=== PATIENT | female | born 1955 | race Caucasian/White ===

== ENCOUNTER 2023-02-06 08:08 | Outpatient (OUT) | payer MEDICARE, OTHER, SELFPAY ==
--- NOTE | 2023-02-06 08:16 | CT_ITS ---
[address] [address] Patient Name: ANTONIO BLACKWELL MRN: [id number] date: 1955 Sex: F Assigned Patient Location: CT Current Patient Location: Accession/Order Number: [id number] Exam Date: 02/06/2023 08:20 Report Date: 02/10/2023 09:04 At the request of: MALLORY NELSON Procedure: CT lung screening low-dose EXAMINATION: CT lung screening low-dose HISTORY: Smoker F17.200, Screening For Lung Cancer Z12.2 COMPARISON: No relevant comparison available. TECHNIQUE: Axial, Coronal, and Sagittal images were created without the administration of IV contrast material. Dose reduction techniques were achieved by using automated exposure control and/or adjustment of mA and/or kV according to patient size and/or use of iterative reconstruction technique. FINDINGS: LUNGS: 5 mm nodule within anterior base of right upper lobe. 2 adjacent 4 mm irregular opacities within anterior lateral right middle lobe. A few pleural-based nodular densities within left hemithorax, largest is 7 mm. No overtly suspicious nodules or infiltrates. PLEURA: No mass, effusion, or pneumothorax. VASCULATURE: No abnormality. MORE: No mass or pathologic adenopathy. MEDIASTINUM: No mass or pathologic adenopathy. CARDIAC: No enlargement, pericardial thickening, or significant calcification. AORTA: No aneurysm or dissection. CHEST WALL: No mass or axillary adenopathy BONES: No bone lesion or fracture. LIMITED ABDOMEN: No suspicious findings. Limited images of the upper abdomen. OTHER: Negative. CT/CT lung screening low-dose IMPRESSION: 1. Lung-RADS Category 3- Probably benign. Probably benign finding(s)- short term follow up suggested; includes nodules with a low likelihood of becoming a clinically active cancer. Six month LDCT. Electronically authenticated by: CAM BETANCOURT Date: 02/10/2023 09:04
--- NOTE | 2023-02-06 08:16 | MM_ITS ---
Patient: ANTONIO BLACKWELL Exam Date: 02/06/2023 : 1955 Gender:F Ordering : MRS. TEJADA OMAR STOCK HANDLER-C Admission #: [id number] Family : DR GAYLE TEJEDA M.D. Order #: [id number] CLICK HERE TO VIEW EXAM RADIOLOGY REPORT PROCEDURE: MM TOMOSYNTHESIS SCREENING BI COMPARISON: None. INDICATIONS: Screening Calculator Name NCI Breast Cancer Risk Assessment Tool 5 Year Breast Cancer Risk 1.50% Lifetime Breast Cancer Risk 5.60% Personal Breast Cancer No Personal Ovarian Cancer No Treatments None Family Cancers None LOCATION: [facility] BREAST COMPOSITION: Heterogeneously dense,which may obscure small masses. FINDINGS: DIAGNOSTIC CATEGORY 2--BENIGN FINDING: Scattered benign-appearing nodules are present. Scattered benign-appearing calcifications are present. Scattered benign-appearing lymph nodes are present. RIGHT BREAST: No significant suspicious finding. LEFT BREAST: No significant suspicious finding. RECOMMENDATIONS: ROUTINE MAMMOGRAM AND CLINICAL EVALUATION IN 12 MONTHS. PLEASE NOTE: A NORMAL MAMMOGRAM DOES NOT EXCLUDE THE POSSIBILITY OF BREAST CANCER. A CLINICALLY SUSPICIOUS PALPABLE LUMP SHOULD BE BIOPSIED. Dictated by: Jose Roberto Ruffin MD on 02/06/2023 at 11:00 Approved by: Jose Roberto Ruffin MD on 02/06/2023 at 11:02
== END 2023-02-06 08:09 | disposition home or self-care (01) ==
LOC: CT 08:11
PROVIDERS: PCP Family Medicine; Visit Provider Nurse Practitioner Family
DX: F17.210 Nicotine dependence, cigarettes, uncomplicated (principal); Z12.2 Encounter for screening for malignant neoplasm of respiratory organs; Z12.31 Encounter for screening mammogram for malignant neoplasm of breast; R91.1 Solitary pulmonary nodule
CPT/HCPCS: 71271; 77063; 77067

== ENCOUNTER 2023-07-17 09:27 | Outpatient (OUT) | payer MEDICARE, OTHER, SELFPAY ==
--- NOTE | 2023-07-17 09:29 | CT_ITS ---
The [address] [address] Patient Name: ANTONIO BLACKWELL MRN: [id number] date: 1955 Sex: F Assigned Patient Location: CT Current Patient Location: CT Accession/Order Number: [id number] Exam Date: 07/17/2023 09:30 Report Date: 07/17/2023 11:03 At the request of: MALLORY NELSON Procedure: CT chest wo con EXAM: CT chest wo con HISTORY: Cigarette Smoker F17.210 follow-up pulmonary nodules COMPARISON: CT chest 02/06/2023. TECHNIQUE: CT imaging obtained through the chest without intravenous contrast. Coronal and axial MIP reformatted images obtained. Dose reduction techniques performed. FINDINGS: Heart size is normal. Mild to moderate coronary calcification No pericardial effusion. Normal thoracic vasculature. No thoracic lymphadenopathy. Central tracheobronchial tree is patent. No pleural effusion or pneumothorax. Scattered small pulmonary nodules are unchanged. A few small nodules, including at the right major fissure on image 58, the right minor fissure on image 51, and a pleural-based nodule at the left lung base on image 58, are most compatible with intrapulmonary lymph nodes, and are unchanged. Bones and soft tissues: No suspicious bone findings. Partially imaged upper abdomen: Limited. CT/CT chest wo con IMPRESSION: Stable pulmonary nodules. Lung-RADS Category 2. Benign findings. Electronically authenticated by: BO PATEL Date: 07/17/2023 11:03
--- OUTSIDE RECORDS SUMMARY | 2023-07-17 09:41 | XMS_ITS | CCD ---
Author Organization [facility] Care Team Providers Care Jewel Cupping Machine Operator Name Role Phone Christine Correa Admitting Unavailable Christine Correa Attending Unavailable MarcellRufus malcolm Primary Care Unavailable MOUKARBEL, DR POLK Admitting Unavailable ILEANA, DR ARAUJO Primary Care Unavailable MOUKARBFRANKLYN, DR POLK Attending Unavailable ILEANA, DR ARAUJO Primary Care Unavailable MOUKARBEL, DR POLK Attending Unavailable MOUKARBEL, DR POLK Consulting Unavailable MOUKARBEL, DR POLK Admitting Unavailable ZIEBER, DR CAM Cunningham Consulting Unavailable ILEANA, DR ARAUJO Primary Care Unavailable MOUKARBEL, DR POLK Attending Unavailable MOUKARBEL, DR POLK Admitting Unavailable MOUKARBEL, DR POLK Consulting Unavailable ILEANA, DR ARAUJO Primary Care Unavailable APOORVA NINO Attending Unavailable MICAAPOORVA CONTE Admitting Unavailable Daniadurga Demianwestley Unavailable Aaron BLAIR Attending Unavailable Medications Current Medications Medication Drug Class(es) Dates Sig (Normalized) Sig (Original) Aspir-81 (1 source) Aspir-81 Active atorvastatin 40 mg oral tablet (1 source) HMG-CoA Reductase Inhibitor take 1 tablet by mouth every twenty-four hours Atorvastatin Calcium 40 MG 1 tablet Orally Once a day for 90 Days Active lisinopril 20 mg oral tablet (1 source) Angiotensin Converting Enzyme Inhibitor take 1 tablet by mouth every twenty-four hours Lisinopril 20 MG 1 tablet Orally Once a day Active 24 hr metoprolol succinate 25 mg extended release oral tablet (1 source) beta-Adrenergic Sandra take 1 tablet by mouth every twenty-four hours Metoprolol Succinate ER 25 MG 1 tablet Orally Once a day Active Problems Active Problems Problem Classification Problem Date Documented Da te Episodic/Chronic Abdominal pain (1 source) Abdominal pain; Translations: [Unspecified abdominal pain] Episodic Chronic kidney disease (1 source) Chronic kidney disease stage 3A ; Translations: [Chronic kidney disease, stage 3a] Chronic Essential hypertension (2 sources) Essential hypertension; Translations: [Essential (primary) hypertension] Onset: 11-06-2021 Resolved: 11-06-2021 Chronic Hypertension with complications and secondary hypertension (4 sources) Hypertensive chronic kidney disease with stage 1 through stage 4 chronic kidney disease, or unspecified chronic kidney disease; Translations: [HTN CKD W/STAGE 1-4 CKD/UNS CKD] Onset: 11-11-2020 Chronic Other gastrointestinal disorders (1 source) Constipation; Translations: [Constipation, unspecified] Episodic Other nutritional; endocrine; and metabolic disorders (1 source) Obese class I; Translations: [Body mass index (BMI) 33.0-33.9, adult] Chronic Unclassified (1 source) M53.3 - Sacrococcygeal disorders, not elsewhere classified; Translations: [M53.3 - Sacrococcygeal disorders, not elsewhere classified] Onset: 06-22-2018 Past or Other Problems Problem Classification Problem Date Documented Da te Episodic/Chronic Chronic kidney disease (6 sources) Chronic kidney disease; Translations: [CHRONIC KIDNEY DISEASE STAGE 3B] Onset: 11-21-2020 Resolved: 11-06-2021 Other aftercare (1 source) longterm (current) use of non-steroidal anti-inflammator ies (NSAID) Onset: 11-06-2021 Resolved: 11-06-2021 Episodic Results Test Name Value Interpretation Reference Range Facil ity US KIDNEYSon 11-13-2020 US KIDNEYS EXAMINATION: US KIDNEYS HISTORY: CKD stage 3B , hypertension COMPARISON: No relevant comparison available. TECHNIQUE: Ultrasound examination was performed of the kidneys and bladder. FINDINGS: Right Kidney: Height: 4.9 cm Length: 9.3 cm Width: 4.6 cm Right Renal Artery Proximal PSV: 121.1 cm/s Proximal EDV: 30.2 cm/s Mid PSV: 105.1 cm/s Mid EDV: 24.1 cm/s Distal PSV: 94.1 cm/s Distal EDV: 26.5 cm/s Right Arcuate Artery Superior PSV: 27.3 cm/s Superior EDV: 10.2 cm/s Middle PSV: 28.0 cm/s Middle EDV: 12.3 cm/s Inferior PSV: 25.2 cm/s Inferior EDV: 10.9 cm/s Left Kidney: Height: 4.5 cm Length: 9.7 cm Width: 5.2 cm Left Renal Artery Proximal PSV: 109.4 cm/s Proximal EDV: 30.9 cm/s Mid PSV: 125.8 cm/s Mid EDV: 43.7 cm/s Distal PSV: 94.8 cm/s Distal EDV: 32.7 cm/s Left Arcuate Artery Superior PSV: 22.9 cm/s Superior EDV: 11.5 cm/s Middle PSV: 26.5 cm/s Middle EDV: 11.5 cm/s Inferior PSV: 25.8 cm/s Inferior EDV: 13.0 cm/s Aorta PSV: 78.3 cm/s Aorta EDV: 13.8 cm/s IMPRESSION: 1. Borderline mildly elevated flow velocities within the renal arteries bilaterally. 2. Normal appearance of kidneys; no cortical thinning, hydronephrosis, stones, or visible mass. Electronically authenticated by: CAM BETANCOURT Date: 2020-11-13 09:11 Normal The [facility] PROF CHEM 8 (BAS METB)on Anion gap [Moles/Vol] 16.3 mmol/L Normal [facility] Comment on above: Performed By: #### B MP #### [facility] [address] [place], [place] [address] Julieta Ann-Marie Calcium [Mass/Vol] 9.5 mg/dL Normal 8.4-10.2 [facility] Comment on above: Performed By: #### B MP #### [facility] [address] [place], [place] [address] Julieta Ann-Marie Chloride [Moles/Vol] 101 mmol/L Normal 98-107 [facility] Comment on above: Performed By: #### B MP #### [facility] [address] [place], [place] [address] Julieta Ann-Marie CO2 [Moles/Vol] 26.3 mmol/L Normal 22.0-30.0 [facility] Comment on above: Performed By: #### B MP #### [facility] [address] [place], [place] [address] Julieta Ann-Marie Creatinine [Mass/Vol] 1.22 mg/dL Critically high 0.52-1.04 [facility] Comment on above: Performed By: #### B MP #### [facility] [address] [place], [place] [address] Julieta Ann-Marie EGFR-AF KYRGYZ 54 mL/min/1.73m2 Critically low >=60 [facility] Comment on above: Performed By: #### B MP #### [facility] [address] [place], [place] [address] Julieta Ann-Marie EGFR-NON AF KYRGYZ 45 mL/min/1.73m2 Critically low >=60 [facility] Comment on above: Performed By: #### B MP #### [facility] [address] [place] [id number] Julieta Ann-Marie Glucose [Mass/Vol] 100 mg/dL Normal 74-106 [facility] Comment on above: Performed By: #### B MP #### [facility] [address] [place] [id number] Julieta Ann-Marie Potassium [Moles/Vol] 4.6 mmol/L Normal 3.4-5.0 [facility] Comment on above: Performed By: #### B MP #### [facility] [address] [place] [id number] Julieta Ann-Marie Sodium [Moles/Vol] 139 mmol/L Normal 137-145 [facility] Comment on above: Performed By: #### B MP #### [facility] [address] [place] [id number] Julieta Ann-Marie Urea nitrogen [Mass/Vol] 32.0 mg/dL Critically high 7.0-17.0 [facility] Comment on above: Performed By: #### B MP #### [facility] [address] [place], [place] [address] Julieta Ann-Marie Urea nitrogen/Creatinine [Mass ratio] 26.2 mg/mg Normal [facility] Comment on above: Performed By: #### B MP #### [facility] [address] [place], [place] [address] Julieta Ann-Marie PROTEIN RAND URINEon 11-11-2 021 UR PROT <5.0 Normal <=12.0 [facility] Comment on above: Performed By: #### P ROTU #### [facility] [address] [place] [address] Julieta Ann-Marie UA RANDOM W/MICROSCOPICon BACTERIA TRACE Abnormal NONE SEEN [facility] Comment on above: Performed By: #### U AMIC #### [facility] [address] [place] [address] Julieta Ann-Marie Bilirubin Ql (U) Negative Normal NEGATIVE [facility] Comment on above: Performed By: #### U AMIC #### [facility] [address] [place] [address] Julieta Ann-Marie CAST NONE SEEN Normal NONE SEEN [facility] Comment on above: Performed By: #### U AMIC #### [facility] [address] [place] [address] Julieta Ann-Marie Clarity (U) SL CLOUDY Abnormal CLEAR [facility] Comment on above: Performed By: #### U AMIC #### [facility] [address] [place] [address] Julieta Ann-Marie Color (U) LT. YELLOW Normal YELLOW [facility] Comment on above: Performed By: #### U AMIC #### [facility] [address] [place] [address] Julieta Ann-Marie Crystals LM Nom (Urine sed) NONE SEEN Normal NONE SEEN [facility] Comment on above: Performed By: #### U AMIC #### [facility] [address] [place] [address] Julieta Ann-Marie Epithelial cells LM Ql (Urine sed) RARE Normal NONE SEEN /RARE [facility] Comment on above: Performed By: #### U AMIC #### [facility] [address] [place] [address] Julieta Ann-Marie Glucose Ql (U) Negative Normal NEGATIVE The [facility] Comment on above: Performed By: #### U AMIC #### [facility] [address] [place] [address] Julieta Ann-Marie Hemoglobin Ql (U) MODERATE Abnormal NEGATIVE [facility] Comment on above: Performed By: #### U AMIC #### [facility] [address] [place] [address] Julieta Ann-Marie Ketones Ql (U) Negative Normal NEGATIVE The [facility] Comment on above: Performed By: #### U AMIC #### [facility] [address] [place] [phone] Julieta Ann-Marie LEUKOCYTES TRACE Abnormal NEGATIVE [facility] Comment on above: Performed By: #### U AMIC #### [facility] [address] [place] [phone] Julieta Ann-Marie MUCOUS NONE SEEN Normal NONE SEEN [facility] Comment on above: Performed By: #### U AMIC #### [facility] [address] [place] [address] Julieta Ann-Marie Nitrite Ql (U) Negative Normal NEGATIVE The [facility] Comment on above: Performed By: #### U AMIC #### [facility] [address] [place] [address] Julieta Ann-Marie pH (U) 5.5 [pH] Normal 5-9 [facility] Comment on above: Performed By: #### U AMIC #### [facility] [address] [place] [address] Julieta Ann-Marie RBC 0-2 Normal 0-2 [facility] Comment on above: Performed By: #### U AMIC #### [facility] [address] [place] [address] Julieta Ann-Marie SPEC GRAVITY 1.010 Normal 1.005-<=1.025 The [facility] Comment on above: Performed By: #### U AMIC #### [facility] [address] [place] [address] Julieta Ann-Marie UA PROTEIN Negative Normal NEGATIVE/ TRACE [facility] Comment on above: Performed By: #### U AMIC #### [facility] [address] [place], [place] [id number] Julieta Ann-Marie Urobilinogen Qn (U) 0.2 {Khang'U}/dL Normal 0.2 - 1. 0 [facility] Comment on above: Performed By: #### U AMIC #### [facility] [address] [place] [address] Julieta Ann-Marie WBC 0-2 Abnormal NONE SEEN [facility] Comment on above: Performed By: #### U [facility] #### [facility] [address] [place] [phone] Julieta Jacobsen XR hip LT min 2V(w/wo pelvis )*on 06-22-2018 XR hip LT min 2V(w/wo pelvis)* [facility] [place] [address] [place] [address] XRay Report Signed Patient: Antonio Juárez MR#: [id number] : 1955 Acct:[id number] Age/Sex: 63 / F ADM Date: 06/22/18 Loc: XDUCLY Room: Type: [facility] Attending Dr: Christine Correa NP Ordering Provider: Christine Correa NP Date of Service: 06/22/18 XR/XR wrist RT min 3V*: PAIN AFTER FALL ([id number]) XR/XR hip LT min 2V(w/wo pelvis)*: PAIN AFTER FALL ([id number]) XR/XR sacrum coccyx min 2V: PAIN AFTER FALL Copies to: Christine Correa NP 4 views RIGHT wrist HISTORY: Fell yesterday. Continued pain of the RIGHT wrist and tailbone. LEFT hip pain. COMPARISON:None No acute bony process or significant bony malalignment is present. XR/XR wrist RT min 3V* IMPRESSION: No significant bony abnormality. 2 views LEFT hip HISTORY: Fell COMPARISON:None No acute bony process or significant bony malalignment is present. IMPRESSION: No significant bony abnormality. 5 views of the sacrum and coccyx HISTORY: Fell COMPARISON:None No acute bony process or significant bony malalignment is present.SI joints are maintained. No coccygeal displacement or sacral fracture identified. IMPRESSION: No significant bony abnormality. Impression dictated by: Reagan Portillo M.D.06/22/2018 10:49 AM [facility] Transcribed By: LILIAN 06/22/18 1049 Dictated By: Reagan Portillo DO 06/22/18 1046 Signed By: 06/22/18 1049 Normal [facility] Vital Signs Date Time Vital Sign Value Performing Clinician Facility 11-06-2021 11:20-0400 Body height 152.4 cm Aziz Bakhous Other [facility] Other 11-06-2021 11:20-0400 Body mass index (BMI) [Ratio] 35.93 kg/m2 Aziz Bakhous Other [facility] Other 11-06-2021 11:20-0400 Body temperature 97.8 [degF] Aziz Bakhous Other [facility] Other 11-06-2021 11:20-0400 Body weight 83.46 kg Aziz Bakhous Other [facility] Other 11-06-2021 11:20-0400 Diastolic blood pressure 74 mm[Hg] Aziz Bakhous Other [facility] Other 11-06-2021 11:20-0400 Respiratory rate 18 /min Aziz Bakhous Other [facility] Other 11-06-2021 11:20-0400 SaO2% (BldA) [Mass fraction] 97 % Aziz Bakhous Other [facility] Other 11-06-2021 11:20-0400 Systolic blood pressure 125 mm[Hg] Aziz Bakhous Other [facility] Other Encounters Encounter Date Encounter Type Care Provider Facility Start: 03-31-2023 ambulatory Aaron Norman ty:FLAV[facility] Nicholas Start: 11-06-2021 End: 11-06-2021 ambulatory Azwestley Bakhous Other [facility] Other Start: 11-06-2021 Office outpatient ne w 30 minutes Aziz Bakhous [facility] Start: 08-14-[address] RUFUS TEJEDA Facility: [facility] Start: 05-22-[address] FELICITAS Chau ility:[facility] Start: 12-13-2020 End: 12-14-[address] RUFUS TEJEDA Facility:[facility] Start: 11-11-2020 End: 11-12-[address] CAM BETANCOURT Facility:[facility] Start: 06-22-2018 End: 06-22-2018 Patient encounter procedure Christine Correa Facility:[facility] Payers Date Payer Category Payer Self-pay 1957 Unknown [id number] 1955 Unknown [id number] [id number] [id number] 1955 Unknown [id number] 2.16.84 [id number] 1955 Unknown [id number] 2.16.84 [id number] 1955 Unknown [id number] 2.16.84 [id number] Unknown [id number] Social History Date Type Detail Facility Unknown if ever smoked [facility] Other Sex Assigned At Sex Assigned At Bir th [facility] Other Evaluation note 11-06-2021 Note Date & Type Note Facility 11-06-2021 Evaluation note Encounter Date Diagnosis Assessment Notes Oct, Chronic kidney disease, stage 3a (ICD-10 - N18.31) CKD is likely from NSAID use. I asked the patient to stop NSAIDs. Blood pressure seems well controlled. Patient is already on lisinopril No fluid overload I asked the patient to stop NSAIDs Follow-up with the patient in 4 months Oct, Primary hypertension (ICD-10 - I10) Blood pressure seems well controlled. I will continue same blood pressure medication Oct, NSAID long-term use (ICD-10 - Z79.1) I asked the patient to stop NSAIDs and take Tylenol instead [facility] Other History general Narrative - Reported Note Date & Type Note Facility History general Narrative - Reported Type Medical History HTN Surgical History C SECTIONS X3 Hospitalization History see above Hospitalization History HTN [facility] Other Summary Purpose Family History No Family History Records FoundNo Family History Records FoundNo Family History Records Found Advance Directives No Advanced Directives Records FoundNo Advanced Directives Records FoundNo Advanced Directives Records Found Additional Source Comments INFORMATION SOURCE (unrecogn ized section and content) DATE CREATED AUTHOR 07/01/2018 [facility] DATE CREATED AUTHOR AUTHOR'S ORGANIZ ATION 08/17/2021 [facility] DATE CREATED AUTHOR AUTHOR'S ORGANIZ ATION 12/31/2022 [facility] REASON FOR VISIT (unrecogniz ed section and content) RENAL CKD 3 FOR RECORDS PERTAINING TO PATIENTS WHO ARE OR HAVE BEEN ENROLLED IN A CHEMICAL DEPENDENCY/SUBSTANCEABUSE PROGRAM, SOME INFORMATION MAY BE OMITTED. This clinical summary was aggregated from multiple sources. Caution should be exercised in using it in the provision of clinical care. This summary normalizes information from multiple sources, and as a consequence, information in this document may materially change the coding, format and clinical context of patient data. In addition, data may be omitted in some cases. CLINICAL DECISIONS SHOULD BE BASED ON THE PRIMARY CLINICAL RECORDS. [employer] provides no warranty or guarantee of the accuracy or completeness of information in this document.
== END 2023-07-17 09:28 | disposition home or self-care (01) ==
LOC: CT 09:27
PROVIDERS: PCP Family Medicine; Visit Provider Nurse Practitioner Family
DX: R91.8 Other nonspecific abnormal finding of lung field (principal); F17.210 Nicotine dependence, cigarettes, uncomplicated
CPT/HCPCS: 71250

== ENCOUNTER 2024-12-08 08:41 | Outpatient (OUT) | payer MEDICARE, OTHER, SELFPAY ==
--- OUTSIDE RECORDS SUMMARY | 2024-11-29 15:15 | XMS_ITS | Encounter Summary ---
Author Organization [facility] Address [address] [place] [address] Care Team Providers Care Landcare Facilitator Name Role Phone Rufus House MD Primary Care Provider [phone] Reason for Referral * Imaging (Routine) - Pending Review Specialty Diagnoses / Procedures Referred By Contac t Referred To Contact Cardiology Diagnoses Coronary artery disease involving kasigl[place] coronary artery of [place] heart without angina pectoris Dizziness Procedures Transthoracic echo (TTE) complete Phuc Gee MD [address] [place] [address] Phone: tel: fax: Referral ID Status Reason Start Date Expiration Date Visits Requested Visits Authorized [id number] Pending Review Perform Procedure 11/29/2024 11/29/2025 1 1 Encounter Details Date Type Department Care Team (Late st Contact Info) Description 11/29/2024 3:15 PM EDT Office Visit [address] [address] Phuc Gee MD [address] [place] [address] Coronary artery disease involving kasigluk coronary artery of [place] heart without angina pectoris (Primary Dx); Primary hypertension; Dizziness Social History Tobacco Use Types Packs/Day Years Used Date Smoking Tobacco: Every Day Cigarettes Smokeless Tobacco: Never Tobacco Cessation:Ready to Q uit: Not Asked; Counseling Given: Not Answered Alcohol Use Standard Drinks/Week Comments Not Currently 0 (1 standard drink = 0.6 oz pur e alcohol) Comments Unknown Sex and Gender Information Value Date Recorded Sex Assigned at Female 11/24/2024 9:20 AM EDT Legal Sex Female 11:27 PM EDT Gender Identity Female 11/24/2024 9:20 AM EDT Sexual Orientation Heterosexual or Straight 09/2024 9:20 AM EDT documented as of this encounter Last Filed Vital Signs Vital Sign Reading Time Taken Comments Blood Pressure 132/80 11/29/2024 3:33 PM EDT Pulse 59 11/29/2024 3:33 PM EDT Temperature - - Respiratory Rate - - Oxygen Saturation 98% 11/29/2024 3:33 PM EDT Inhaled Oxygen Concentration - - Weight 79.4 kg (175 lb) 11/29/2024 3:33 PM EDT Height 152.4 cm (5') 11/29/2024 3:33 PM EDT Body Mass Index 34.18 11/29/2024 3:33 PM EDT documented in this encounter Progress Notes * Phuc Gee MD - 11/29/2024 3:15 PM EDT Images from the original note were not included. [place] [facility] Subjective Stephanie Juárez is a 69 y.o. year old female patient being as to re-establish care with cardiology. Patient states her blood pressure has been running high her PCP upped her metoprolol to 75mg, patient states her blood pressure are still high and vary a lot. Patient states she has been dizzy and lightheaded and is not sure if its the blood pressure or if its the medication. Patient states she has chest pressure which goes from her chest, to her back and jaw line. Patient states her symptoms could be from anxiety due to family issues. Patient complains of leg swelling when she wakes up in themorning, palpitations/racing heart. SOB and fatigue. Patient Active Problem List Diagnosis Anxiety Asthmatic bronchitis Body mass index (BMI) 36.0-36.9, adult Carotid artery stenosis Chest pain Chronic obstructive pulmonary disease (CMS/HCC) Constipation Coronary arteriosclerosis Electrocardiogram abnormal Hypertensive disorder Pure hypercholesterolemia Seasonal allergic rhinitis Sialoadenitis Skin sensation disturbance Smoker Stage 3a chronic kidney disease (CMS/HCC) Tarsal tunnel syndrome Adjustment disorder with anxiety Morbid (severe) obesity due to excess calories (CMS/HCC) Pulmonary nodules Sialolithiasis Vitamin D deficiency Family History Problem Relation Name Age of Onset Coronary artery disease Father Social History Tobacco Use Smoking status: Every Day Current packs/day: 1.00 Types: Cigarettes Smokeless tobacco: Never Substance Use Topics Alcohol use: Not Currently Drug use: Never HPI Stephanie is seen as a new patient to re-establish care. I had seen her in the past last time in 2014. she is a 69-year-old woman with history of coronary artery disease mild nonobstructive by cardiac catheterization in 2014. At that time I managed her chest pain symptoms medically. In addition she has hypertension and hyperlipidemia on treatment. In the past she used to have chronic kidney disease and this improved apparently on follow-up afterstopping NSAIDs. Today she reports that she has been having occasional symptoms of chest discomfort similar to what she had in the past. Those are very infrequent and are not bothering her. In addition she has infrequent symptoms of palpitations. She has no shortness of breath at rest or with exertion. No leg edema. She complains of occasional dizziness and lightheadedness. Her blood pressure monitoring at home shows elevated blood pressure with systolic around 160. Her PCP recently increase metoprolol succinate to 75 mg once daily. Review of Systems Constitutional: Positive for malaise/fatigue. Cardiovascular: Positive for chest pain and palpitations. Negative for dyspnea on exertion and leg swelling. Respiratory: Negative for shortness of breath. Neurological: Positive for dizziness and light-headedness. Objective Visit Vitals BP 132/80 (BP Location: Left arm, Patient Position: Sitting) Pulse 59 Ht 1.524 m (5') Wt 79.4 kg (175 lb) SpO2 98% BMI 34.18 kg/m?? Smoking Status Every Day BSA 1.83 m?? Physical Exam Constitutional: Appearance: She is well-developed. She is obese. She is not ill-appearing. HENT: Head: Normocephalic and atraumatic. Nose: Nose normal. Eyes: General: No scleral icterus. Pupils: Pupils are equal, round, and reactive to light. Neck: Thyroid: No thyromegaly. Vascular: No JVD. Cardiovascular: Rate and Rhythm: Normal rate and regular rhythm. Pulses: Radial pulses are 2+ on the right side and 2+ on the left side. Heart sounds: Normal heart sounds. No murmur heard. No friction rub. No gallop. Pulmonary: Effort: Pulmonary effort is normal. No respiratory distress. Breath sounds: Normal breath sounds. No wheezing or rales. Chest: Chest wall: No tenderness. Abdominal: General: Bowel sounds are normal. There is no distension. Palpations: Abdomen is soft. Tenderness: There is no abdominal tenderness. Musculoskeletal: General: No swelling. Cervical back: Neck supple. Skin: General: Skin is warm and dry. Neurological: General: No focal deficit present. Mental Status: She is alert and oriented to person, place, and time. Psychiatric: Mood and Affect: Mood normal. Behavior: Behavior is cooperative. Judgment: Judgment normal. Allergies Allergies Allergen Reactions Azithromycin Unknown Other Reaction(s): tongue swelling Amoxicillin Other Sulfa (Sulfonamide Antibiotics) Sulfamethoxazole-Trimethoprim Unknown Other Reaction(s): Fogginess Medications Current Outpatient Medications: ALPRAZolam (Xanax) 0.25 mg tablet, alprazolam 0.25 mg tablet PRN (Patient taking differently: Take 0.25 mg by mouth if needed each day.), Disp: , Rfl: aspirin 81 mg EC tablet, in the morning., Disp: , Rfl: atorvastatin (Lipitor) 40 mg tablet, atorvastatin 40 mg tablet TAKE 1 TABLET BY MOUTH EVERY DAY FOR90 DAYS, Disp: , Rfl: lisinopril 20 mg tablet, lisinopril 20 mg tablet TAKE 1 TABLET BY MOUTH EVERY DAY, Disp: , Rfl: nitroglycerin (Nitrostat) 0.4 mg SL tablet, Nitrostat 0.4 mg sublingual tablet, Disp: , Rfl: amLODIPine (Norvasc) 5 mg tablet, Take 1 tablet (5 mg) by mouth in the morning., Disp: 90 tablet, Rfl: 3 ljwaicyfpe-hlprhsjx-xahngkrvsf (Breztri Aerosphere) 160-9-4.8 mcg/actuation HFA aerosol inhaler, every 12 (twelve) hours. (Patient not taking: Reported on 11/29/2024), Disp: , Rfl: isosorbide mononitrate ER (Imdur) 30 mg 24 hr tablet, isosorbide mononitrate ER 30 mg tablet,extended release 24 hr (Patient not taking: Reported on 11/29/2024), Disp: , Rfl: metoprolol succinate XL (Toprol-XL) 25 mg 24 hr tablet, Take 3 tablets (75 mg) by mouth in the morning. Do not crush or chew., Disp: 270 tablet, Rfl: 3 Recent Labs Blood testing 11/06/2020: Hemoglobin 15.1, platelets 224, BUN 25, creatinine 1.5, EGFR 34, potassium4.3, LFTs normal, triglycerides 209, cholesterol 247, LDL 150, HDL 55. TSH 1.580. Imaging and other tests Cardiac catheterization 08/25/2014: Mild two-vessel coronary artery disease involving the proximal LAD and mid RCA. 20% proximal to midLAD narrowing, 20% mid RCA narrowing. carotid ultrasound October 2020: Mild plaque disease in the carotids. Stress test 08/15/2014: No evidence of ischemia. Normal myocardial perfusion with soft tissue artifact. No ischemic ECG changes seen. Echocardiogram 08/16/2014: Global left ventricular systolic function is normal. LVEF 60%. Normal diastolic function. Normal right ventricular systolic function. Mild tricuspid regurgitation. Doppler studies suggest normal right-sided pressures. Assessment/Plan Diagnoses and all orders for this visit: Coronary artery disease involving kasigluk coronary artery of [place] heart without angina pectoris - metoprolol succinate XL (Toprol-XL) 25 mg 24 hr tablet; Take 3 tablets (75 mg) by mouth in the morning. Do not crush or chew. - Transthoracic echo (TTE) complete; Future Primary hypertension - amLODIPine (Norvasc) 5 mg tablet; Take 1 tablet (5 mg) by mouth in the morning. - metoprolol succinate XL (Toprol-XL) 25 mg 24 hr tablet; Take 3 tablets (75 mg) by mouth in the morning. Do not crush or chew. Dizziness - Transthoracic echo (TTE) complete; Future 1. CAD, no clear angina: Overall doing well. I will continue current aspirin, statin and metoprololsuccinate. Her blood pressure is not controlled I will add amlodipine 5 mg once daily that will also act as an antianginal medication and will have with any residual angina she might have. 2. Hypertension: I reviewed all her blood pressure monitoring and it shows that the blood pressure is not controlled. I will add amlodipine 5 mg once daily. I agree with the recent increase of metoprolol succinate to 75 mg once daily. I have refilled that for her. 3. CAD, dizziness: I am going to check an echocardiogram to rule out any structural heart disease. If the blood pressure is controlled and the echocardiogram does not show significant abnormalities,then I will plan on seeing her in follow-up in 1 year. Follow up in about 1 year (around 11/29/2025). Phuc Gee MD documented in this encounter Plan of Treatment Scheduled Orders Name Type Priority Associated Diagnoses Order Schedule Transthoracic echo (TTE) complete Echocardiography Routine Coronary artery disease involving kasigl[place] coronary artery of [place]igl[place] heart without angina pectoris Dizziness Expected: 11/29/2024 (Approximate), Expires: 11/29/2026 documented as of this encounter Visit Diagnoses Diagnosis Coronary artery disease involving kasigl[place] coronary artery of kas[place] heart without angina pectoris- Primary Primary hypertension Unspecified essential hypertension Dizziness Dizziness and giddiness documented in this encounter Care Teams Landcare Facilitator Relationship Specialty Start Date End Date Rufus House MD 3 [facility] PCP - General 03/25/22 documented as of this encounter
--- OUTSIDE RECORDS SUMMARY | 2024-12-08 08:43 | XMS_ITS | Encounter Summary ---
Author Organization [facility] Address [address] [place] [address] Care Team Providers Care Firewood Cutter Name Role Phone Rufus House MD Primary Care Provider [phone] Love Ortega BRUSH HAND Unavailable [phone] Bertha Hernandez RN Unavailable [phone] Encounter Details Date Type Department Care Team (Late st Contact Info) Description 05/10/2024 Abstract [facility] [address] [facility] [address] [place] [address] Rufus House MD [address] [facility] [address] [place] [address] Social History Tobacco Use Types Packs/Day Years Used Date Smoking Tobacco: Every Day Cigarettes Smokeless Tobacco: Never Alcohol Use Standard Drinks/Week Comments Not Currently 0 (1 standard drink = 0.6 oz pure alcohol) caffeine intajke: 2-3 cups per day PHQ-2 Answer Date Recorded Patient Health Questionnaire-2 Score 0 03/30/2024 Comments Unknown Sex and Gender Information Value Date Recorded Sex Assigned at Not on file Legal Sex Female 7:47 PM EDT Gender Identity Not on file Sexual Orientation Not on file documented as of this encounter Plan of Treatment Not on file documented as of this encounter Visit Diagnoses Not on filedocumented in this encounter Additional Health Concerns Assessment Noted Time PHQ-9 Depression Total Score: 0 01/24/20 23 12:00 PM EDT documented as of this encounter Care Teams Firewood Cutter Relationship Specialty Start Date End Date Rufus House MD [address] [facility] [address] [place] [address] PCP - General Family Medicine 08/27/22 Love Ortega NP 112 [facility] 110 [place] [address] PCP - ACO Reach 05/28/24 Bertha Hernandez, RN [address] [facility] [address] [place] [address] Registered Nurse Family Medicine 06/02/24 06/07/24 documented as of this encounter
--- OUTSIDE RECORDS SUMMARY | 2024-12-08 08:43 | XMS_ITS | Encounter Summary ---
Author Organization [facility] Address [address] [place] [address] Care Team Providers Care Director Speech And Hearing Name Role Phone Rufus Tejeda MD Primary Care Provider Mallory Nelson NP Unavailable [phone] Bertha Hernandez RN Unavailable [phone] Encounter Details Date Type Department Care Team (Late st Contact Info) Description 02/10/2023 Clinisync Result Encounter [facility] External Department Unsolicited Mallory Nelson, GIANFRANCO [address] [facility] [address] [place] [address] Social History Tobacco Use Types Packs/Day Years Used Date Smoking Tobacco: Every Day Cigarettes Alcohol Use Standard Drinks/Week Comments Not Asked 0 (1 standard drink = 0.6 oz pure alcohol) caffeine intajke: 2-3 cups per day PHQ-2 Answer Date Recorded Patient Health Questionnaire-2 Score 0 01/23/2023 Comments Unknown Sex and Gender Information Value Date Recorded Sex Assigned at Not on file Legal Sex Female 7:47 PM EDT Gender Identity Not on file Sexual Orientation Not on file documented as of this encounter Plan of Treatment Not on file documented as of this encounter Procedures Procedure Name Priority Date/Time Associated Diagnosis Comments CT LUNG SCREENING LOW DOSE 02/10/2023 9:04 AM EDT documented in this encounter Results * CT LUNG SCREENING LOW DOSE (02/10/2023 9:04 AM EDT) Anatomical Region Laterality Modality Other 02/10/2023 9:04 AM EDT Narrative 02/10/2023 9:04 AM EDT [address] [address] [address] Scan Report Signed Patient: STEPHANIE JUÁREZ MR#: [id number] : 1955 Acct:[id number] Age/Sex: 67 / F ADM Date: 02/06/23 Loc: CT Attending Dr: MALLORY NELSON Ordering Physician: MALLORY NELSON Date of Service: 02/06/23 Procedure(s): CT lung screening low-dose Accession Number(s): [id number] cc: RUFUS TEJEDA [place] [id number] Patient Name: STEPHANIE JUÁREZ MRN: [id number] date: 1955 Sex: F Assigned Patient Location: CT Current Patient Location: Accession/Order Number: [id number] Exam Date: 02/06/2023 08:20 Report Date: 02/10/2023 09:04 At the request of: MALLORY NELSON Procedure: CT lung screening low-dose EXAMINATION: CT lung screening low-dose HISTORY: Smoker F17.200, Screening For Lung Cancer Z12.2 COMPARISON: No relevant comparison available. TECHNIQUE: Axial, Coronal, and Sagittal images were created without the administration of IV contrast material. Dose reduction techniques were achieved by using automated exposure control and/or adjustment of mA and/or kV according to patient size and/or use of iterative reconstruction technique. FINDINGS: LUNGS: 5 mm nodule within anterior base of right upper lobe. 2 adjacent 4 mm irregular opacities within anterior lateral right middle lobe. A few pleural-based nodular densities within left hemithorax, largest is 7 mm. No overtly suspicious nodules or infiltrates. PLEURA: No mass, effusion, or pneumothorax. VASCULATURE: No abnormality. MORE: No mass or pathologic adenopathy. MEDIASTINUM: No mass or pathologic adenopathy. CARDIAC: No enlargement, pericardial thickening, or significant calcification. AORTA: No aneurysm or dissection. CHEST WALL: No mass or axillary adenopathy BONES: No bone lesion or fracture. LIMITED ABDOMEN: No suspicious findings. Limited images of the upper abdomen. OTHER: Negative. CT/CT lung screening low-dose IMPRESSION: 1. Lung-RADS Category 3- Probably benign. Probably benign finding(s)- short term follow up suggested; includes nodules with a low likelihood of becoming a clinically active cancer. Six month LDCT. Electronically authenticated by: JAREK BISHOP Date: 02/10/2023 09:04 Dictated By: Jarek Bishop M.D. Signed By: 02/10/23905 DD/ 3 TD/TT: Professional Services Specialist: Procedure Note Radiology, Radiologist, MD - 02/10/2023 [place] [address] CT Scan Report Signed Patient: STEPHANIE JUÁREZ AMR#: [id number] : 1955cct:[id number] Age/Sex: 67 / FADM Date: 02/06/23 Loc: CT Attending Dr: MALLORY NELSON Ordering Physician: MALLORY NELSON Date of Service: 02/06/23 Procedure(s): CT lung screening low-dose Accession Number(s): [id number] cc: RUFUS TEJEDA [place] [id number] Patient Name: STEPHANIE JUÁREZ MRN: [id number] date: 1955 Sex: F Assigned Patient Location: CT Current Patient Location: Accession/Order Number: [id number] Exam Date: 02/06/2023 08:20 Report Date: 02/10/2023 09:04 At the request of: MALLORY NELSON Procedure: CT lung screening low-dose EXAMINATION: CT lung screening low-dose HISTORY: Smoker F17.200, Screening For Lung Cancer Z12.2 COMPARISON: No relevant comparison available. TECHNIQUE: Axial, Coronal, and Sagittal images were created without the administration of IV contrast material. Dose reduction techniques were achieved by using automated exposure control and/or adjustment of mA and/or kV according to patient size and/or use of iterative reconstruction technique. FINDINGS: LUNGS: 5 mm nodule within anterior base of right upper lobe. 2 adjacent 4mm irregular opacities within anterior lateral right middle lobe. A few pleural-based nodular densities within left hemithorax, largest is 7 mm.No overtly suspicious nodules or infiltrates. PLEURA: No mass, effusion, or pneumothorax. VASCULATURE: No abnormality. MORE: No mass or pathologic adenopathy. MEDIASTINUM: No mass or pathologic adenopathy. CARDIAC: No enlargement, pericardial thickening, or significantcalcification. AORTA: No aneurysm or dissection. CHEST WALL: No mass or axillary adenopathy BONES: No bone lesion or fracture. LIMITED ABDOMEN: No suspicious findings. Limited images of the upperabdomen. OTHER: Negative. CT/CT lung screening low-dose IMPRESSION: 1. Lung-RADS Category 3- Probably benign. Probably benign finding(s)-short term follow up suggested; includes nodules with a low likelihood ofbecoming a clinically active cancer. Six month LDCT. Electronically authenticated by: JAREK BISHOP Date: 02/10/2023 09:04 Dictated By: Jarek Bishop M.D. Signed By:02/10/23905 DD/ 3 TD/TT: Professional Services Specialist: Mallory Nelson LOAN REVIEW ANALYST [facility] Final Resu lt documented in this encounter Visit Diagnoses Not on filedocumented in this encounter Additional Health Concerns Assessment Noted Time PHQ-9 Depression Total Score: 0 01/24/20 12:00 PM EDT documented as of this encounter Care Teams Director Speech And Hearing Relationship Specialty Start Date End Date Rufus Tejeda MD [address] [facility] [address] [place] [address] PCP - General Family Medicine 08/27/22 Mallory Nelson NP [address] [facility] [address] [place] [address] PCP - ACO Reach 05/28/24 Bertha Hernandez, MARIA R [address] [facility] [address] [place] [address] Registered Nurse Family Medicine 06/02/24 06/07/24 documented as of this encounter
--- OUTSIDE RECORDS SUMMARY | 2024-12-08 08:43 | XMS_ITS | Encounter Summary ---
Author Organization [facility] Address [address] [place] [address] Care Team Providers Care Repair Armature Winder Name Role Phone Rufus House MD Primary Care Provider [phone] Love Ortega APPLIANCE MECHANIC Unavailable [phone] Bertha Hernandez RN Unavailable [phone] Encounter Details Date Type Department Care Team (Late st Contact Info) Description 01/24/2023 Orders Only [facility] [address] [place] [address] [place] [address] A, Unknown Practice [address] [place], [place] [id number] Social History Tobacco Use Types Packs/Day Years [...] Procedure Name Priority Date/Time Associated Diagnosis Comments ELECTROCARDIOGRAM REPORT Routine 023 9:31 AM EDT documented in this encounter Results * Electrocardiogram Report (01/23/2023 9:31 AM EDT) us Unknown Practice A IN CLINIC/BEDSIDE ORDERABLES Final Result documented in this encounter Visit Diagnoses Not on filedocumented in this encounter Additional Health Concerns Assessment Noted Time PHQ-9 Depression Total Score: 0 01/24/20 23 12:00 PM EDT documented as of this encounter Care Teams Repair Armature Winder Relationship Specialty Start Date End Date Rufus House MD [address] [facility] [address] [place] [address] PCP - General Family Medicine 08/27/22 Love Ortega NP [address] [facility] [address] [place] [address] PCP - ACO Reach 05/28/24 Bertha Hernandez, MARIA R [address] [facility] [address] [place] [address] Registered Nurse Family Medicine 06/02/24 06/07/24 documented as of this encounter
--- OUTSIDE RECORDS SUMMARY | 2024-12-08 08:43 | XMS_ITS | Clinical Summary ---
Author Organization [facility] Address [address] [place] [address] Care Team Providers Care Tiltrotor Crew Chief Name Role Phone Rufus House MD Primary Care Provider [phone] Allergies Active Allergy Reactions Criticality Noted Date Comments Amoxicillin Other 01/22/2023 Azithromycin Unknown High 01/22/2023 Other Reaction(s): tongue swelling Sulfa (Sulfonamide Antibiotics) 01/24/2022 Sulfamethoxazole-Trimethopri m Unknown 01/22/2023 Other Reaction(s): Fogginess Medications ALPRAZolam (Xanax) 0.25 mg tablet alprazolam 0.25 mg tablet PRN 03/05/20 22 Active aspirin 81 mg EC tablet in the morning. Acti ve atorvastatin (Lipitor) 40 mg tablet atorvastatin 40 mg tablet TAKE 1 TABLET BY MOUTH EVERY DAY FOR 90 DAYS Active lisinopril 20 mg tablet lisinopril 20 mg tablet TAKE 1 TABLET BY MOUTH EVERY DAY Active nitroglycerin (Nitrostat) 0.4 mg SL tablet Nitrostat 0.4 mg sublingual tablet Active isosorbide mononitrate ER (Imdur) 30 mg 24 hr tablet isosorbide mononitrate ER 30 mg tablet,extended release 24 hr Active budesonide-glyco pyr-formoterol (Breztri Aerosphere) 160-9-4.8 mcg/actuation HFA aerosol inhaler every 12 (twelve) hours. 08/07/19 22 Active amLODIPine (Norvasc) 5 mg tabletIndication s:Primary hypertension Take 1 tablet (5 mg) by mouth in the morning. 90 tablet 3 11/30/19 25 026 Active metoprolol succinate XL (Toprol-XL) 25 mg 24 hr tabletIndication s:Coronary artery disease involving [place] coronary artery of [place] heart without angina pectoris,Primary hypertension Take 3 tablets (75 mg) by mouth in the morning. Do not crush or chew. 270 tablet 3 11/30/19 25 026 Active dilTIAZem (Cardizem) 60 mg immediate release tablet diltiazem 60 mg tablet 025 Discontin ued(Med List Cleanup) metoprolol succinate XL (Toprol-XL) 25 mg 24 hr tabletIndication s:Essential (primary) hypertension TAKE 1 TABLET BY MOUTH EVERY DAY 90 tablet 3 11/05/19 23 025 Discontin ued(Dose adjustmen t) Active Problems Problem Noted Date Diagnosed Date Pulmonary nodules 03/04/2024 Morbid (severe) obesity due to excess calories 0 12/15/2023 Sialolithiasis 01/22/2023 Vitamin D deficiency 01/22/2023 Adjustment disorder with anxiety 10/21/2022 Body mass index (BMI) 36.0-36.9, adult Chest pain 03/25/2022 Chronic obstructive pulmonary disease 03/25/2022 Coronary arteriosclerosis 03/25/2022 Electrocardiogram abnormal 03/25/2022 Carotid artery stenosis 08/03/2021 Pure hypercholesterolemia 11/06/2020 Skin sensation disturbance 11/06/2020 Tarsal tunnel syndrome 11/06/2020 Asthmatic bronchitis 01/18/2020 Seasonal allergic rhinitis 01/18/2020 Sialoadenitis 12/30/2018 Smoker 12/17/2018 Stage 3a chronic kidney disease 04/27/2018 Constipation 07/15/2017 Anxiety 04/07/2017 Hypertensive disorder 08/22/2016 Encounters Date Type Department Care Team Description 11/29/2024 3:15 PM EDT Office Visit [facility] [address] [place] [address] Phuc Gee MD Coronary artery disease involving [place] coronary artery of [place] heart without angina pectoris (Primary Dx); Primary hypertension; Dizziness from Last 3 Months Family History Medical History Relation Name Comments Coronary artery disease Father Relation Name Status Comments Father Mother Social History Tobacco Use Types Packs/Day Years [...] Heterosexual or Straight 09/2024 9:20 AM EDT Last Filed Vital Signs Vital Sign Reading [...] Mass Index 34.18 11/29/2024 3:33 PM EDT Plan of Treatment Health Maintenance Due Date Last Done Comments CT Colonography 1955 FIT-DNA 1955 FIT 1955 FOBT 1955 Medicare Annual Wellness (AWV) 1955 Sigmoidoscopy 1955 Depression Screening 1969 Pneumococcal Vaccine: 50+ Ye ars (1 of 2 - PCV) 1976 Adult Tetanus 1979 Zoster Vaccines (1 of 2) 2007 Fall Risk Screening 2022 COVID-19 Vaccine ( - 2023-2 5 season) 2023 Influenza Vaccine (#1) 2024 Mammogram 02/06/2025 02/06/2023 Colonoscopy 09/02/2027 09/01/2017 Colorectal Cancer Screening 09/02/2027 HIB Vaccines Aged Out No longer eligi ble based on patient's age to complete this topic HPV Vaccines Aged Out No longer eligi ble based on patient's age to complete this topic IPV Vaccines Aged Out No longer eligi ble based on patient's age to complete this topic Meningococcal B Vaccine Aged Out No l onger eligible based on patient's age to complete this topic Meningococcal Vaccine Aged Out No frannie lisa eligible based on patient's age to complete this topic Rotavirus Vaccines Aged Out No longer eligible based on patient's age to complete this topic Insurance MEDICARE Care Teams Tiltrotor Crew Chief Relationship Specialty Start Date End Date Rufus House MD [address] [place] [address] PCP - General 03/25/22
--- OUTSIDE RECORDS SUMMARY | 2024-12-08 08:43 | XMS_ITS | Encounter Summary ---
Author Organization [facility] Address [address] [facility] [place] [address] Care Team Providers Care Apprentice Technician Name Role Phone Rufus House MD Primary Care Provider [phone] Love Ortega CONCRETE POURER Unavailable [phone] Bertha Hernandez RN Unavailable [phone] Encounter Details Date Type Department Care Team (Late st Contact Info) Description 03/31/2024 Abstract [facility] [address] [facility] 110 [place] [address] Rufus House MD [address] [facility] 110 [place] [address] Social History Tobacco Use Types Packs/Day Years [...] documented as of this encounter Care Teams Apprentice Technician Relationship Specialty Start Date End Date Rufus House MD [address] [facility] 110 [place] [address] PCP - General Family Medicine 08/27/22 Love Ortega NP 112 [facility] 110 [place] [address] PCP - ACO Reach 05/28/24 Bertha Hernandez, RN [address] [facility] 230 [place] [address] Registered Nurse Family Medicine 06/02/24 06/07/24 documented as of this encounter
--- OUTSIDE RECORDS SUMMARY | 2024-12-08 08:43 | XMS_ITS | Clinical Summary ---
Author Organization [facility] Address [address] [place] [address] Care Team Providers Care Actuarial Director Name Role Phone Rufus House MD Primary Care Provider [phone] Love Ortega WASHER CARCASS Unavailable [phone] Allergies Active Allergy Reactions Criticality Noted Date Comments Amoxicillin Other 01/22/2023 Azithromycin High 01/22/2023 Other Reaction(s): tongue swelling Erythromycin 01/22/2023 Other Reaction(s): vomiting Sulfamethoxazole-Trimethopri m 01/22/2023 Other Reaction(s): Fogginess Medications aspirin (Aspir-Low) 81 MG EC tablet 1 (one) time each day at the same time. Active albuterol HFA (ProAir HFA) 90 mcg/act inhalerIndications:Finisher Polisher portillo obstructive pulmonary disease, unspecified COPD type (HCC) Inhale 2 puffs every 6 (six) hours if needed for wheezing. 18 g 11 023 Active lisinopril 20 MG tabletIndications:Essen tial hypertension TAKE 1 TABLET BY MOUTH EVERY DAY IN THE MORNING 100 tablet 3 025 Active atorvastatin (Lipitor) 40 MG tabletIndications:Pure hypercholesterolemia TAKE 1 TABLET BY MOUTH EVERY DAY 100 tablet 3 025 Active ALPRAZolam (Xanax) 0.25 MG tabletIndications:Adjus tment disorder with anxiety Take 1 tablet (0.25 mg) by mouth every 12 (twelve) hours 60 tablet 025 Active metoprolol succinate XL (Toprol-XL) 50 MG 24 hr tabletIndications:Essen tial hypertension TAKE 1 TABLET (50 MG) BY MOUTH DAILY 90 tablet 1 06/20/2 025 Active metoprolol succinate XL (Toprol-XL) 25 MG 24 hr tabletIndications:Essen tial (primary) hypertension TAKE 1 TABLET (25 MG) BY MOUTH DAILY DO NOT CRUSH OR CHEW TAKE WITH 50 MG TAB 100 tablet 3 025 Active metoprolol succinate XL (Toprol-XL) 25 MG 24 hr tabletIndications:Essen tial (primary) hypertension Take 1 tablet (25 mg) by mouth Daily Do not crush or chew. 30 tablet 025 2024 Discontinued Active Problems Problem Noted Date Diagnosed Date Pulmonary nodules 03/04/2024 BMI 35.0-35.9,adult 12/15/2023 Morbid (severe) obesity due to excess calories 0 12/15/2023 Asthmatic bronchitis 01/22/2023 Class 2 obesity 01/22/2023 Constipation 01/22/2023 Disorder of salivary gland 01/22/2023 Sialolithiasis 01/22/2023 Skin sensation disturbance 01/22/2023 Tarsal tunnel syndrome 01/22/2023 Vitamin D deficiency 01/22/2023 Chronic obstructive pulmonary disease, unspecifi ed 10/30/2022 Essential (primary) hypertension 10/30/2022 Assessment & Plan (03/30/2024 3:12 PM EST): Our specific goals, for your hypertension, is to keep your blood pressure less than 140/90, and the importance of weight control. We made recommendations on how to control your blood pressure, and minimize your risk of these copmplications. We also discussed your current barriers to a healthy living and importance of healthy diet and exercise. Prior to your visit today we have reviewed your chart and formed a plan to assist with providing you the best possible care. We reviewed the possible complications of hypertension including, stroke, heart failure and kidney impairment. In addition, we discussed your medications, the importance of taking them as prescribed. DASH diet handouts Pure hypercholesterolemia 10/30/2022 Seasonal allergic rhinitis 10/30/2022 Situational anxiety 10/30/2022 Smoker 10/30/2022 Assessment & Plan (03/30/2024 3:20 PM EST): Discussed smoking cessation with the patient. Encouraged patient to try to cut back gradually and soon quit smoking. Discussed ways to quit smoking including gum, patches, medication, and gradually reducing the number of cigarettes smoked daily. Discussed potential health risks of mcc smoking. Patient voiced understanding. Benefits of cessation, both health and financial, were reviewed. Stage 3a chronic kidney disease 10/30/2022 Adjustment disorder with anxiety 10/21/2022 Chest pain 03/25/2022 Coronary arteriosclerosis 03/25/2022 Electrocardiogram abnormal 03/25/2022 Carotid artery stenosis 08/03/2021 Encounters Date Type Department Care Team Description 12/03/2024 Refill [facility] [address] [place] [address] [place] [address] Love Ortega NP Essential (primary) hypertension 11/11/2024 2:00 PM EDT Office Visit [facility] [address] [place] [address] [place] [address] Love Ortega NP Essential (primary) hypertension (Primary Dx) 11/11/2024 Bamboo flowsheet [facility] [address] [place] [address] [place] [address] Love Ortega NP 11/11/2024 Travel 10/08/2024 Refill [facility] [address] [place] [address] [place] [address] Rufus House MD Essential hypertension from Last 3 Months Family History Medical History Relation Name Comments Heart disease Father Diabetes Mother Hypertension Mother Relation Name Status Comments Father Mother Social History Tobacco Use Types Packs/Day Years Used Date Smoking Tobacco: Every Day Cigarettes Smokeless Tobacco: Never Tobacco Cessation:Ready to Q uit: Not Asked; Counseling Given: Yes Alcohol Use Standard Drinks/Week Comments Not Currently 0 (1 standard drink = 0.6 oz pure alcohol) caffeine intajke: 2-3 cups per day PHQ-2 Answer Date Recorded Patient Health Questionnaire-2 Score 0 11/11/2024 Comments Unknown Sex and Gender Information Value Date Recorded Sex Assigned at Not on file Legal Sex Female 7:47 PM EDT Gender Identity Not on file Sexual Orientation Not on file Last Filed Vital Signs Vital Sign Reading Time Taken Comments Blood Pressure 172/96 11/11/2024 2:08 PM EDT Pulse 62 11/11/2024 2:08 PM EDT Temperature 36.8 C (98.3 F) 08/26/2024 8:07 AM EDT Respiratory Rate 16 11/11/2024 2:08 PM EDT Oxygen Saturation 97% 11/11/2024 2:08 PM EDT Inhaled Oxygen Concentration - - Weight 80.3 kg (177 lb) 11/11/2024 2:08 PM EDT Height 152.4 cm (5') 11/11/2024 2:08 PM EDT Body Mass Index 34.57 11/11/2024 2:08 PM EDT Plan of Treatment Health Maintenance Due Date Last Done Comments CT Colonography 1957 FIT-DNA 1957 FIT 1957 FOBT 1957 Sigmoidoscopy 1955 Medicare Annual Wellness (AWV) 03/30/2025 03/30/2024, 01/23/2023 Mammogram 08/26/2025 02/06/2023, 02/06/2023, 02/06/2023 Postponed from 02/07/2024 (Patient Refused) Colonoscopy 09/02/2027 09/01/2017 Colorectal Cancer Screening 09/02/2027 Influenza Vaccine Discontinued Pneumococcal Vaccine: 65+ Years Discontinued Procedures Procedure Name Priority Date/Time Associated Diagnosis Comments BI MAMMOGRAM SCREENING BILATERAL Routine 02/06/2023 Encounter for screening mammogram for malignant neoplasm of breast COLONOSCOPY Routine 09/01/2017 12:00 PM EDT from Last 3 Months or Most Recently Relevant to Health Maintenance Results * Bilateral screening mammogram (02/06/2023) 02/06/2023 Shannon [facility] - 02/06/2023 12:05 PM EDT normal us Love Ortega WASHER CARCASS IMG BI PROCEDURES Final Resu lt [facility] [address] [place] [address], * Colonoscopy (09/01/2017 12:00 PM EDT) Anatomical Region Laterality Modality Endoscopy 09/01/2017 12:0 0 PM EDT Narrative 09/01/2017 12:00 PM EDT PERFORMED AT [facility] LOCATION:[id number] normal Procedure Note CONVERSION, GENERIC - 09/04/2022 PERFORMED AT [facility] LOCATION:[id number] normal Rufus House MD ENDOSCOPY PROCEDURE ORDERABLES F inal Result from Last 3 Months or Most Recently Relevant to Health Maintenance Insurance MEDICARE [facility] [place] [address] Care Teams Actuarial Director Relationship Specialty Start Date End Date Rufus House MD [address] [facility] 110 [place] [address] PCP - General Family Medicine 08/27/22 Love Ortega NP [address] [place] [address] [place] [address] PCP - ACO Reach 05/28/24
--- OUTSIDE RECORDS SUMMARY | 2024-12-08 08:43 | XMS_ITS | Encounter Summary ---
Author Organization [facility] Address [address] [place] [address] Care Team Providers Care Sign Hanger Supervisor Name Role Phone Rufus Tejeda MD Primary Care Provider [phone] Mallory Nelson NP Unavailable [phone] Bertha Hernandez RN Unavailable [phone] Encounter Details Date Type Department Care Team (Late st Contact Info) Description 02/06/2023 Clinisync Result Encounter [facility] External Department Unsolicited Mallory Nelson, GIANFRANCO [address] [facility] 110 [place] [address] Social History Tobacco Use Types Packs/Day Years [...] Procedure Name Priority Date/Time Associated Diagnosis Comments MM TOMOSYNTHESIS SCREENING BI 02/06/2023 11:02 AM EDT documented in this encounter Results * MM TOMOSYNTHESIS SCREENING BI (02/06/2023 11:02 AM EDT) Anatomical Region Laterality Modality Other 02/06/2023 11:0 2 AM EDT Narrative 02/06/2023 11:02 AM EDT [facility] [id number] Mammography Report Signed Patient: STEPHANIE JUÁREZ MR#: [id number] : 1955 Acct:[id number] Age/Sex: 67 / F ADM Date: 02/06/23 Loc: CT Attending Dr: MALLORY NELSON Ordering Physician: MALLORY NELSON Results: Date of Service: 02/06/23 Follow Up: Procedure(s): MM tomosynthesis screening BI Accession Number(s): [id number] cc: RUFUS TEJEDA ; MALLORY NELSON Patient: STEPHANIE JUÁREZ Exam Date: 02/06/2023 : 1955 Gender:F Ordering : MRS. MALLORY NELSON COPING MACHINE OPERATOR-C Admission #: [id number] Family : DR RUFUS TEJEDA M.D. Order #: [id number] CLICK HERE TO VIEW EXAM RADIOLOGY REPORT PROCEDURE: MM TOMOSYNTHESIS SCREENING BI COMPARISON: None. INDICATIONS: Screening Calculator Name NCI Breast Cancer Risk Assessment Tool 5 Year Breast Cancer Risk 1.50% Lifetime Breast Cancer Risk 5.60% Personal Breast Cancer No Personal Ovarian Cancer No Treatments None Family Cancers None LOCATION: [facility] BREAST COMPOSITION: Heterogeneously dense,which may obscure small masses. FINDINGS: DIAGNOSTIC CATEGORY 2--BENIGN FINDING: Scattered benign-appearing nodules are present. Scattered benign-appearing calcifications are present. Scattered benign-appearing lymph nodes are present. RIGHT BREAST: No significant suspicious finding. LEFT BREAST: No significant suspicious finding. RECOMMENDATIONS: ROUTINE MAMMOGRAM AND CLINICAL EVALUATION IN 12 MONTHS. PLEASE NOTE: A NORMAL MAMMOGRAM DOES NOT EXCLUDE THE POSSIBILITY OF BREAST CANCER. A CLINICALLY SUSPICIOUS PALPABLE LUMP SHOULD BE BIOPSIED. Dictated by: Jose Roberto Ruffin MD on 02/06/2023 at 11:00 Approved by: Jose Roberto Ruffin MD on 02/06/2023 at 11:02 Dictated By: Jose Roberto Ruffin M.D. Signed By: 02/06/23 1103 DD/ 110 TD/TT: Director Of Construction: Procedure Note Radiology, Radiologist, - 02/06/2023 [facility] [id number] Mammography Report Signed Patient: STEPHANIE JUÁREZ AMR#: [id number] : 1955cct:[id number] Age/Sex: 67 / FADM Date: 02/06/23 Loc: CT Attending Dr: MALLORY NELSON Ordering Physician: Janelle NELSONults: Date of Service: 02/06/23Follow Up: Procedure(s): MM tomosynthesis screening BI Accession Number(s): [id number] cc: RUFUS TEJEDA ; MALLORY NELSON Patient: STEPHANIE JUÁREZ Exam Date: 02/06/2023 : 1955 Gender:F Ordering : MRS. TEJADA OMAR COPING MACHINE OPERATOR-C Admission #: [id number] Family : DR RUFUS TEJEDA M.D. Order #: [id number] CLICK HERE TO VIEW EXAM RADIOLOGY REPORT PROCEDURE: MM TOMOSYNTHESIS SCREENING BI COMPARISON: None. INDICATIONS: Screening Calculator Name NCI Breast Cancer Risk Assessment Tool 5 Year Breast Cancer Risk 1.50% Lifetime Breast Cancer Risk 5.60% Personal Breast Cancer No Personal Ovarian Cancer No Treatments None Family Cancers None LOCATION: [facility] BREAST COMPOSITION: Heterogeneously dense,which may obscure smallmasses. FINDINGS: DIAGNOSTIC CATEGORY 2--BENIGN FINDING: Scattered benign-appearing nodules are present. Scatteredbenign-appearing calcifications are present. Scattered benign-appearing lymph nodes are present. RIGHT BREAST: No significant suspicious finding. LEFT BREAST: No significant suspicious finding. RECOMMENDATIONS: ROUTINE MAMMOGRAM AND CLINICAL EVALUATION IN 12 MONTHS. PLEASE NOTE: A NORMAL MAMMOGRAM DOES NOT EXCLUDE THE POSSIBILITY OFBREAST CANCER. A CLINICALLY SUSPICIOUS PALPABLE LUMP SHOULD BE BIOPSIED. Dictated by: Jose Roberto Ruffin MD on 02/06/2023 at 11:00 Approved by: Jose Roberto Ruffin MD on 02/06/2023 at 11:02 Dictated By: Jose Roberto Ruffin M.D. Signed By:02/06/23 1103 DD/ 110 TD/TT: Director Of Construction: us Mallory Nelson COPING MACHINE OPERATOR [facility] Final Resu lt documented in this encounter Visit Diagnoses Not on filedocumented in this encounter Additional Health Concerns Assessment Noted Time PHQ-9 Depression Total Score: 0 01/24/20 23 12:00 PM EDT documented as of this encounter Care Teams Sign Hanger Supervisor Relationship Specialty Start Date End Date Rufus Tejeda MD [address] [facility] 110 [place] [address] PCP - General Family Medicine 08/27/22 Mallory Nelson NP [address] [facility] 110 [place] [address] PCP - ACO Reach 05/28/24 Bertha Hernandez, MARIA R [address] [facility] [address] [place] [address] Registered Nurse Family Medicine 06/02/24 06/07/24 documented as of this encounter
--- OUTSIDE RECORDS SUMMARY | 2024-12-08 08:43 | XMS_ITS | Encounter Summary ---
Author Organization [facility] Address [address] [place] [address] Care Team Providers Care Group Leader Wafer Polishing Name Role Phone Rufus House MD Primary Care Provider [phone] Love Ortega PHARMACY CLINICAL SPECIALIST Unavailable [phone] Bertha Hernandez RN Unavailable [phone] Encounter Details Date Type Department Care Team (Late st Contact Info) Description 01/24/2023 Abstract [facility] [address] [facility] 110 [place] [address] Rufus House MD [address] [facility] 110 [place] [address] Social History Tobacco Use Types Packs/Day Years [...] documented as of this encounter Care Teams Group Leader Wafer Polishing Relationship Specialty Start Date End Date Rufus House MD [address] [facility] [address] [place], [place] [address] PCP - General Family Medicine 08/27/22 Love Ortega, PHARMACY CLINICAL SPECIALIST 112 [facility] 110 [place], [place] [address] PCP - ACO Reach 05/28/24 Bertha Hernandez, RN [address] [facility] [address] [place] [address] Registered Nurse Family Medicine 06/02/24 06/07/24 documented as of this encounter
--- OUTSIDE RECORDS SUMMARY | 2024-12-08 08:43 | XMS_ITS | Encounter Summary ---
Author Organization [facility] Address [address] [facility] [place] [address] Care Team Providers Care Blender Snuff Name Role Phone Rufus House MD Primary Care Provider [phone] Love Ortega BREAST WORKER Unavailable [phone] Bertha Hernandez RN Unavailable [phone] Encounter Details Date Type Department Care Team (Late st Contact Info) Description 07/17/2023 Abstract [facility] [address] [facility] 110 [place] [address] Rufus House MD [address] [facility] 110 [place] [address] Social History Tobacco Use Types Packs/Day Years [...] documented as of this encounter Care Teams Blender Snuff Relationship Specialty Start Date End Date Rufus House MD [address] [facility] [address] [place], [place] [id number] PCP - General Family Medicine 08/27/22 Love Ortega, BREAST WORKER 112 [facility] 110 [place], [place] [id number] PCP - ACO Reach 05/28/24 Bertha Hernandez, RN [address] [facility] 230 [place] [address] Registered Nurse Family Medicine 06/02/24 06/07/24 documented as of this encounter
--- OUTSIDE RECORDS SUMMARY | 2024-12-08 08:43 | XMS_ITS | Encounter Summary ---
Author Organization [facility] Address [address] [place] [address] Care Team Providers Care Worm Farm Laborer Name Role Phone Rufus House MD Primary Care Provider [phone] Love Ortega ORTHOPEDIC RN Unavailable Reason for Visit * Reason Comments Med Change Request Encounter Details Date Type Department Care Team (Late st Contact Info) Description 12/03/2024 Refill [facility] [address] [facility] 110 [place] [address] Love Ortega NP [address] [facility] [address] [place] [address] Essential (primary) hypertension Social History Tobacco Use Types Packs/Day Years [...] as of this encounter Visit Diagnoses Diagnosis Essential (primary) hypertension Unspecified essential hypertension documented in this encounter Additional Health Concerns Assessment Noted Time PHQ-9 Depression Total Score: 0 01/24/20 23 12:00 PM EDT documented as of this encounter Care Teams Worm Farm Laborer Relationship Specialty Start Date End Date Rufus House MD [address] [facility] [address] [place] [address] PCP - General Family Medicine 08/27/22 Love Ortega NP [address] [facility] 110 [place] [address] PCP - ACO Reach 05/28/24 documented as of this encounter
--- OUTSIDE RECORDS SUMMARY | 2024-12-08 08:43 | XMS_ITS | Encounter Summary ---
Author Organization [facility] Address [address] [place] [address] Care Team Providers Care Funeral Sales Manager Name Role Phone Rufus House MD Primary Care Provider Love Ortega PATIENT REGISTRATION SUPERVISOR Unavailable [phone] Bertha Hernandez RN Unavailable [phone] Encounter Details Date Type Department Care Team (Late st Contact Info) Description 02/10/2023 Orders Only [facility] [address] [place] [address] [place] [id number] A, Unknown Practice [address] [place], [place] [id number] Social History Tobacco Use Types Packs/Day Years [...] Diagnosis Comments CT LUNG SCREENING LOW DOSE Routine 02/10/2023 9:53 AM EDT documented in this encounter Results * CT lung screening low dose (02/10/2023 9:53 AM EDT) Anatomical Region Laterality Modality Lung Computed Tomogra phy us Unknown Practice A IMG CT PROCEDURES Final Resul t documented in this encounter Visit Diagnoses Not on filedocumented in this encounter Additional Health Concerns Assessment Noted Time PHQ-9 Depression Total Score: 0 01/24/20 23 12:00 PM EDT documented as of this encounter Care Teams Funeral Sales Manager Relationship Specialty Start Date End Date Rufus House MD [address] [facility] [address] [place] [address] PCP - General Family Medicine 08/27/22 Love Ortega NP [address] [facility] 110 [place] [address] PCP - ACO Reach 05/28/24 Bertha Hernandez, MARIA R [address] [facility] [address] [place] [address] Registered Nurse Family Medicine 06/02/24 06/07/24 documented as of this encounter
--- OUTSIDE RECORDS SUMMARY | 2024-12-08 08:43 | XMS_ITS | Encounter Summary ---
Author Organization [facility] Address [address] [place] [address] Care Team Providers Care Computing Consultant Name Role Phone Rufus Tejeda MD Primary Care Provider [phone] Mallory Nelson NP Unavailable [phone] Bertha Hernandez RN Unavailable [phone] Encounter Details Date Type Department Care Team (Late st Contact Info) Description 07/17/2023 Clinisync Result Encounter [facility] External Department Unsolicited Mallory Nelson, GIANFRANCO [address] [facility] [address] [place] [address] Social History Tobacco Use Types Packs/Day Years [...] Name Priority Date/Time Associated Diagnosis Comments CT CHEST WO CON 07/17/2023 11:03 AM EDT documented in this encounter Results * CT CHEST WO CON (07/17/2023 11:03 AM EDT) Anatomical Region Laterality Modality Other 07/17/2023 11:0 3 AM EDT Narrative 07/17/2023 11:05 AM EDT [address] [address] [address] Scan Report Signed Patient: STEPHANIE JUÁREZ MR#: [id number] : 1955 Acct:[id number] Age/Sex: 68 / F ADM Date: 07/17/23 Loc: CT Attending Dr: MALLORY NELSON Ordering Physician: MALLORY NELSON Date of Service: 07/17/23 Procedure(s): CT chest wo con Accession Number(s): [id number] cc: RUFUS TEJEDA [place] [id number] Patient Name: STEPHANIE JUÁREZ MRN: [id number] date: 1955 Sex: F Assigned Patient Location: CT Current Patient Location: CT Accession/Order Number: [id number] Exam Date: 07/17/2023 09:30 Report Date: 07/17/2023 11:03 At the request of: MALLORY NELSON Procedure: CT chest wo con EXAM: CT chest wo con HISTORY: Cigarette Smoker F17.210 follow-up pulmonary nodules COMPARISON: CT chest 02/06/2023. TECHNIQUE: CT imaging obtained through the chest without intravenous contrast. Coronal and axial MIP reformatted images obtained. Dose reduction techniques performed. FINDINGS: Heart size is normal. Mild to moderate coronary calcification No pericardial effusion. Normal thoracic vasculature. No thoracic lymphadenopathy. Central tracheobronchial tree is patent. No pleural effusion or pneumothorax. Scattered small pulmonary nodules are unchanged. A few small nodules, including at the right major fissure on image 58, the right minor fissure on image 51, and a pleural-based nodule at the left lung base on image 58, are most compatible with intrapulmonary lymph nodes, and are unchanged. Bones and soft tissues: No suspicious bone findings. Partially imaged upper abdomen: Limited. CT/CT chest wo con IMPRESSION: Stable pulmonary nodules. Lung-RADS Category 2. Benign findings. Electronically authenticated by: BALJIT ERICKSON Date: 07/17/2023 11:03 Dictated By: Baljit Erickson M.D. Signed By: 07/17/23 1105 DD/ 1103 TD/TT: Armature Tester: Procedure Note Radiology, Radiologist, MD - 07/17/[address] [address] [address] Scan Report Signed Patient: STEPHANIE JUÁREZ [facility]#: [id number] : 1955cct:[id number] Age/Sex: 68 / FADM Date: 07/17/23 Loc: CT Attending Dr: MALLORY NELSON Ordering Physician: MALLORY NELSON Date of Service: 07/17/23 Procedure(s): CT chest wo con Accession Number(s): [id number] cc: RUFUS TEJEDA [place] [id number] Patient Name: STEPHANIE JUÁREZ MRN: [id number] date: 1955 Sex: F Assigned Patient Location: CT Current Patient Location: CT Accession/Order Number: [id number] Exam Date: 07/17/2023 09:30 Report Date: 07/17/2023 11:03 At the request of: MALLORY NELSON Procedure: CT chest wo con EXAM: CT chest wo con HISTORY: Cigarette Smoker F17.210 follow-up pulmonary nodules COMPARISON: CT chest 02/06/2023. TECHNIQUE: CT imaging obtained through the chest without intravenouscontrast. Coronal and axial MIP reformatted images obtained. Dose reductiontechniques performed. FINDINGS: Heart size is normal. Mild to moderate coronary calcification Nopericardial effusion. Normal thoracic vasculature. No thoracic lymphadenopathy.Central tracheobronchial tree is patent. No pleural effusion or pneumothorax. Scattered small pulmonary nodules are unchanged. A few small nodules, including at the right major fissure on image 58, the right minor fissure on image51, and a pleural-based nodule at the left lung base on image 58, are most compatible with intrapulmonary lymph nodes, and are unchanged. Bones and soft tissues: No suspicious bone findings. Partially imaged upper abdomen: Limited. CT/CT chest wo con IMPRESSION: Stable pulmonary nodules. Lung-RADS Category 2. Benignfindings. Electronically authenticated by: BALJIT ERICKSON Date: :03 Dictated By: Baljit Erickson M.D. Signed By:07/17/23 1105 DD/ 1103 TD/TT: Armature Tester: us Mallory Nelson [employer] [facility] [facility] Final Resu lt documented in this encounter Visit Diagnoses Not on filedocumented in this encounter Additional Health Concerns Assessment Noted Time PHQ-9 Depression Total Score: 0 01/24/20 12:00 PM EDT documented as of this encounter Care Teams Computing Consultant Relationship Specialty Start Date End Date Rufus Tejeda MD [address] [facility] [address] [place] [address] PCP - General Family Medicine 08/27/22 Mallory Nelson, GIANFRANCO [address] [facility] [address] [place] [address] PCP - ACO Reach 05/28/24 Bertha Hernandez, MARIA R [address] [facility] [address] [place] [address] Registered Nurse Family Medicine 06/02/24 06/07/24 documented as of this encounter
--- OUTSIDE RECORDS SUMMARY | 2024-12-08 08:43 | XMS_ITS | Encounter Summary ---
Author Organization [facility] Address [address] [place] [address] Care Team Providers Care Dedicated Local Truck Driver Name Role Phone Rufus House MD Primary Care Provider [phone] Love Ortega KETTLE OPERATOR HEAD Unavailable [phone] Bertha Hernandez RN Unavailable [phone] Encounter Details Date Type Department Care Team (Late st Contact Info) Description 07/08/2023 Orders Only [facility] [address] [place] [address] [place] [address] Love Ortega NP [address] [place] [address] [place] [address] Vitamin D deficiency (Primary Dx); Adjustment disorder with anxiety ; Essential hypertension ; Persistent proteinuria; Cigarette smoker Social History Tobacco Use Types Packs/Day Years [...] as of this encounter Visit Diagnoses Diagnosis Vitamin D deficiency- Primary Adjustment disorder with anxiety Adjustment disorder with anxiety Essential hypertension Unspecified essential hypertension Persistent proteinuria Cigarette smoker Tobacco use disorder documented in this encounter Additional Health Concerns Assessment Noted Time PHQ-9 Depression Total Score: 0 01/24/20 23 12:00 PM EDT documented as of this encounter Care Teams Dedicated Local Truck Driver Relationship Specialty Start Date End Date Rufus House MD [address] [facility] [address] [place] [address] PCP - General Family Medicine 08/27/22 Love Ortega, KETTLE OPERATOR HEAD [address] [facility] [address] [place] [address] PCP - ACO Reach 05/28/24 Bertha Hernandez, MARIA R [address] [facility] [address] [place] [address] Registered Nurse Family Medicine 06/02/24 06/07/24 documented as of this encounter
--- OUTSIDE RECORDS SUMMARY | 2024-12-08 08:46 | XMS_ITS | CCD ---
Author Organization [facility] Care Team Providers Care Superintendent [employer] Name Role Phone Christine Correa Admitting Unavailable Christine Correa Attending Unavailable Rufus Tejeda Primary Care Unavailable MOUKARBEL, DR POLK Admitting Unavailable JESSEE, DR ARAUJO Primary Care Unavailable MOUKARBEL, DR POLK Attending Unavailable JESSEE, DR ARAUJO Primary Care Unavailable MOUKARBEL, DR POLK Attending Unavailable MOUKARBEL, DR POLK Consulting Unavailable MOUKARBEL, DR POLK Admitting Unavailable ZIEBER, DR CAM Cunningham Consulting Unavailable JESSEE, DR ARAUJO Primary Care Unavailable MOUKARBEL, DR POLK Attending Unavailable MOUKARBEL, DR POLK Admitting Unavailable MOUKARBEL, DR POLK Consulting Unavailable JESSEE, DR ARAUJO Primary Care Unavailable APOORVA NINO Attending Unavailable APOORVA NINO Admitting Unavailable Arturo Quevedo Unavailable Aaron BLAIR Attending Unavailable Rufus Tejeda MD Primary Care Provider Mallory Ortega NP Unavailable ANN-MARIE WILSON Attending Unavailable MALLORY ORTEGA Attending Unavailable ANN-MARIE WILSON Attending Unavailable RUFUS TEJEDA Attending Unavailable MOUKAFELICITAS HAMILTON Attending Unavailable Allergies Allergy Classification Reported Allergen(s) Allergy Type Date of Onset Reaction(s) Facility (17 sources) Amoxicillin; Translations: [AMOXICILLIN] Drug Allergy 01-23-20 Other [facility] (17 sources) Azithromycin; Translations: [AZITHROMYCIN] Drug Allergy 01-23-20 [facility] (16 sources) Erythromycin Drug Allergy 01-23-20 [facility] (17 sources) Sulfamethoxazole / Trimethoprim; Translations: [SULFAMETHOXAZOLE-TR IMETHOPRIM] Drug Allergy 01-23-20 [facility] (1 source) Sulfonamides (Antibiotic); Translations: [SULFA (SULFONAMIDE ANTIBIOTICS)] Propensity to adverse reactions to drug (disorder) 01-25-20 [facility] Medications Current Medications Medication Drug Class(es) Dates Sig (Normalized) Sig (Original) [id number] 200 actuat albuterol 0.09 mg/actuat metered dose inhaler (16 sources) beta2-Adrenergic Agonist Start: 01-23-2023 take 2 puff(s) by inhalation every six hours for wheezing albuterol HFA (ProAir HFA) 90 mcg/act inhaler Indications: Chronic obstructive pulmonary disease, unspecified COPD type (HCC) Inhale 2 puffs every 6 (six) hours if needed for wheezing. 18 g 11 01/23/2023 Active ALPRAZolam 0.25 mg oral tablet (20 sources) Benzodiazepine Start: 07-08-2023 End: 09-25-2024 take 1 tablet by mouth once ALPRAZolam (Xanax) 0.25 MG tablet Indications: Adjustment disorder with anxiety Take 1 tablet (0.25 mg) by mouth every 12 (twelve) hours 60 tablet 08/26/2024 Active Aspir-81 (1 source) Aspir-81 Active aspirin 81 mg delayed release oral tablet (18 sources) Platelet Aggregation Inhibitor, Nonsteroidal Anti-inflammatory Drug Start: 05-08-2024 Aspirin (Thierry Low Dose Aspirin) 81 mg tablet,delayed release (DR/EC) Active 81 MG PO Daily May 08, 2024 9:40am Start: 09-01-2017 End: 05-08-2024 take 2 tablets by mouth once daily Aspirin (Thierry Low Dose Aspirin) 81 mg Tablet,Delayed Release (Dr/Ec) Discontinued 2 TAB PO Daily August 31, 2017 11:00pm May 08, 2024 9:40am atorvastatin 40 mg oral tablet (18 sources) HMG-CoA Reductase Inhibitor Start: 07-19-2024 take 1 tablet by mouth once daily atorvastatin (Lipitor) 40 MG tablet Indications: Pure hypercholesterolemia TAKE 1 TABLET BY MOUTH EVERY DAY 100 tablet 3 07/19/2024 Active Start: 05-08-2024 take 1 tablet by mehrdad th once daily Atorvastatin 40 mg tablet Active 40 MG PO Daily May 08, 2024 12:00am Start: 11-03-2023 take 1 tablet by mehrdad th once daily atorvastatin (Lipitor) 40 MG tablet Indications: Pure hypercholesterolemia (CMS/HCC) TAKE 1 TABLET BY MOUTH EVERY DAY FOR 100 DAYS 90 tablet 11/03/2023 Active take 1 tablet by mehrdad th every twenty-four hours Atorvastatin Calcium 40 MG 1 tablet Orally Once a day for 90 Days Active benzonatate 200 mg oral capsule (1 source) Non-narcotic Antitussive Start: 12-15-2023 End: 12-22-2023 take 1 capsule by mouth three times daily as needed for cough benzonatate (Tessalon) 200 MG capsule Indications: Moderate persistent asthmatic bronchitis with acute exacerbation (CMS/HCC) Take 1 capsule (200 mg) by mouth 3 (three) times a day as needed for cough for up to 7 days Do not crush or chew. 21 capsule 12/15/2023 12/22/2023 Active codeine phosphate 2 mg/ml / guaiFENesin 20 mg/ml oral solution (5 sources) Opioid Agonist Start: 08-26-2024 End: 09-02-2024 take 10 mL by mouth every six hours for cough guaiFENesin-codein e (Robitussin-AC) 100-10 MG/5ML syrup Indications: COPD exacerbation (CMS/HCC) Take 10 mL by mouth every 6 (six) hours if needed for cough for up to 7 days 280 mL 08/26/2024 09/02/2024 Active Start: 12-15-2023 End: 12-22-2023 take 10 mL by mouth every six hours for cough guaiFENesin-codeine (Robitussin-AC) 100-10 MG/5ML syrup Indications: Moderate persistent asthmatic bronchitis with acute exacerbation (CMS/HCC) Take 10 mL by mouth every 6 (six) hours if needed for cough for up to 7 days 280 mL 12/15/2023 12/15/2023 Discontinued (Cost of medication) doxycycline hyclate 100 mg oral capsule (6 sources) Tetracycline-class Drug Start: 08-26-2024 End: 09-02-2024 doxycycline (Vibramycin) 100 MG capsule Indications: COPD exacerbation (CMS/HCC) Take 1 capsule (100 mg) by mouth in the morning and 1 capsule (100 mg) before bedtime. Do all this for 7 days. Take with at least 8 ounces (large glass) of water, do not lie down for 30 minutes after. 14 capsule 08/26/2024 09/02/2024 Active Start: 05-08-2024 take 1 capsule by mo [facility] twice daily Doxycycline Hyclate 100 mg capsule Active 100 MG PO Twice daily 20 May 08, 2024 12:00am Start: 12-15-2023 End: 12-22-2023 doxycycline (Vibramycin) 100 MG capsule Indications: Moderate persistent asthmatic bronchitis with acute exacerbation (CMS/HCC) Take 1 capsule (100 mg) by mouth in the morning and 1 capsule (100 mg) before bedtime. Do all this for 7 days. Take with at least 8 ounces (large glass) of water, do not lie down for 30 minutes after. 14 capsule 12/15/2023 12/22/2023 Active lisinopril 20 mg oral tablet (19 sources) Angiotensin Converting Enzyme Inhibitor Start: 04-22-2024 take 1 tablet by mouth once daily in the morning lisinopril 20 MG tablet Indications: Essential hypertension TAKE 1 TABLET BY MOUTH EVERY DAY IN THE MORNING 100 tablet 3 04/22/2024 Active Start: 11-03-2023 take 1 tablet by mehrdad th once daily in the morning lisinopril 20 MG tablet Indications: Essential hypertension (CMS/HCC) TAKE 1 TABLET BY MOUTH EVERY DAY IN THE MORNING 90 tablet 11/03/2023 Active Start: 08-29-2017 End: 05-08-2024 take 1 tablet by mouth once daily Lisinopril 10 mg Tablet Discontinued 10 MG PO Daily August 28, 2017 11:00pm May 08, 2024 9:39am take 1 tablet by mehrdad th every twenty-four hours Lisinopril 20 MG 1 tablet Orally Once a day Active 24 hr metoprolol succinate 25 mg extended release oral tablet (20 sources) beta-Adrenergic Sandra Start: 11-11-2024 End: 12-11-2024 take 1 tablet by mouth once daily metoprolol succinate XL (Toprol-XL) 25 MG 24 hr tablet Indications: Essential (primary) hypertension Take 1 tablet (25 mg) by mouth Daily Do not crush or chew. 30 tablet 11/11/2024 12/11/2024 Active Start: 10-08-2024 take 1 tablet by mehrdad th once daily metoprolol succinate XL (Toprol-XL) 50 MG 24 hr tablet Indications: Essential hypertension TAKE 1 TABLET (50 MG) BY MOUTH DAILY 90 tablet 1 10/08/2024 Active Start: 05-08-2024 take 1 tablet by mehrdad th every twenty-four hours Metoprolol Succinate 50 mg tablet extended release 24 hr Active MG PO May 08, 2024 12:00am Start: 04-22-2024 End: 08-26-2024 take 1 tablet by mouth once daily metoprolol succinate XL (Toprol-XL) 25 MG 24 hr tablet Indications: Essential hypertension (CMS/HCC) TAKE 1 TABLET BY MOUTH EVERY DAY 100 tablet 3 04/22/2024 08/26/2024 Discontinued (Other) Start: 03-30-2024 End: 04-29-2024 take 1 tablet by mouth once daily, then take 1 tablet by mouth once daily metoprolol succinate XL (Toprol-XL) 50 MG 24 hr tablet Indications: Essential hypertension (CMS/HCC) Take 1 tablet (50 mg) by mouth Daily TAKE 1 TABLET BY MOUTH EVERY DAY 30 tablet 3 03/30/2024 Active Start: 11-03-2023 End: 03-30-2024 take 1 tablet by mouth once daily metoprolol succinate XL (Toprol-XL) 25 MG 24 hr tablet Indications: Essential hypertension (CMS/HCC) TAKE 1 TABLET BY MOUTH EVERY DAY 90 tablet 11/03/2023 03/30/2024 Discontinued (Reorder) Start: 08-29-2017 End: 05-08-2024 take 0.5 tablet by mouth once daily Metoprolol Tartrate 25 mg Tablet Discontinued 0.5 TAB PO Daily August 28, 2017 11:00pm May 08, 2024 9:39am take 1 tablet by mehrdad th every twenty-four hours Metoprolol Succinate ER 25 MG 1 tablet Orally Once a day Active predniSONE 20 mg oral tablet (1 source) Start: 05-08-2024 take 2 tablets by mouth once daily Prednisone 20 mg tablet Active 20 MG PO .COMPLEX May 08, 2024 12:00am Take 2 tabs po daily x 5 days Completed/Discontinued Medications Medication Drug Class(es) Dates Sig (Normalized) Sig (Original) nitrofurantoin, macrocrystals 25 mg / nitrofurantoin, monohydrate 75 mg oral capsule (3 sources) Nitrofuran Antibacterial Start: 03-16-2024 End: 03-30-2024 take 1 capsule by mouth in the morning nitrofurantoin, macrocrystal-monoh ydrate, (Macrobid) 100 MG capsule Indications: Acute cystitis without hematuria Take 1 capsule (100 mg) by mouth in the morning and 1 capsule (100 mg) before bedtime. Do all this for 7 days. 14 capsule 03/16/2024 03/30/2024 Discontinued (Other) Problems Active Problems Problem Classification Problem Date Documented Da te Episodic/Chronic Abdominal pain (1 source) Abdominal pain; Translations: [Unspecified abdominal pain] Episodic Adjustment disorders (20 sources) Adjustment disorder with anxious mood; Translations: [Adjustment disorder with anxiety] Onset: 10-21-2022 02-20-2024 Chronic Anxiety disorders (16 sources) Anxiety; Translations: [Other specified anxiety disorders] Onset: 10-30-2022 10-30-2022 Chronic Asthma (20 sources) Asthmatic bronchitis; Translations: [Unspecified asthma, uncomplicated] Onset: 01-22-2023 01-22-2023 Chronic Chronic kidney disease (17 sources) Chronic kidney disease stage 3A ; Translations: [Chronic kidney disease, stage 3a] Onset: 10-30-2022 10-30-2022 Chronic Chronic obstructive pulmonary disease and bronchiectasis (20 sources) Chronic obstructive lung disease; Translations: [Chronic obstructive pulmonary disease, unspecified] Onset: 10-30-2022 12-15-2023 Chronic Conditions associated with dizziness or vertigo (2 sources) Dizziness and giddiness; Translations: [Dizziness and giddiness] Onset: 11-29-2024 Episodic Coronary atherosclerosis and other heart disease (17 sources) Coronary arteriosclerosis; Translations: [Atherosclerotic heart disease of [place] coronary artery without angina pectoris] Onset: 03-25-2022 12-15-2023 Chronic Diabetes mellitus without complication (2 sources) Abnormal glucose tolerance test; Translations: [Other abnormal glucose] 03-30-2024 Episodic Disorders of lipid metabolism (20 sources) Pure hypercholesterolemia ; Translations: [Pure hypercholesterolemia , unspecified] Onset: 10-30-2022 10-30-2022 Chronic Essential hypertension (20 sources) Essential hypertension; Translations: [Essential (primary) hypertension] Onset: 11-06-2021 Resolved: 11-06-2021 Chronic Hypertension with complications and secondary hypertension (4 sources) Hypertensive chronic kidney disease with stage 1 through stage 4 chronic kidney disease, or unspecified chronic kidney disease; Translations: [HTN CKD W/STAGE 1-4 CKD/UNS CKD] Onset: 11-11-2020 Chronic Nutritional deficiencies (18 sources) Vitamin D deficiency; Translations: [Vitamin D deficiency, unspecified] Onset: 01-22-2023 01-22-2023 Chronic Occlusion or stenosis of precerebral arteries (15 sources) Carotid artery stenosis; Translations: [Occlusion and stenosis of unspecified carotid artery] Onset: 08-03-2021 12-15-2023 Chronic Other nervous system disorders (16 sources) Tarsal tunnel syndrome; Translations: [Tarsal tunnel syndrome, unspecified lower limb] Onset: 01-22-2023 01-22-2023 Chronic Other nutritional; endocrine; and metabolic disorders (1 source) Obese class I; Translations: [Body mass index (BMI) 33.0-33.9, adult] Chronic Other nutritional; endocrine; and metabolic disorders (16 sources) Obese class II; Translations: [Class 2 obesity] Onset: 01-22-2023 01-22-2023 Chronic Other nutritional; endocrine; and metabolic disorders (19 sources) Body mass index 30+ - obesity; Translations: [Body mass index (BMI) 35.0-35.9, adult] Onset: 12-15-2023 12-15-2023 Chronic Other nutritional; endocrine; and metabolic disorders (19 sources) Obesity caused by energy imbalance; Translations: [Morbid (severe) obesity due to excess calories] Onset: 12-15-2023 12-15-2023 Chronic Other upper respiratory disease (16 sources) Seasonal allergic rhinitis; Translations: [Other seasonal allergic rhinitis] Onset: 10-30-2022 10-30-2022 Chronic Other upper respiratory infections (2 sources) Acute maxillary sinusitis; Translations: [Acute maxillary sinusitis, unspecified] 08-26-2024 Episodic Substance-related disorders (18 sources) Smoker; Translations: [Nicotine dependence, unspecified, uncomplicated] Onset: 10-30-2022 10-30-2022 Chronic Unclassified (1 source) M53.3 - Sacrococcygeal disorders, not elsewhere classified; Translations: [M53.3 - Sacrococcygeal disorders, not elsewhere classified] Onset: 06-22-2018 Urinary tract infections (1 source) Acute cystitis; Translations: [Acute cystitis without hematuria] 03-16-2024 Episodic Past or Other Problems Problem Classification Problem Date Documented Da te Episodic/Chronic Chronic kidney disease (6 sources) Chronic kidney disease; Translations: [CHRONIC KIDNEY DISEASE STAGE 3B] Onset: 1 Resolved: 2 Diseases of mouth; excluding dental (20 sources) Disorder of salivary gland; Translations: [Disease of salivary gland, unspecified] Onset: 3 01-22-2023 Episodic Mood disorders (16 sources) Mood disorders Onset: 3 01-23-2023 Nonspecific chest pain (15 sources) Chest pain; Translations: [Chest pain, unspecified] Onset: 2 12-15-2023 Episodic Other aftercare (1 source) [facility] (current) use of non-steroidal anti-inflammatories (NSAID) Onset: 2 Resolved: 2 Episodic Other gastrointestinal disorders (17 sources) Constipation; Translations: [Constipation, unspecified] Onset: 3 01-22-2023 Episodic Other lower respiratory disease (11 sources) Multiple nodules of lung; Translations: [Other nonspecific abnormal finding of lung field] Onset: 4 03-04-2024 Episodic Other nervous system disorders (16 sources) Skin sensation disturbance; Translations: [Unspecified disturbances of skin sensation] Onset: 3 01-22-2023 Episodic Other screening for suspected conditions (not mental disorders or infectious disease) (19 sources) Electrocardiogram abnormal; Translations: [Abnormal electrocardiogram [ECG] [EKG]] Onset: 2 12-15-2023 Episodic Results Test Name Value Interpretation Reference Range Facility Office Visiton 11-29-2024 Follow-up visit [id number] Antonio Blackwell 1955 F Date Provider Department Center 11/29/2024 FELICITAS SOTO Family History Problem Relation Age of Onset Coronary artery disease Father Family Status - Relation Status Age at Mother Father Level of Service:67198 [place] OFFICE/OUTPATIENT NEW MODERATE MDM 45 MINUTES Normal [facility] CALCITRIOL 1,25 DIHYDROXYVIT DAWN [place] 12-17-2024 VITAMIN D, 1,25 (OH)2, TOTAL 35 pg/mL Normal 18-72 [facility] Comment on above: Performed By: #### 1 230, [id number] #### [facility] [address] [place] [id number] Geometry Teacher: Mary Tao #### [id number] #### [facility] [address], [address] [place] [address] Geometry Teacher: Aditya Gambino MD #### [id number] #### [facility] [place], [place] Geometry Teacher: Aaron Muñoz M.D.,PhD VITAMIN D2, 1,25 (OH)2 <8 Normal [facility] Comment on above: Result Comment: Vitamin D3, 1,25(OH)2 indicates both endogenous production and supplementation. Vitamin D2, 1,25(OH)2 is an indicator of exogenous sources, such as diet or supplementation. Interpretation and therapy are based on measurement of Vitamin D,1,25(OH)2, Total. This test was developed and its analytical performance characteristics have been determined by [employer] [place], [place]. It has not been cleared or approved by the FDA. This assay has been validated pursuant to the CLIA regulations and is used for clinical purposes. Performed By: #### 1 230, 6399 #### [facility] [address] [place] [id number] Geometry Teacher: Mary Tao #### [id number] #### [facility] [address], [address] [place] [address] Geometry Teacher: Aditya Gambino MD #### [id number] #### [facility] [place], [place] Geometry Teacher: Aaron Muñoz M.D.,PhD VITAMIN D3, 1,25 (OH)2 35 pg/mL Normal [facility] Comment on above: Performed By: #### 1 230, 6399 #### [facility] [address] [address] Geometry Teacher: Mary Tao #### [id number] #### [facility] [place] [address] Geometry Teacher: Aditya Gambino MD #### [id number] #### [facility]/[address] [place], [place] Geometry Teacher: Aaron Muñoz M.D.,PhD CBC (INCLUDES DIFF/PLT)on Basophils (Bld) [#/Vol] 0.04 10*3/uL Normal 0-200 [facility] Comment on above: Performed By: #### 1 230, 6399 #### [facility] [address] [place] [address] Geometry Teacher: Mary Tao #### [id number] #### [facility] [address], [address] [place] [address] Geometry Teacher: Aditya Gambino MD #### [id number] #### [facility] [id number] [place] [address] [place], [place] Geometry Teacher: Aaron Muñoz M.D.,PhD Basophils/100 WBC (Bld) 0.6 % Normal [facility] Comment on above: Performed By: #### 1 230, 6399 #### [facility] [address] [place] [address] Geometry Teacher: Mary Tao #### [id number] #### [facility] [address], [address] [place], [place] [id number] Geometry Teacher: Aditya Gambino MD #### [id number] #### [facility] [place], [place] Geometry Teacher: Aaron Muñoz M.D.,PhD Eosinophils (Bld) [#/Vol] 0.37 10*3/uL Normal 15-500 [facility] Comment on above: Performed By: #### 1 0231, 6399 #### [facility] [address] [place] [address] Geometry Teacher: Mary Tao #### [phone] #### [facility] of [address], [address] [place] [address] Geometry Teacher: Aditya Gambino MD #### [id number] #### [facility]/[address] [place], [place] Geometry Teacher: Aaron Muñoz M.D.,PhD Eosinophils/100 WBC (Bld) 5.6 % Normal [facility] Comment on above: Performed By: #### 1 230, 6399 #### [facility] [address] [place] [address] Geometry Teacher: Mary Tao #### [phone] #### [facility] of [address], [address] [place] [address] Geometry Teacher: Aditya Gambino MD #### [id number] #### [facility]/[address] [place], [place] Geometry Teacher: Aaron Muñoz M.D.,PhD Erythrocyte distribution width (RBC) [Ratio] 13.4 % Normal 11.0-15.0 [facility] Comment on above: Performed By: #### 1 230, 6399 #### [facility] [address] [place] [address] Geometry Teacher: Mary Tao #### [id number] #### [facility] of [address], [address] [place], [place] [id number] Geometry Teacher: Aditya Gambino MD #### [id number] #### [facility]/[place] [id number] [facility] [place], [place] Geometry Teacher: Aaron Muñoz M.D.,PhD Hematocrit (Bld) [Volume fraction] 45.1 % High 35.0-45.0 [facility] Comment on above: Performed By: #### 1 023, 6399 #### [facility] [address] [place], [place] [id number] Geometry Teacher: Mary Tao #### [id number] #### [facility] [place] [address], [address] [place] [address] Geometry Teacher: Aditya Gambino MD #### [id number] #### [facility]/[address] [place], [place] Geometry Teacher: Aaron Muñoz M.D.,PhD Hemoglobin (Bld) [Mass/Vol] 15.0 g/dL Normal 11.7-15.5 [facility] Comment on above: Performed By: #### 1 230, 6399 #### [facility] [address] Geometry Teacher: Mary Tao #### [phone] #### [facility] of [address], [address] [place], [place] [address] Geometry Teacher: Aditya Gambino MD #### [id number] #### [facility]/[place] [id number] [facility] [place], [place] Geometry Teacher: Aaron Muñoz M.D.,PhD Lymphocytes (Bld) [#/Vol] 2.039 10*3/uL Normal 850-3900 [facility] Comment on above: Performed By: #### 1 230, 6399 #### [facility] [address] [place] [address] Geometry Teacher: Mary Tao #### [phone] #### [facility] [address], [address] [place] [address] Geometry Teacher: Aditya Gambino MD #### [id number] #### [facility]/[place] [id number] [facility] [place], [place] Geometry Teacher: Aaron Muñoz M.D.,PhD Lymphocytes/100 WBC (Bld) 30.9 % Normal [facility] Comment on above: Performed By: #### 1 230, 6399 #### [facility] [address] [place], [place] [id number] Geometry Teacher: Mary Tao #### [id number] #### [facility] [place] [address] [address] , [address] [place] [address] Geometry Teacher: Aditya Gambino MD #### [id number] #### [facility]/[address] [place], [place] Geometry Teacher: Aaron Muñoz M.D.,PhD MCH (RBC) [Entitic mass] 30.2 pg Normal 27.0-33.0 [facility] Comment on above: Performed By: #### 1 230, 63 #### [facility] [address] [place] [address] Geometry Teacher: Mary Tao #### [phone] #### [facility] [address], [address] [place] [address] Geometry Teacher: Aditya Gambino MD #### [id number] #### [facility]/[address] [place], [place] Geometry Teacher: Aaron Muñoz M.D.,PhD MCHC (RBC) [Mass/Vol] 33.3 g/dL Normal 32.0-36.[address] [facility] Comment on above: Result Comment: For adults, a slight decrease in the calculated MCHC value (in the range of 30 to 32 g/dL) is most likely not clinically significant; however, it should be interpreted with caution in correlation with other red cell parameters and the patient's clinical condition. Performed By: #### 1 230, 6399 #### [facility] [address] [place], [place] [id number] Geometry Teacher: Mary Tao #### [phone] #### [facility] [address], [address] [place] [address] Geometry Teacher: Aditya Gambino MD #### [id number] #### [facility]/[address] [place], [place] Geometry Teacher: Aaron Muñoz M.D.,PhD MCV (RBC) [Entitic vol] 90.7 fL Normal 80.0-100.0 [facility] Comment on above: Performed By: #### 1 0231, 6399 #### [facility] [address] [place] [address] Geometry Teacher: Mary Tao #### [phone] #### [facility] [address], [address] [place] [address] Geometry Teacher: Aditya Gambino MD #### [id number] #### [facility]/[place] [id number] [facility] [place], [place] Geometry Teacher: Aaron Muñoz M.D.,PhD Monocytes (Bld) [#/Vol] 0.601 10*3/uL Normal 200-950 [facility] Comment on above: Performed By: #### 1 230, 6399 #### [facility] [address] Geometry Teacher: Mary Tao #### [phone] #### [facility] [address] , [address] [place] [address] Geometry Teacher: Aditya Gambino MD #### [id number] #### [facility]/[address] [place], [place] Geometry Teacher: Aaron Muñoz M.D.,PhD Monocytes/100 WBC (Bld) 9.1 % Normal [facility] Comment on above: Performed By: #### 1 0231, 6399 #### [facility] [address] [place] [address] Geometry Teacher: Mary Tao #### 7600 #### [facility] [place] [address] [address] , [address] [place] [address] Geometry Teacher: Aditya Gambino MD #### [id number] #### [facility]/[address] [place], [place] Geometry Teacher: Aaron Muñoz M.D.,PhD Neutrophils (Bld) [#/Vol] 3.551 10*3/uL Normal 5131-2127 [facility] Comment on above: Performed By: #### 1 230, 6399 #### [facility] [place] [address] Geometry Teacher: Mary Tao #### 7600 #### [facility] [address], [address] [place], [place] [id number] Geometry Teacher: Aditya Gambino MD #### [id number] #### [facility]/[address] [place], [place] Geometry Teacher: Aaron Muñoz M.D.,PhD Neutrophils/100 WBC (Bld) 53.8 % Normal [facility] Comment on above: Performed By: #### 1 230, 6399 #### [facility] [address] [place] [address] Geometry Teacher: Mary Tao #### 7600 #### [facility] [address], [address] [place], [place] [id number] Geometry Teacher: Aditya Gambino MD #### [id number] #### [facility]/[address] [place], [place] Geometry Teacher: Aaron Muñoz M.D.,PhD Platelet mean volume (Bld) [Entitic vol] 11.1 fL Normal 7.5-12.5 [facility] Comment on above: Performed By: #### 1 023, 6399 #### [facility] [address] [place] [address] Geometry Teacher: Mary Tao #### 7600 #### [facility] [place] [address] [address] , [address] [place] [address] Geometry Teacher: Aditya Gambino MD #### [id number] #### [facility]/[address] [place], [place] Geometry Teacher: Aaron Muñoz M.D.,PhD Platelets (Bld) [#/Vol] 168 10*3/uL Normal 140-400 [facility] Comment on above: Performed By: #### 1 0231, 6399 #### [facility] [address] [place] [address] Geometry Teacher: Mary Tao #### 7600 #### [facility] [address], [address] [place] [address] Geometry Teacher: Aditya Gambino MD #### [id number] #### [facility]/[address] [place], [place] Geometry Teacher: Aaron Muñoz M.D.,PhD RBC (d) [#/Vol] 4.97 10*6/uL Normal 3.80-5.10 [facility] Comment on above: Performed By: #### 1 230, 6399 #### [facility] [address] [place] [address] Geometry Teacher: Mary Tao #### 7600 #### [facility] [address], [address] [place] [address] Geometry Teacher: Aditya Gambino MD #### [id number] #### [facility]/[address] [place], [place] Geometry Teacher: Aaron Muñoz M.D.,PhD WBC (Bld) [#/Vol] 6.6 10*3/uL Normal 3.8-10.8 [facility] Comment on above: Performed By: #### 1 0231, 6399 #### [facility] [address] [place] [address] Geometry Teacher: Mary Tao #### 7600 #### [facility] [address], [address] [place] [address] Geometry Teacher: Aditya Gambino MD #### [id number] #### [facility]/[place] [id number] [facility] [place], [place] Geometry Teacher: Aaron Muñoz M.D.,PhD [facility] METABOLIC [facility] 04-06-2024 Albumin [Mass/Vol] 3.9 g/dL Normal 3.6-5.1 [facility] Comment on above: Performed By: #### 1 0231, 6399 #### [facility] [address] [place], [place] [id number] Geometry Teacher: Mary Tao #### 7600 #### [facility] [address], [address] [place] [address] Geometry Teacher: Aditya Gambino MD #### [id number] #### [facility]/[place] [id number] [facility] [place], [place] Geometry Teacher: Aaron Muñoz M.D.,PhD Albumin/Globulin [Mass ratio] 1.8 {ratio} Normal 1.0-2.5 [facility] Comment on above: Performed By: #### 1 0231, 6399 #### [facility] [address] [place] [address] Geometry Teacher: Mary Tao #### 7600 #### [facility] [address], [address] [place] [address] Geometry Teacher: Aditya Gambino MD #### [id number] #### [facility] [place], [place] Geometry Teacher: Aaron Muñoz M.D.,PhD ALP [Catalytic activity/Vol] 65 U/L Normal 37-153 [facility] Comment on above: Performed By: #### 1 023, 6399 #### [facility] [address] [place] [address] Geometry Teacher: Mary Tao #### 7600 #### [facility] of [address], [address] [place] [address] Geometry Teacher: Aditya Gambino MD #### 72101 #### [facility]/[address] [place], [place] Geometry Teacher: Aaron Muñoz M.D.,PhD ALT [Catalytic activity/Vol] 13 U/L Normal 6-29 [facility] Comment on above: Performed By: #### 1 023, 6399 #### [facility] [address] [place] [address] Geometry Teacher: Mary Tao #### 7600 #### [facility] of [address], [address] [place] [address] Geometry Teacher: Aditya Gambino MD #### 80050 #### [facility]/[address] [place], [place] Geometry Teacher: Aaron Muñoz M.D.,PhD AST [Catalytic activity/Vol] 16 U/L Normal 10-35 [facility] Comment on above: Performed By: #### 1 0231, 6399 #### [facility] [address] [place] [address] Geometry Teacher: Mary Tao #### 7600 #### [facility] of [address], [address] [place] [address] Geometry Teacher: Aditya Gambino MD #### [id number] #### [facility] [place], [place] Geometry Teacher: Aaron Muñoz M.D.,PhD Bilirubin [Mass/Vol] 0.6 mg/dL Normal 0.2-1.2 [facility] Comment on above: Performed By: #### 1 023, 6399 #### [facility] [address] [place] [address] Geometry Teacher: Mary Tao #### 7600 #### [facility] [address], [address] [place] [address] Geometry Teacher: Aditya Gambino MD #### [id number] #### [facility]/[address] [place], [place] Geometry Teacher: Aaron Muñoz M.D.,PhD BUN/CREATININE RATIO SEE NOTE: Normal 6-22 [facility] Comment on above: Result Comment: Not Reported: BUN and Creatinine are within reference range. Performed By: #### 1 230, 6332 #### [facility] [address] [place] [address] Geometry Teacher: Mary Tao #### 7600 #### [facility] [address], [address] [place] [address] Geometry Teacher: Aditya Gambino MD #### [id number] #### [facility]/[address] [place], [place] Geometry Teacher: Aaron Muñoz M.D.,PhD Calcium [Mass/Vol] 9.0 mg/dL Normal 8.6-10.4 [facility] Comment on above: Performed By: #### 1 230, 6399 #### [facility] [place] [address] Geometry Teacher: Mary Tao #### 7600 #### [facility] [address], [address] [place], [place] [id number] Geometry Teacher: Aditya Gambino MD #### 15894 #### [facility]/[place] [address]25 [facility] [place], [place] Geometry Teacher: Aaron Muñoz M.D.,PhD Chloride [Moles/Vol] 107 mmol/L Normal 98-110 [facility] Comment on above: Performed By: #### 1 023, 6399 #### [facility] [address] [place] [address] Geometry Teacher: Mary Tao #### 7600 #### [facility] [address], [address] [place] [address] Geometry Teacher: Aditya Gambino MD #### 11724 #### [facility]/[place] [address]25 [facility] [place], [place] Geometry Teacher: Aaron Muñoz M.D.,PhD CO2 [Moles/Vol] 28 mmol/L Normal 20-32 [facility] Comment on above: Performed By: #### 1 0231, 6399 #### [facility] [address] [place] [address] Geometry Teacher: Mary Tao #### 7600 #### [facility] [address], [address] [place], [place] [address] Geometry Teacher: Aditya Gambino MD #### 79290 #### [facility] [place], [place] Geometry Teacher: Aaron Muñoz M.D.,PhD Creatinine [Mass/Vol] 0.86 mg/dL Normal 0.50-1.05 [facility] Comment on above: Performed By: #### 1 0231, 6399 #### [facility] [address] [place] [address] Geometry Teacher: Mary Tao #### 7600 #### [facility] [address], [address] [place] [address] Geometry Teacher: Aditya Gambino MD #### 40352 #### [facility]/[place] [address]25 [facility] [place], [place] Geometry Teacher: Aaron Muñoz M.D.,PhD GFR/1.73 sq M.predicted among non-blacks MDRD (S/P/Bld) [Vol rate/Area] 74 mL/min/{1.73_m2} Normal > OR = 60 [facility] Comment on above: Performed By: #### 1 0231, 6399 #### [facility] [address] [place] [address] Geometry Teacher: Mary Tao #### 7600 #### [facility] [address], [address] [place] [address] Geometry Teacher: Aditya Gambino MD #### 67096 #### [facility]/[address] [place], [place] Geometry Teacher: Aaron Muñoz M.D.,PhD Globulin (S) [Mass/Vol] 2.2 g/dL Normal 1.9-3.7 [facility] Comment on above: Performed By: #### 1 023, 6399 #### [facility] [place] [address] Geometry Teacher: Mary Tao #### 7600 #### [facility] [address], [address] [place], [place] [address] Geometry Teacher: Aditya Gambino MD #### 27751 #### [facility]/[place] [address] [facility] [place] Geometry Teacher: Aaron Muñoz M.D.,PhD Glucose [Mass/Vol] 97 mg/dL Normal 65-99 [facility] Comment on above: Result Comment: Fasting reference interval Performed By: #### 1 230, 6399 #### [facility] [address] [place] [address] Geometry Teacher: Mary Tao #### 7600 #### [facility] [address], [address] [place] [address] Geometry Teacher: Aditya Gambino MD #### 18253 #### [facility]/[place] [address] [facility] [place] Geometry Teacher: Aaron W Toni M.D.,PhD Potassium [Moles/Vol] 4.2 mmol/L Normal 3.5-5.3 [facility] Comment on above: Performed By: #### 1 0231, 6399 #### [facility] [address] [place] [address] Geometry Teacher: Mary Tao #### 7600 #### [facility] [place] [address] [address] , [address] [place] [address] Geometry Teacher: Aditya Gambino MD #### 20617 #### [facility]/[address] [place], [place] Geometry Teacher: Aaron Muñoz M.D.,PhD Protein [Mass/Vol] 6.1 g/dL Normal 6.1-8.1 [facility] Comment on above: Performed By: #### 1 230, 6399 #### [facility] [address] [place] [address] Geometry Teacher: Mary Tao #### 7600 #### [facility] [place] [address] [address] , [address] [place], [place] [address] Geometry Teacher: Aditya Gambino MD #### [id number] #### [facility]/[address] [place], [place] Geometry Teacher: Aaron Muñoz M.D.,PhD Sodium [Moles/Vol] 143 mmol/L Normal 135-146 [facility] Comment on above: Performed By: #### 1 0231, 6399 #### [facility] [address] [place] [address] Geometry Teacher: Mary Tao #### 7600 #### [facility] [place] [address] [address] , [address] [place] [address] Geometry Teacher: Aditya Gambino MD #### 55927 #### [facility]/[place] [id number] [facility] [place], [place] Geometry Teacher: Aaron Muñoz M.D.,PhD Urea nitrogen [Mass/Vol] 16 mg/dL Normal 7-25 [facility] Comment on above: Performed By: #### 1 0231, 6399 #### [facility] Critical [facility]1 [place] [id number] Geometry Teacher: Mary Tao #### 7600 #### [facility] [address], [address] [place] [address] Geometry Teacher: Aditya Gambino MD #### [id number] #### [facility] [address] [facility] [place], [place] Geometry Teacher: Aaron Muñoz M.D.,PhD LIPID PANEL, [address] Cholesterol [Mass/Vol] 114 mg/dL Normal <200 [facility] Comment on above: Order Comment: FASTI NG:YES FASTING: YES Performed By: #### 1 023, 6399 #### [facility] [address] [place] [address] Geometry Teacher: Mary Tao #### 7600 #### [facility] [address] , [address] [place] [address] Geometry Teacher: Aditya Gambino MD #### 11800 #### [facility]/[address] [place], [place] Geometry Teacher: Aaron Muñoz M.D.,PhD Cholesterol in HDL [Mass/Vol] 49 mg/dL Low > OR = 50 [facility] Comment on above: Order Comment: FASTI NG:YES FASTING: YES Performed By: #### 1 0231, 6399 #### [facility] Critical [facility]1 [place] [address] Geometry Teacher: Mary Tao #### 7600 #### [facility] [address], [address] [place] [address] Geometry Teacher: Aditya Gambino MD #### 64300 #### [facility] [address] [facility] [place] Geometry Teacher: Aaron Muñoz M.D.,PhD Cholesterol in LDL [Mass/Vol] 47 mg/dL Normal [employer] Comment on above: Order Comment: FASTI NG:YES FASTING: YES Result Comment: Refe rence range: <100 Desirable range <100 mg/dL for primary prevention; <70 mg/dL for patients with CHD or diabetic patients with > or = 2 CHD risk factors. LDL-C is now calculated using the Flores calculation, which is a validated novel method providing better accuracy than the Friedewald equation in the estimation of LDL-C. Deangelo GONSALVES et al. SARAH. 2013;310(19): 8140-7785 (http://education.Cinema One/faq/XSK300) Performed By: #### 1 0231, 6399 #### [facility] [place] [address] Geometry Teacher: Mary Tao #### 7600 #### [facility] [address], [address] [place] [address] Geometry Teacher: Aditya Gambino MD #### 64921 #### [facility] [place], [place] Geometry Teacher: Aaron Muñoz M.D.,PhD Cholesterol.total/Cho lesterol in HDL [Mass ratio] 2.3 {ratio} Normal <5.0 [facility] Comment on above: Order Comment: FASTI NG:YES FASTING: YES Performed By: #### 1 0231, 6399 #### [facility]1 [place] [address] Geometry Teacher: Mary Tao #### 7600 #### [employer] [address], [address] [place] [address] Geometry Teacher: Aditya Gambino MD #### [id number] #### [facility] [place] Geometry Teacher: Aaron Muñoz M.D.,PhD NON HDL CHOLESTEROL 65 mg/dL (calc) Normal <130 [facility] Comment on above: Order Comment: FASTI NG:YES FASTING: YES Result Comment: For patients with diabetes plus 1 major ASCVD risk factor, treating to a non-HDL-C goal of <100 mg/dL (LDL-C of <70 mg/dL) is considered a therapeutic option. Performed By: #### 1 0231, 6399 #### [facility] [address] [place] [address] Geometry Teacher: Mary Tao #### 7600 #### [facility] [address], [address] [place] [address] Geometry Teacher: Aditya Gambino MD #### 58563 #### [facility]/[address] [place], [place] Geometry Teacher: Aaron Muñoz M.D.,PhD Triglyceride [Mass/Vol] 97 mg/dL Normal <150 [facility] Comment on above: Order Comment: FASTI NG:YES FASTING: YES Performed By: #### 1 230, 6399 #### [facility] [address] [place] [address] Geometry Teacher: Mary Tao #### 7600 #### [facility] [address], [address] [place] [address] Geometry Teacher: Aditya Gambino MD #### 56810 #### [facility]/[address] [place], [place] Geometry Teacher: Aaron Muñoz M.D.,PhD TSHon 04-06-2024 TSH Qn 1.04 m[IU]/L Normal 0.40-4.50 [facility] Comment on above: Performed By: #### 1 0231, 6399 #### [facility] [address] [place] [address] Geometry Teacher: Mary Tao #### 7600 #### [facility] [place] [address] [facility], [address] [place] [address] Geometry Teacher: Aditya Gambino MD #### [id number] #### [facility] [address] [facility] [place] [address] Geometry Teacher: Aaron Muñoz M.D.,PhD US KIDNEYSon 11-13-2020 US KIDNEYS EXAMINATION: US [...] CAM BETANCOURT Date: 2020-11-13 09:11 Normal The [facility] PROF CHEM 8 (BAS METB)on Anion gap [Moles/Vol] 16.3 mmol/L Normal Th [facility] Comment on above: Performed By: #### B MP #### [facility] Laboratory [address] [place] [id number] Julieta Ann-Marie Calcium [Mass/Vol] 9.5 mg/dL Normal 8.4-10.[address] [facility] Comment on above: Performed By: #### B MP #### [facility] [address] [place] [id number] Juli[place] Ann-Marie Chloride [Moles/Vol] 101 mmol/L Normal 98-107 [facility] Comment on above: Performed By: #### B MP #### [facility] [address] [place] [address] Jul[place] CO2 [Moles/Vol] 26.3 mmol/L Normal 22.0-30.0 [facility] Comment on above: Performed By: #### B MP #### [facility] [address] [place] [id number] Julieta Ann-Marie Creatinine [Mass/Vol] 1.22 mg/dL Critically high 0.52-1.04 [facility] Comment on above: Performed By: #### B MP #### [facility] [address] [place] [id number] Juli[place] Ann-Marie EGFR-AF BERMUDIAN 54 mL/min/1.73m2 Critically low >=60 [facility] Comment on above: Performed By: #### B MP #### [facility] [address] [place] [id number] [place] EGFR-NON AF BERMUDIAN 45 mL/min/1.73m2 Critically low >=60 [facility] Comment on above: Performed By: #### B MP #### [facility] [address] [place] [id number] Juli[place] Ann-Marie Glucose [Mass/Vol] 100 mg/dL Normal 74-[address] [facility] Comment on above: Performed By: #### B MP #### [facility] [address] [place] [id number] Juli[place] Ann-Marie Potassium [Moles/Vol] 4.6 mmol/L Normal 3.4-5.0 [facility] Comment on above: Performed By: #### B MP #### [facility] [address] [place] [address] Julieta Ann-Marie Sodium [Moles/Vol] 139 mmol/L Normal 137-145 [facility] Comment on above: Performed By: #### B MP #### [facility] [address] [place] [address] Julieta Ann-Marie Urea nitrogen [Mass/Vol] 32.0 mg/dL Critically high 7.0-17.0 [facility] Comment on above: Performed By: #### B MP #### [facility] [address] [place] [address] Julieta Ann-Marie Urea nitrogen/Creatinine [Mass ratio] 26.2 mg/mg Normal [facility] Comment on above: Performed By: #### B MP #### [facility] [address] [place] [address] Julieta Ann-Marie PROTEIN RAND URINEon 021 UR PROT <5.0 Normal <=12.0 [facility] Comment on above: Performed By: #### P ROTU #### [facility] [address] [place] [address] Julieta Ann-Marie UA RANDOM W/MICROSCOPICon BACTERIA TRACE Abnormal NONE SEEN [facility] Comment on above: Performed By: #### U AMIC #### [facility] [address] [place] [address] Julieta Ann-Marie Bilirubin Ql (U) Negative Normal NEGATIVE [facility] Comment on above: Performed By: #### U AMIC #### [facility] [address] [place], [place] [phone] Julieta Ann-Marie CAST NONE SEEN Normal NONE SEEN [facility] Comment on above: Performed By: #### U AMIC #### [facility] [address] [place] [address] Julieta Ann-Marie Clarity (U) SL CLOUDY Abnormal CLEAR [facility] Comment on above: Performed By: #### U AMIC #### [facility] [address] [place] [address] Julieta Ann-Marie Color (U) LT. YELLOW Normal YELLOW [facility] Comment on above: Performed By: #### U AMIC #### [facility] [address] [place] [phone] Julieta Ann-Marie Crystals LM Nom (Urine sed) NONE SEEN Normal NONE SEEN [facility] Comment on above: Performed By: #### U AMIC #### [facility] [address] [place] [address] Julieta Ann-Marie Epithelial cells LM Ql (Urine sed) RARE Normal NONE SEEN /RARE [facility] Comment on above: Performed By: #### U AMIC #### [facility] [address] [place] [address] Julieta Ann-Marie Glucose Ql (U) Negative Normal NEGATIVE The [facility] Comment on above: Performed By: #### U AMIC #### [facility] [address] [place] [address] Julieta Ann-Marie Hemoglobin Ql (U) MODERATE Abnormal NEGATIVE The [facility] Comment on above: Performed By: #### U AMIC #### [facility] [address] [place] [address] Julieta Ann-Marie Ketones Ql (U) Negative Normal NEGATIVE The [facility] Comment on above: Performed By: #### U AMIC #### [facility] [address] [place], [place] [id number] Julieta Ann-Marie LEUKOCYTES TRACE Abnormal NEGATIVE [facility] Comment on above: Performed By: #### U AMIC #### [facility] [address] [place] [address] Julieta Ann-Marie MUCOUS NONE SEEN Normal NONE SEEN [facility] Comment on above: Performed By: #### U AMIC #### [facility] [address] [place] [address] Julieta Ann-Marie Nitrite Ql (U) Negative Normal NEGATIVE The [facility] Comment on above: Performed By: #### U AMIC #### [facility] [address] [place] [address] Julieta Ann-Marie pH (U) 5.5 [pH] Normal 5-9 [facility] Comment on above: Performed By: #### U AMIC #### [facility] [address] [place] [id number] Julieta Ann-Marie RBC 0-2 Normal 0-2 [facility] Comment on above: Performed By: #### U AMIC #### [facility] [address] [place], [place] [address] Julieta Jacobsen SPEC GRAVITY 1.010 Normal 1.005-<=1.025 [facility] Comment on above: Performed By: #### U AMIC #### [facility] [address] [place] [phone] Julietaritika Jacobsen UA PROTEIN Negative Normal NEGATIVE/ TRACE The [facility] Comment on above: Performed By: #### U AMIC #### [facility] [address] [place], [place] [address] Julieta Jacobsen Urobilinogen Qn (U) 0.2 {Khang'U}/dL Normal 0.2 - 1. 0 [facility] Comment on above: Performed By: #### U AMIC #### [facility] [address] [place], [place] [address] Julietaritika Jacobsen WBC 0-2 Abnormal NONE SEEN The [facility] Comment on above: Performed By: #### U AMIC #### [facility] [address] [place], [place] [address] Julieta Jacobsen XR hip LT min 2V(w/wo pelvis )*on 06-22-2018 XR hip LT min 2V(w/wo pelvis)* [facility] [place] [address] XRay Report Signed Patient: Antonio Blackwell MR#: [id number] : 1955 Acct:[id number] Age/Sex: 63 / F ADM Date: 06/22/18 Loc: XDUCLY Room: Type: [facility] Attending Dr: Christine Correa NP Ordering Provider: Christine Correa NP Date of Service: 06/22/18 XR/XR wrist RT min 3V*: PAIN AFTER FALL ([id number]) XR/XR hip LT min 2V(w/wo pelvis)*: PAIN AFTER FALL ([id number]) XR/XR sacrum coccyx min 2V: PAIN AFTER [...] Reagan Portillo M.D.06/22/2018 10:49 AM [facility] Transcribed By: [facility] 06/22/18 1049 Dictated By: Reagan Portillo DO 06/22/18 1046 Signed By: 06/22/18 1049 [facility] Vital Signs Date Time Vital Sign Value Performing Clinician Facility 11-11-2024 14:08-0400 Body height 152.4 cm Mallory Ortega NP Work Phone: [facility] 11-11-2024 14:08-0400 Body mass index (BMI) [Ratio] 34.57 kg/m2 Mallory Ortega NP Work Phone: [facility] 11-11-2024 14:08-0400 Body weight 80.29 kg Mallory Ortega NP Work Phone: [facility] 11-11-2024 14:08-0400 Diastolic blood pressure 96 mm[Hg] Mallory Ortega NP Work Phone: [facility] 11-11-2024 14:08-0400 Heart rate 62 /min Mallory Ortega FUR TAILOR Work Phone: [facility] 11-11-2024 14:08-0400 Respiratory rate 16 /min Mallory Ortega NP Work Phone: [facility] 11-11-2024 14:08-0400 SaO2% (BldA) [Mass fraction] 97 % Mallory Ortega FUR TAILOR Work Phone: [facility] 11-11-2024 14:08-0400 Systolic blood pressure 172 mm[Hg] Mallory Ortega FUR TAILOR Work Phone: [facility] 08-26-2024 08:07-0400 Body height 151.4 cm Ann-Marie Hemmer PA Work Phone: [facility] 08-26-2024 08:07-0400 Body mass index (BMI) [Ratio] 35.07 kg/m2 Ann-Marie Hemmer PA Work Phone: [facility] 08-26-2024 08:07-0400 Body temperature 98.29 [degF] Ann-Marie Hemmer PA Work Phone: [facility] 08-26-2024 08:07-0400 Body weight 80.38 kg Ann-Marie Hemmer PA Work Phone: [facility] 08-26-2024 08:07-0400 Diastolic blood pressure 94 mm[Hg] Ann-Marie Hemmer PA Work Phone: [facility] 08-26-2024 08:07-0400 Heart rate 56 /min Ann-Marie Hemmer PA Work Phone: [facility] 08-26-2024 08:07-0400 Respiratory rate 16 /min Ann-Marie Hemmer PA Work Phone: [facility] 08-26-2024 08:07-0400 SaO2% (BldA) [Mass fraction] 98 % Ann-Marie Hemmer PA Work Phone: [facility] 08-26-2024 08:07-0400 Systolic blood pressure 144 mm[Hg] Ann-Marie Hemmer PA Work Phone: [facility] 05-08-2024 09:36-0500 Body height 152.4 cm [facility] 05-08-2024 09:36-0500 Body mass index (BMI) [Ratio] 34.4 kg/m2 [facility] 05-08-2024 09:36-0500 Body temperature 98.3 [degF] [facility] 05-08-2024 09:36-0500 Body weight 80 kg [facility] 05-08-2024 09:36-0500 Diastolic blood pressure 85 mm[Hg] [facility] 05-08-2024 09:36-0500 Heart rate 72 /min [facility] 05-08-2024 09:36-0500 Respiratory rate 18 /min [facility] 05-08-2024 09:36-0500 SaO2% (BldA) [Mass fraction] 94 % [facility] 05-08-2024 09:36-0500 Systolic blood pressure 133 mm[Hg] [facility] 03-30-2024 15:05-0500 Body height 151.4 cm Rufus Tejeda MD Work Phone: [facility] 03-30-2024 15:05-0500 Body mass index (BMI) [Ratio] 35.83 kg/m2 Rufus Tejeda MD Work Phone: [facility] 03-30-2024 15:05-0500 Body weight 82.1 kg Rufus Tejeda MD Work Phone: [facility] 03-30-2024 15:05-0500 Diastolic blood pressure 88 mm[Hg] Rufus Tejeda MD Work Phone: [facility] 03-30-2024 15:05-0500 Heart rate 56 /min Rufus Tejeda MD Work Phone: [facility] 03-30-2024 15:05-0500 SaO2% (BldA) [Mass fraction] 97 % Rufus Tejeda MD Work Phone: [facility] 03-30-2024 15:05-0500 Systolic blood pressure 138 mm[Hg] Rufus Tejeda MD Work Phone: [facility] 12-15-2023 13:35-0400 Body height 151.4 cm Ann-Marie HERNANDEZ Work Phone: [facility] 12-15-2023 13:35-0400 Body mass index (BMI) [Ratio] 35.35 kg/m2 Ann-Marie Hemmer PA Work Phone: [email or web address] [email or web address] 12-15-2023 13:35-0400 Body temperature 99.19 [degF] Ann-Marie Hemmer PA Work Phone: [facility] [email or web address] 12-15-2023 13:35-0400 Body weight 81.01 kg Ann-Marie Hemmer PA Work Phone: [facility] [email or web address] 12-15-2023 13:35-0400 Diastolic blood pressure 78 mm[Hg] Ann-Marie Hemmer PA Work Phone: [facility] [email or web address] 12-15-2023 13:35-0400 Heart rate 57 /min Ann-Marie Hemmer PA Work Phone: [facility] [employer] 12-15-2023 13:35-0400 Respiratory rate 16 /min Ann-Marie Hemmer PA Work Phone: [facility] [email or web address] 12-15-2023 13:35-0400 SaO2% (BldA) [Mass fraction] 94 % Ann-Marie Hemmer PA Work Phone: [facility] [email or web address] 12-15-2023 13:35-0400 Systolic blood pressure 138 mm[Hg] Ann-Marie Hemmer PA Work Phone: [facility] [email or web address] 11-06-2021 11:20-0400 Body height 152.4 cm [email or web address] Other [facility] Other 11-06-2021 11:20-0400 Body mass index (BMI) [Ratio] 35.93 kg/m2 [email or web address] Other [facility] Other 11-06-2021 11:20-0400 Body temperature 97.8 [degF] [email or web address] Other [facility] Other 11-06-2021 11:20-0400 Body weight 83.46 kg [email or web address] Other [facility] Other 11-06-2021 11:20-0400 Diastolic blood pressure 74 mm[Hg] Arturo Quevedo Other [facility] Other 11-06-2021 11:20-0400 Respiratory rate 18 /min Arturo Quevedo Other [facility] Other 11-06-2021 11:20-0400 SaO2% (BldA) [Mass fraction] 97 % Arturo Quevedo Other [facility] Other 11-06-2021 11:20-0400 Systolic blood pressure 125 mm[Hg] Arturo Quevedo Other [facility] Other Encounters Encounter Date Encounter Type Care Provider Facility Start: 11-29-2024 End: 11-29-2024 ambulatory [facility] Start: 11-11-2024 End: 11-11-2024 Bamboo flowsalexis Ortega FUR TAILOR Work Phone: [facility] Start: 11-11-2024 End: 11-11-2024 Bamboo flowsalexis Ortega FUR TAILOR Work Phone: [facility] Start: 11-11-2024 End: 11-11-2024 Office outpatient visit 25 minutes Mallory Ortega FUR TAILOR Work Phone: [facility] Comment on above: Essential (primary) hypertension (Primary Dx) Start: 11-11-2024 End: 11-11-2024 ambulatory MALOLRY ORTEGA Not Available Start: 08-26-2024 End: 08-26-2024 Bamboo flowsheet Ann-Marie Wilson PA Work Phone: [facility] Start: 08-26-2024 End: 08-26-2024 Bamboo flowsalexis Wilson PA Work Phone: [facility] Start: 08-26-2024 End: 08-26-2024 Office outpatient visit 25 minutes Ann-Marie HERNANDEZ Work Phone: [facility] Comment on above: Acute non-recurrent maxillary sinusitis (Primary Dx); Chronic obstructive pulmonary disease, unspecified; Morbid (severe) obesity due to excess calories (CMS/HCC); Pure hypercholesterolemia, unspecified (CMS/HCC); Body mass index (BMI) 35.0-35.9, adult; COPD exacerbation (CMS/HCC); Adjustment disorder with anxiety (CMS/HCC) Start: 08-26-2024 End: 08-26-2024 ambulatory ANN-MARIE WILSON Not Available Start: 08-23-2024 End: 08-24-2024 Refill Nirmala Richardson [facility] Comment on above: Moderate persistent asthmatic bronchitis with acute exacerbation (CMS/HCC) Start: 05-08-2024 End: 05-08-2024 ambulatory [facility] Work Phone: Start: 05-08-2024 End: 05-08-2024 Patient encounter procedure [facility] Work Phone: Start: 03-30-2024 End: 03-30-2024 Assay of hemosiderin, quant Rufus Tejeda MD Work Phone: [facility] Start: 03-30-2024 End: 03-30-2024 Patient encounter procedure Rufus Tejeda MD Work Phone: [facility] Comment on above: Routine general medi eliud examination at health care facility (Primary Dx); Abnormal glucose tolerance test; Benign essential hypertension (CMS/HCC); Vitamin D deficiency; Pure hypercholesterolemia (CMS/HCC); Encounter for annual wellness exam in Medicare patient; Encounter for screening mammogram for malignant neoplasm of breast; Screening for thyroid disorder; Essential (primary) hypertension (CMS/HCC); Essential hypertension (CMS/HCC); Adjustment disorder with anxiety (CMS/HCC); Smoker Start: 03-30-2024 End: 03-30-2024 ambulatory RUFUS TEJEDA Not Available Start: 03-30-2024 End: 03-30-2024 Bamboo flowsheet Rufus Tejeda MD Work Phone: [facility] Start: 03-30-2024 End: 03-30-2024 Bamboo flowsheet Rufus Tejeda MD Work Phone: [facility] Start: 03-15-2024 End: 03-17-2024 Telephone encounter Rufus Tejeda MD Work Phone: [facility] Start: 02-20-2024 End: 02-20-2024 Refill Rufus Tejeda MD Work Phone: [facility] Comment on above: Adjustment disorder with anxiety (CMS/HCC) Start: 12-15-2023 End: 12-15-2023 Bamboo flowsheet Ann-Marie Wilson PA Work Phone: [facility] Start: 12-15-2023 End: 12-15-2023 Bamboo flowsheet Ann-Marie Wilson PA Work Phone: [facility] Start: 12-15-2023 End: 12-15-2023 Telephone encounter Rufus Tejeda MD Work Phone: [facility] Start: 12-15-2023 End: 12-15-2023 Office outpatient visit 15 minutes Ann-Marie Wilson PA Work Phone: [facility] Comment on above: Moderate persistent asthmatic bronchitis with acute exacerbation (CMS/HCC) (Primary Dx); Morbid (severe) obesity due to excess calories (CMS/HCC); Essential (primary) hypertension (CMS/HCC); Chronic obstructive pulmonary disease, unspecified (CMS/HCC); BMI 35.0-35.9,adult Start: 12-15-2023 End: 12-15-2023 ambulatory ANN-MARIE WILSON Not Available Start: 03-31-2023 ambulatory Aaron Norman ty:FLAVIO Nicholas Start: 11-06-2021 End: 11-06-2021 ambulatory Arturo Quevedo Other [facility] Other Start: 11-06-2021 Office outpatient ne w 30 minutes Arturo Quevedo [facility] Start: 08-14-[address] RUFUS TEJEDA Facility: [facility] Start: 05-22-[address] FELICITAS QUINTANA Facility:[facility] Start: 12-13-2020 End: 12-14-[address] RUFUS TEJEDA Facility:[facility] Start: 11-11-2020 End: 11-12-[address] CAM BETANCOURT Facility:[facility] Start: 06-22-2018 End: 06-22-2018 Patient encounter procedure Christine Correa Facility:[facility] Procedures Date Procedure Procedure Detail Performing Clinician Start: 02-06-2023 Mammography Ann-Marie HERNANDEZ Work Phone: Start: 09-01-2017 Colonoscopy Ann-Marie HERNANDEZ Work Phone: Plan of Treatment Date Care Activity Detail Author Start: 09-02-2027 Screening for malignant neoplasm of colon [facility] Start: 08-26-2025 Screening for malignant neoplasm of breast Mammogram [facility] Comment on above: Postponed from 02/07/2024 (Patient Refus ed) Start: 03-30-2025 Medicare Annual Wellness (AWV) Medicare Annual Wellness (AWV) [facility] Start: 03-23-2025 Pneumococcal Vaccine: 65+ Years (1 of 2 - PCV) Pneumococcal Vaccine: 65+ Years (1 of 2 - PCV) [facility] Comment on above: Postponed from 1963 (Patient Refus ed) Start: 11-11-2024 End: 11-11-2024 Patient encounter procedure 11/11/2024 2:00 PM EDT Office Visit [facility] [address] [place] [address] [place] [address] Mallory Ortega FUR TAILOR [address] [place] [address] Arrived [facility] Comment on above: Arrived Start: 09-30-2024 End: 09-30-2024 Patient encounter procedure 09/30/2024 1:00 PM EDT Office Visit [facility] [address] [place] [address] Ann-Marie Wilson PA [address] [place] [address] [facility] Start: 08-26-2024 End: 08-26-2024 Patient encounter procedure 08/26/2024 8:00 AM EDT Office Visit [facility] [address] [facility] [address] [place] [phone] Ann-Marie Wilson PA [address] [facility] [address] [place] [address] Arrived [facility] Comment on above: Arrived Start: 05-18-2024 Influenza vaccination Influenza Vaccine (#1) [facility] Comment on above: Postponed from 12/21/2023 (Patient Refus ed) Start: 04-21-2024 Screening for malignant neoplasm of breast Mammogram [facility] Comment on above: Postponed from 02/07/2024 (Patient Refus ed) Start: 03-30-2024 End: 03-30-2024 Patient encounter procedure [facility] Comment on above: Arrived Start: 03-30-2024 End: 03-30-2025 CBC W Auto Differential panel - Blood CBC and differential Lab Routine Benign essential hypertension (CMS/HCC) Vitamin D deficiency Pure hypercholesterolemia (CMS/HCC) Encounter for annual wellness exam in Medicare patient Expected: 03/30/2024 (Approximate), Expires: 03/30/2025 [facility] Work Phone: Comment on above: Expected: 03/30/2024 (Approximate), Expi res: 03/30/2025 Start: 03-30-2024 End: 03-30-2025 Comprehensive metabolic 2000 panel - Serum or Plasma Comprehensive metabolic panel Lab Routine Abnormal glucose tolerance test Benign essential hypertension (CMS/HCC) Vitamin D deficiency Encounter for annual wellness exam in Medicare patient Expected: 03/30/2024 (Approximate), Expires: 03/30/2025 [facility] Comment on above: Expected: 03/30/2024 (Approximate), Expi res: 03/30/2025 Start: 03-30-2024 End: 03-30-2025 Lipid 1996 panel - Serum or Plasma Lipid panel Lab Routine Pure hypercholesterolemia (CMS/HCC) Encounter for annual wellness exam in Medicare patient Expected: 03/30/2024 (Approximate), Expires: 03/30/2025 [facility] Comment on above: Expected: 03/30/2024 (Approximate), Expi res: 03/30/2025 Start: 03-30-2024 End: 05-31-2025 MG Breast - bilateral Screening Bilateral screening mammogram Imaging Routine Encounter for screening mammogram for malignant neoplasm of breast Expected: 03/30/2024, Expires: 05/31/2025 [facility] Comment on above: Expected: 03/30/2024, Expires: Start: 03-30-2024 End: 03-30-2025 Thyrotropin [Units/volume] in Serum or Plasma TSH Lab Routine Encounter for annual wellness exam in Medicare patient Screening for thyroid disorder Expected: 03/30/2024 (Approximate), Expires: 03/30/2025 [facility] Comment on above: Expected: 03/30/2024 (Approximate), Expi res: 03/30/2025 Start: 03-30-2024 End: 03-30-2025 Vitamin D 1,25 dihydroxy Vitamin D 1,25 dihydroxy Lab Routine Vitamin D deficiency Encounter for annual wellness exam in Medicare patient Expected: 03/30/2024 (Approximate), Expires: 03/30/2025 [facility] Comment on above: Expected: 03/30/2024 (Approximate), Expi res: 03/30/2025 Start: 03-04-2024 End: 03-04-2024 Patient encounter procedure 03/04/2024 11:00 AM EST Office Visit [facility] [address] [facility] [address] [place] [address] Ann-Marie Wilson PA [address] [facility] [address] [place] [address] [facility] Start: 02-18-2024 Pneumococcal Vaccine: 65+ Years (1 of 2 - PCV) Pneumococcal Vaccine: 65+ Years (1 of 2 - PCV) [facility] Comment on above: Postponed from 1963 (Patient Refus ed) Start: 02-07-2024 Screening for malignant neoplasm of breast Mammogram [facility] Start: 01-24-2024 Medicare Annual Wellness (AWV) Medicare Annual Wellness (AWV) [facility] Start: 12-21-2023 Influenza vaccination Influenza Vaccine (#1) [facility] Start: 12-15-2023 End: 12-15-2023 Patient encounter procedure 12/15/2023 1:30 PM EDT Office Visit [facility] [address] [facility] [address] [place] [phone] Ann-Marie Wilson PA [address] [facility] [address] [place] [address] Arrived [facility] Comment on above: Arrived Start: 1961 Pneumococcal Vaccine: 65+ Years (1 of 2 - PCV) Pneumococcal Vaccine: 65+ Years (1 of 2 - PCV) [facility] Start: 1955 Screening for malignant neoplasm of colon [facility] Payers Date Payer Category Payer Unknown [employer] [facility] [id number] 2022-Present [address] [place] [address] [id number] 2022 Unknown [id number] 2022 Medicare [id number] 2022 Private Health Insurance [id number] 2022 Medicare [id number] 2022 Unknown [id number] 1959 Self-pay 1959 Unknown [id number] 1955 Unknown [id number] 1955 Unknown [id number] 1955 Unknown [id number] 1957 Unknown [id number] 1955 Unknown [id number] 1955 Unknown [id number] .[id number] 1955 Unknown [id number] .[id number] 1955 Unknown [id number] Unknown [id number] Social History Date Type Detail Facility Unknown if ever smoked [facility] Other Start: 12-15-2023 End: 11-11-2024 Sex Assigned At [employer] Other Start: 01-23-2023 End: 12-15-2023 Tobacco smoking status [facility] Smokes tobacco daily [facility] History of tobacco use Cigarette Smoker [facility] Start: 12-15-2023 Tobacco use and exposure Smokeless tobacco non-user [facility] Start: 12-15-2023 End: 11-11-2024 Alcoholic beverage intake Ex-drinker (finding) [facility] Start: 12-15-2023 End: 11-11-2024 History of Social function [facility] Start: 01-23-2023 Alcohol Comment caffeine intaj ke: 2-3 cups per day [facility] Start: 1955 Sex assigned at Not on file [facility] Start: 01-23-2023 Alcoholic beverage intake Not Asked [facility] Start: 05-08-2024 Tobacco smoking stat us MAIS Smoker (finding) [facility] Start: 05-08-2024 Sex Female (finding) [facility] Start: 1955 Sex Assigned At Female F [facility] Functional Status Date Assessment Result Facility 11-11-2024 Patient Health Quest ionnaire 2 item (PHQ-2) [Reported] [facility] 08-26-2024 Patient Health Quest ionnaire 2 item (PHQ-2) [Reported] [facility] Clinical Notes 11-06-2021 to 11-29-2024 Mallory Ortega NP - 11/11/2024 2:00 PM MARY Samuel - 08/26/2024 8:00 AM EDTTelephone Encounter - MARY Richardson - 08/24/2024 8:01 AM Neal Tejeda MD - 03/30/2024 3:20 PM EST Note Date & Type Note Facility 11-29-2024 Note [facility] Subjective Antonio Blackwell is a 69 y.o. year old female [...] leg swelling when she wakes up in the morning, palpitations/racing heart. SOB and fatigue. Patient Active [...] use: Not Currently Drug use: Never HPI Antonio is seen as a new patient to re-establish care. I had seen her in the past last time in 2015. she is a 69-year-old woman with history of coronary artery disease mild nonobstructive by cardiac catheterization in 2015. At that time I managed her chest pain symptoms medically. In addition she has hypertension and hyperlipidemia on treatment. In the past she used to have chronic kidney disease and this improved apparently on follow-up after stopping NSAIDs. Today she reports that she has [...] kg (175 lb) SpO2 98% BMI 34.18 kg/m??? Smoking Status Every Day BSA 1.83 m??? Physical Exam Constitutional: Appearance: She is well-developed. [...] tablet TAKE 1 TABLET BY MOUTH EVERY (more content not included)... [facility] 11-11-2024 History of Present illness Narrative Images from the original note were not included. Subjective Patient ID: Antonio Blackwell is a 69 y.o. female who presents for No chief complaint on file.. Antonio presents today for feeling off balance and having dizziness. She dose have sinus pressure. This has been going on for a few days. Then 2 days ago she started with a sore throat. She does feel stressed and is worried about her BP. Hypertension This is a chronic problem. The current episode started more than 1 year ago. The problem has been gradually worsening since onset. The problem is uncontrolled. (stress) There are no associated agents to hypertension. Risk factors for coronary artery disease include stress, family history, obesity and post-menopausal state. Past treatments include VARGHESE inhibitors and beta blockers. The current treatment provides mild improvement. Sinus Problem This is a new problem. The current episode started in the past 7 days. The problem has been gradually worsening since onset. There has been no fever. She is experiencing no pain. Associated symptoms include sinus pressure, sneezing and a sore throat. (Itchy eyes, voice clearing, ears crackling) Past treatments include acetaminophen. The treatment provided no relief. Over the past 2 weeks, how often have you been bothered by any of the following problems? Little interest or pleasure in doing things: Not at all Feeling down, depressed, or hopeless: Not at all Patient Health Questionnaire-2 Score: 0 Current Outpatient Medications on File Prior to Visit Medication Sig Dispense Refill albuterol HFA (ProAir HFA) 90 mcg/act inhaler Inhale 2 puffs every 6 (six) hours if needed for wheezing. 18 g 11 ALPRAZolam (Xanax) 0.25 MG tablet Take 1 tablet (0.25 mg) by mouth every 12 (twelve) hours 60 tablet 0 aspirin (Aspir-Low) 81 MG EC tablet 1 (one) time each day at the same time. atorvastatin (Lipitor) 40 MG tablet TAKE 1 TABLET BY MOUTH EVERY DAY 100 tablet 3 lisinopril 20 MG tablet TAKE 1 TABLET BY MOUTH EVERY DAY IN THE MORNING 100 tablet 3 metoprolol succinate XL (Toprol-XL) 50 MG 24 hr tablet TAKE 1 TABLET (50 MG) BY MOUTH DAILY 90 tablet 1 No current facility-administered medications on file prior to visit. I have reviewed and reconciled the history and medication list with the patient today. Allergies Allergen Reactions Azithromycin Other Reaction(s): tongue swelling Amoxicillin Other Erythromycin Other Reaction(s): vomiting Sulfamethoxazole-Trimethoprim Other Reaction(s): Fogginess Social History Tobacco Use Smoking status: Every Day Current packs/day: 1.00 Types: Cigarettes Smokeless tobacco: Never Vaping Use Vaping status: Never Used Substance Use Topics Alcohol use: Not Currently Comment: caffeine intajke: 2-3 cups per day Drug use: Never Family History Problem Relation Name Age of Onset Diabetes Mother Hypertension Mother Heart disease Father Past Medical History: Diagnosis Date Essential hypertension History of medical problems 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 Objective Physical Exam Vitals reviewed. Constitutional: Appearance: Normal appearance. HENT: Head: Normocephalic. Right Ear: A middle ear effusion is present. Left Ear: There is impacted cerumen. Nose: Right Turbinates: Swollen. Left Turbinates: Swollen. Mouth/Throat: Lips: Tow. Mouth: Mucous membranes are moist. Pharynx: Oropharynx is clear. Eyes: Conjunctiva/sclera: Conjunctivae normal. Cardiovascular: Rate and Rhythm: Normal rate and regular rhythm. Pulmonary: Effort: Pulmonary effort is normal. Breath sounds: Normal breath sounds. Musculoskeletal: Cervical back: Neck supple. Skin: General: Skin is warm and dry. Neurological: General: No focal deficit present. Mental Status: She is alert and oriented to person, place, and time. Psychiatric: Mood and Affect: Mood normal. Behavior: Behavior normal. Thought Content: Thought content normal. Judgment: Judgment normal. Assessment/Plan Diagnoses and all orders for this visit: Essential (primary) hypertension - metoprolol succinate XL (Toprol-XL) 25 MG 24 hr tablet; Take 1 tablet (25 mg) by mouth Daily Do not crush or chew. Increase Metoprolol to 75mg . You will take the 50mg with the 25mg. You will need to follow up in 2 weeks for a blood pressure recheck. Take the xanax more frequently if needed as the stress can also increase your blood pressure. No follow-ups on file. documented in this encounter [facility] 08-26-2024 History of Present illness Narrative Images from the original note were not included. HPI testing due Additional comments: She does get a chest CT done yearly and is overdue. She has lung nodules. She gets them done at [facility]. Last edited by Dulce Ramirez LPN on 08/26/2024 8:11 AM. Subjective Patient ID: Antonio Blackwell is a 69 y.o. female who presents for sinusitis. Antonio is present today for evaluation of sinuses. Admits sinus pressure, nasal congestion, runny nose with green mucus, headaches off/on, bilateral ears feel plugged, post nasal drainage, cough - occasionally with phlegm, SOB after coughing spell, wheezing, nausea. She has been sick since last Friday. She has been taking Ibuprofen and had some leftover robitussin A-C and has been taking that at night. Her son was in a MVA last week and got life-flighted, broke his femur, doing well now though. Current Outpatient Medications on File Prior to Visit Medication Sig Dispense Refill albuterol HFA (ProAir HFA) 90 mcg/act inhaler Inhale 2 puffs every 6 (six) hours if needed for wheezing. 18 g 11 ALPRAZolam (Xanax) 0.25 MG tablet Take 1 tablet (0.25 mg) by mouth every 12 (twelve) hours aspirin (Aspir-Low) 81 MG EC tablet 1 (one) time each day at the same time. atorvastatin (Lipitor) 40 MG tablet TAKE 1 TABLET BY MOUTH EVERY DAY 100 tablet 3 lisinopril 20 MG tablet TAKE 1 TABLET BY MOUTH EVERY DAY IN THE MORNING 100 tablet 3 metoprolol succinate XL (Toprol-XL) 50 MG 24 hr tablet Take 1 tablet (50 mg) by mouth Daily TAKE 1 TABLET BY MOUTH EVERY DAY 30 tablet 3 [DISCONTINUED] metoprolol succinate XL (Toprol-XL) 25 MG 24 hr tablet TAKE 1 TABLET BY MOUTH EVERY DAY 100 tablet 3 No current facility-administered medications on file prior to visit. I have reviewed and reconciled the history and medication list with the patient today. Allergies Allergen Reactions Azithromycin Other Reaction(s): tongue swelling Amoxicillin Other Erythromycin Other Reaction(s): vomiting Sulfamethoxazole-Trimethoprim Other Reaction(s): Fogginess Social History Tobacco Use Smoking status: Every Day Current packs/day: 1.00 Types: Cigarettes Smokeless tobacco: Never Vaping Use Vaping status: Never Used Substance Use Topics Alcohol use: Not Currently Comment: caffeine intajke: 2-3 cups per day Drug use: Never Family History Problem Relation Name Age of Onset Diabetes Mother Hypertension Mother Heart disease Father Past Medical History: Diagnosis Date Essential hypertension (CMS/HCC) History of medical problems 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 History of medical problems minimal carotid arteries from [place] History of medical problems u/s kidneys where normal kidneys mildly elevated flow velocities History of medical problems carotid dopplers soft plaques within both carotid system Nephrolithiasis Salivary gland disturbance Smoker Past Surgical History: Procedure Laterality Date CARDIAC CATHETERIZATION 2014 SECTION, LOW TRANSVERSE x3 1979,1982,1997 COLONOSCOPY LA REPAIR TEAR DUCTS Visit Vitals BP (!) 144/94 Pulse 56 Temp 98.3 F Resp 16 Ht 4' 11.6 Wt 177 lb 3.2 oz SpO2 98% BMI 35.07 kg/m Smoking Status Every Day BSA 1.84 m Review of Systems Constitutional: Negative for chills, fatigue and fever. HENT: Positive for congestion, ear pain, postnasal drip, rhinorrhea, sinus pressure and sinus pain. Negative for sore throat. Respiratory: Positive for cough, shortness of breath and wheezing. Cardiovascular: Negative for chest pain, palpitations and leg swelling. Gastrointestinal: Positive for nausea. Negative for abdominal pain, constipation, diarrhea and vomiting. Neurological: Positive for headaches. Objective Physical Exam Constitutional: General: She is not in acute distress. Appearance: She is well-developed. She is obese. HENT: Head: Normocephalic and atraumatic. Right Ear: Tympanic membrane is erythematous (Mild). Left Ear: There is impacted cerumen. Ears: Comments: Mild cerumen in right canal Nose: Congestion present. Right Turbinates: Swollen. Left Turbinates: Swollen. Right Sinus: Maxillary sinus tenderness present. No frontal sinus tenderness. Left Sinus: Maxillary sinus tenderness present. No frontal sinus tenderness. Mouth/Throat: Mouth: Mucous membranes are moist. Pharynx: Posterior oropharyngeal erythema and postnasal drip present. Eyes: General: No scleral icterus. Conjunctiva/sclera: Conjunctivae normal. Pupils: Pupils are equal, round, and reactive to light. Cardiovascular: Rate and Rhythm: Normal rate and regular rhythm. Heart sounds: Normal heart sounds. No murmur heard. Pulmonary: Effort: Pulmonary effort is normal. No respiratory distress. Breath sounds: Wheezing (Bilateral inspiratory) present. No rhonchi or rales. Comments: Harsh, moist cough intermittently. Difficulty taking a deep breath without coughing. Lymphadenopathy: Cervical: Cervical adenopathy present. Right cervical: Superficial cervical adenopathy present. Left cervical: Superficial cervical adenopathy present. Skin: General: Skin is warm and dry. Neurological: General: No focal deficit present. Mental Status: She is alert and oriented to person, place, and time. Psychiatric: Mood and Affect: Mood normal. Behavior: Behavior normal. Assessment/Plan Diagnoses and all orders for this visit: Acute non-recurrent maxillary sinusitis Doxycycline as prescribed. Stay hydrated, get plenty of rest. Chronic obstructive pulmonary disease, unspecified Continue Albuterol as needed. Morbid (severe) obesity due to excess calories (CMS/HCC) Encouraged portion control, decrease simple sugars and carbohydrates, gradually increase activity level. Aim for gradual steady weight loss. Pure hypercholesterolemia, unspecified (CMS/HCC) Will continue to monitor with yearly labs. Body mass index (BMI) 35.0-35.9, adult See above. COPD exacerbation (CMS/HCC) - doxycycline (Vibramycin) 100 MG capsule; Take 1 capsule (100 mg) by mouth in the morning and 1 capsule (100 mg) before bedtime. Do all this for 7 days. Take with at least 8 ounces (large glass) of water, do not lie down for 30 minutes after. - guaiFENesin-codeine (Robitussin-AC) 100-10 MG/5ML syrup; Take 10 mL by mouth every 6 (six) hours if needed for cough for up to 7 days Cough syrup prn, reminded pt that they may cause drowsiness. Doxycycline as prescribed. Encourage probiotic while on antibiotic. Adjustment disorder with anxiety (CMS/HCC) - ALPRAZolam (Xanax) 0.25 MG tablet; Take 1 tablet (0.25 mg) by mouth every 12 (twelve) hours Medication choice and dosage is appropriate for patient's current medical conditions. Patient will continue to be required to be seen in our office at least every three months for monitoring. At each follow up visit I will reassess the patient's need for the medication. Patient is to have this medication prescribed only through this office. Failure to follow the rules and regulations will result in tapering and discontinuation of medications if applicable. Patient verbalized understanding. OARRS Report was reviewed for this patient. Follow up in about 3 months (around 11/26/2024) for Medication Follow Up. documented in this encounter [facility] 08-24-2024 Telephone encounter Note No refill on antibiotic. Last OV 03/30/24. [facility] 08-24-2024 Miscellaneous Notes No refill on antibiotic. Last OV 03/30/24. documented in this encounter [facility] 03-30-2024 History of Present illness Narrative Associated Problem(s): Smoker Discussed smoking cessation with the patient. Encouraged patient to try to cut back gradually and soon quit smoking. Discussed ways to quit smoking including gum, patches, medication, and gradually reducing the number of cigarettes smoked daily. Discussed potential health risks of intermediate smoking. Patient voiced understanding. Benefits of cessation, both health and financial, were reviewed. Associated Problem(s): Essential (primary) hypertension (CMS/HCC) Our specific goals, for your hypertension, is [...] taking them as prescribed. DASH diet handouts Images from the original note were not included. Subjective : Chief Complaint: Antonio Blackwell is an 69 y.o. female here for an annual wellness visit. I have reviewed and reconciled the history and medication list with the patient today. Current Outpatient Medications Medication Sig Dispense Refill albuterol HFA (ProAir HFA) 90 mcg/act inhaler Inhale 2 puffs every 6 (six) hours if needed for wheezing. 18 g 11 ALPRAZolam (Xanax) 0.25 MG tablet Take 1 tablet (0.25 mg) by mouth every 12 (twelve) hours aspirin (Aspir-Low) 81 MG EC tablet 1 (one) time each day at the same time. atorvastatin (Lipitor) 40 MG tablet TAKE 1 TABLET BY MOUTH EVERY DAY FOR 100 DAYS 90 tablet 0 lisinopril 20 MG tablet TAKE 1 TABLET BY MOUTH EVERY DAY IN THE MORNING 90 tablet 0 metoprolol succinate XL (Toprol-XL) 50 MG 24 hr tablet Take 1 tablet (50 mg) by mouth Daily TAKE 1 TABLET BY MOUTH EVERY DAY 30 tablet 3 No current facility-administered medications for this visit. Review of Systems Constitutional: Negative for chills, fatigue, fever and unexpected weight change. Respiratory: Negative for cough. Cardiovascular: Negative for chest pain. Gastrointestinal: Negative for abdominal pain, blood in stool, constipation, diarrhea, nausea and vomiting. Genitourinary: Negative for dysuria, enuresis, frequency and hematuria. Musculoskeletal: Negative for back pain. Neurological: Negative for dizziness, tremors, syncope, facial asymmetry and speech difficulty. Psychiatric/Behavioral: Negative for agitation, behavioral problems, confusion and dysphoric mood. The patient is not nervous/anxious. List of current healthcare providers: Patient Care Team: Rufus Tejeda MD as PCP - General (Family Medicine) Medicare Annual Visit Over the past 2 weeks, how often have you been bothered by any of the following problems? Little interest or pleasure in doing things: Not at all Feeling down, depressed, or hopeless: Not at all Patient Health Questionnaire-2 Score: 0 Ritchie Fall Risk History of Falling, Immediate or Within 3 Months: No Health Risk Assessment Form Do you need help eating, bathing, using the toilet, dressing, or getting around your home?: No Can you prepare your own meals?: Yes Can you do your own housework without help?: Yes Can you shop for groceries or clothes without help?: Yes Do you exercise for about 20 minutes 3 or more days a week?: Yes How confident are you that you can control and manage most of your health problems?: Very confident Can you mange your money, credit cards and accounts, pay bills and taxes?: Yes Vision Screening: Yes, no gross abnormalities Hearing Screening: Yes, no gross abnormalities Cognitive Screening Self Assessment: No overt cognitive deficiency is apparent by direct observation Three Word Registration: Banana, Dennis, Chair Clock Drawing: Normal Clock - 2 Three Word Recall: All 3 words correct - 3 Total Score (0-5 Points): 5 Pain Assessment Pain Score: 0 - No pain Advance Care Planning Do you have a living will?: No Do you have a medical power of engineering technical analyst?: No Objective : BP 138/88 Pulse 56 Ht 4' 11.6 Wt 181 lb SpO2 97% BMI 35.83 kg/m No results found. Physical Exam Constitutional: General: She is not in acute distress. Appearance: Normal appearance. HENT: Head: Normocephalic. Neck: Vascular: No carotid bruit. Cardiovascular: Rate and Rhythm: Normal rate and regular rhythm. Pulmonary: Effort: Pulmonary effort is normal. No respiratory distress. Breath sounds: Normal breath sounds. Skin: General: Skin is warm and dry. Neurological: General: No focal deficit present. Mental Status: She is alert and oriented to person, place, and time. Psychiatric: Mood and Affect: Mood normal. Assessment/Plan : The following health maintenance schedule was reviewed with the patient and provided in printed form in the after visit summary: Health Maintenance Topic Date Due Medicare Annual Wellness (AWV) 01/24/2024 Mammogram 04/21/2024 (Originally 02/07/2024) Influenza Vaccine (1) 05/18/2024 (Originally 12/21/2023) Pneumococcal Vaccine: 65+ Years (1 of 2 - PCV) 03/23/2025 (Originally 1961) Colorectal Cancer Screening 09/02/2027 Advance Care Planning Patient willing to discuss ACP. If in place, renew periodically. If not in place, recommend obtaining ACP. Assessment/Plan Problem List Items Addressed This Visit Adjustment disorder with anxiety (CMS/HCC) Relevant Medications ALPRAZolam (Xanax) 0.25 MG tablet Essential (primary) hypertension (CMS/HCC) Our specific goals, for your hypertension, is [...] taking them as prescribed. DASH diet handouts Relevant Medications metoprolol succinate XL (Toprol-XL) 50 MG 24 hr tablet Pure hypercholesterolemia (CMS/HCC) Relevant Orders CBC and differential Lipid panel Vitamin D deficiency Relevant Orders CBC and differential Comprehensive metabolic panel Vitamin D 1,25 dihydroxy Other Visit Diagnoses Routine general medical examination at health care facility - Primary Abnormal glucose tolerance test Relevant Orders Comprehensive metabolic panel Benign essential hypertension (CMS/HCC) Relevant Orders CBC and differential Comprehensive metabolic panel Encounter for annual wellness exam in Medicare patient Relevant Orders CBC and differential Comprehensive metabolic panel Lipid panel TSH Vitamin D 1,25 dihydroxy Encounter for screening mammogram for malignant neoplasm of breast Relevant Orders Bilateral screening mammogram Screening for thyroid disorder Relevant Orders TSH Essential hypertension (CMS/HCC) Relevant Medications metoprolol succinate XL (Toprol-XL) 50 MG 24 hr tablet Orders Placed This Encounter Procedures Bilateral screening mammogram Standing Status: Future Number of Occurrences: 1 Standing Expiration Date: 05/31/2025 Order Specific Question: Reason for exam: Answer: yearly CBC and differential Standing Status: Future Number of Occurrences: 1 Standing Expiration Date: 03/30/2025 Order Specific Question: Print requisition? Answer: No Comprehensive metabolic panel Standing Status: Future Number of Occurrences: 1 Standing Expiration Date: 03/30/2025 Order Specific Question: Print requisition? Answer: No Lipid panel Standing Status: Future Number of Occurrences: 1 Standing Expiration Date: 03/30/2025 TSH Standing Status: Future Number of Occurrences: 1 Standing Expiration Date: 03/30/2025 Order Specific Question: Print requisition? Answer: No Vitamin D 1,25 dihydroxy Standing Status: Future Number of Occurrences: 1 Standing Expiration Date: 03/30/2025 Order Specific Question: Print requisition? Answer: No Electronically signed by Rufus Tejeda MD on March 30, 2024 documented in this encounter [facility] 03-17-2024 Telephone encounter Note Scheduled [facility] 03-17-2024 Miscellaneous Notes Scheduled Patient was last seen in November. Macrobid called in but probably needs an appointment per jessee Pt called again this morning wanting antibiotics for a UTI Pt states she is getting an UTI. She'd like to have an antibiotic called in to [facility] if possible. She states she isn't able to come in for an appointment due to her having surgery today and she is unable to leave him home alone. documented in this encounter [facility] 03-17-2024 Telephone encounter Note Patient was last seen in November. Macrobid called in but probably needs an appointment per jessee [facility] 03-16-2024 Telephone encounter Note Pt called again this morning wanting antibiotics for a UTI [facility] 03-15-2024 Telephone encounter Note Pt states she is getting an UTI. She'd like to have an antibiotic called in to [facility] if possible. She states she isn't able to come in for an appointment due to her having surgery today and she is unable to leave him home alone. [facility] 02-20-2024 Telephone encounter Note Scheduled [facility] 02-20-2024 Miscellaneous Notes Scheduled OARRS reviewed, Rx sent into patient's pharmacy. Please help patient get set up for a wellness and medication follow up visit within the next month. ALPRAZolam (Xanax) 0.25 MG tablet to [facility] documented in this encounter [facility] 02-20-2024 Telephone encounter Note OARRS reviewed, Rx sent into patient's pharmacy. Please help patient get set up for a wellness and medication follow up visit within the next month. [facility] 02-20-2024 Telephone encounter Note ALPRAZolam (Xanax) 0.25 MG tablet to [facility] 12-15-2023 Telephone encounter Note Kayla sent in for her. [facility] 12-15-2023 Miscellaneous Notes Kayla sent in for her. guaiFENesin-codeine (Robitussin-AC) 100-10 MG/5ML syru She wants to know if theres anything else she can have. Its $39 because her insurance doesn't cover it. documented in this encounter [facility] 12-15-2023 Telephone encounter Note guaiFENesin-codeine (Robitussin-AC) 100-10 MG/5ML syru She wants to know if theres anything else she can have. Its $39 because her insurance doesn't cover it. [facility] 12-15-2023 History of Present illness Narrative Subjective Patient ID: Antonio Blackwell is a 68 y.o. female who presents for cough. Antonio is present today for evaluation of cough. Admits sinus pressure/pain, cough with yellow phlegm, post nasal drainage, bilateral ear discomfort (left worse than right), fatigue, yellow drainage from nose. She has been sick off/on for 2 weeks. She has been using Mucinex, Ibuprofen, tylenol. Current Outpatient Medications on File Prior to Visit Medication Sig Dispense Refill albuterol HFA (ProAir HFA) 90 mcg/act inhaler Inhale 2 puffs every 6 (six) hours if needed for wheezing. 18 g 11 ALPRAZolam (Xanax) 0.25 MG tablet Take 1 tablet (0.25 mg) by mouth every 12 (twelve) hours 60 tablet 0 aspirin (Aspir-Low) 81 MG EC tablet 1 (one) time each day at the same time. atorvastatin (Lipitor) 40 MG tablet TAKE 1 TABLET BY MOUTH EVERY DAY FOR 100 DAYS 90 tablet 0 lisinopril 20 MG tablet TAKE 1 TABLET BY MOUTH EVERY DAY IN THE MORNING 90 tablet 0 metoprolol succinate XL (Toprol-XL) 25 MG 24 hr tablet TAKE 1 TABLET BY MOUTH EVERY DAY 90 tablet 0 No current facility-administered medications on file prior to visit. Allergies Allergen Reactions Amoxicillin Other Azithromycin Other Reaction(s): tongue swelling Erythromycin Other Reaction(s): vomiting Sulfamethoxazole-Trimethoprim Other Reaction(s): Fogginess Social History Tobacco Use Smoking status: Every Day Current packs/day: 1.00 Types: Cigarettes Smokeless tobacco: Never Vaping Use Vaping status: Never Used Substance Use Topics Alcohol use: Not Currently Comment: caffeine intajke: 2-3 cups per day Drug use: Never Family History Problem Relation Name Age of Onset Diabetes Mother Hypertension Mother Heart disease Father Past Medical History: Diagnosis Date Essential hypertension (CMS/HCC) History of medical problems 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 History of medical problems minimal carotid arteries from [place] History of medical problems u/s kidneys where normal kidneys mildly elevated flow velocities History of medical problems carotid dopplers soft plaques within both carotid system Nephrolithiasis Salivary gland disturbance Smoker Past Surgical History: Procedure Laterality Date CARDIAC CATHETERIZATION 2015 SECTION, LOW TRANSVERSE x3 1979,1982,1997 COLONOSCOPY LA REPAIR TEAR DUCTS Visit Vitals BP 138/78 Pulse 57 Temp 99.2 F Resp 16 Ht 4' 11.6 Wt 178 lb 9.6 oz SpO2 94% BMI 35.35 kg/m Smoking Status Every Day BSA 1.85 m Review of Systems Constitutional: Positive for fatigue. Negative for chills and fever. HENT: Positive for congestion, ear pain, postnasal drip, rhinorrhea, sinus pressure and sinus pain. Negative for sore throat. Respiratory: Positive for cough. Negative for shortness of breath and wheezing. Cardiovascular: Negative for chest pain, palpitations and leg swelling. Gastrointestinal: Negative for abdominal pain, constipation, diarrhea, nausea and vomiting. Objective Physical Exam Constitutional: General: She is not in acute distress. Appearance: She is well-developed. She is obese. HENT: Head: Normocephalic and atraumatic. Right Ear: Ear canal normal. Tympanic membrane is injected. Left Ear: There is impacted cerumen. Nose: Right Turbinates: Swollen. Left Turbinates: Swollen. Mouth/Throat: Mouth: Mucous membranes are moist. Pharynx: Posterior oropharyngeal erythema present. Comments: Mild pharyngeal erythema Eyes: General: No scleral icterus. Conjunctiva/sclera: Conjunctivae normal. Neck: Thyroid: No thyromegaly. Cardiovascular: Rate and Rhythm: Normal rate and regular rhythm. Heart sounds: Normal heart sounds. No murmur heard. Pulmonary: Effort: Pulmonary effort is normal. No respiratory distress. Breath sounds: Examination of the right-upper field reveals wheezing and rhonchi. Examination of the left-upper field reveals wheezing and rhonchi. Wheezing and rhonchi present. No rales. Comments: Paroxsymal frequent harsh, moist cough Lymphadenopathy: Cervical: No cervical adenopathy. Skin: General: Skin is warm and dry. Neurological: General: No focal deficit present. Mental Status: She is alert and oriented to person, place, and time. Psychiatric: Mood and Affect: Mood normal. Behavior: Behavior normal. Assessment/Plan Diagnoses and all orders for this visit: Moderate persistent asthmatic bronchitis with acute exacerbation (CMS/HCC) - guaiFENesin-codeine (Robitussin-AC) 100-10 MG/5ML syrup; Take 10 mL by mouth every 6 (six) hours if needed for cough for up to 7 days - doxycycline (Vibramycin) 100 MG capsule; Take 1 capsule (100 mg) by mouth in the morning and 1 capsule (100 mg) before bedtime. Do all this for 7 days. Take with at least 8 ounces (large glass) of water, do not lie down for 30 minutes after. Start the above medications as directed. Encouraged probiotic while on antibiotic. Can take cough syrup prn for cough. Increase water intake, get plenty of rest. Can take Tylenol prn for any discomfort or fever. Cough into elbow. Wash hands often. Advised patient that cough can linger with bronchitis. Contact office if no improvement in one week. Would plan to order a CXR. Morbid (severe) obesity due to excess calories (CMS/[facility]) Encouraged pt to stay hydrated. Essential (primary) hypertension (CMS/HCC) BP stable at this time. Will continue current meds and continue to monitor. Chronic obstructive pulmonary disease, unspecified ([facility]) Continue inhaler as needed. BMI 35.0-35.9,adult Follow up if symptoms worsen or fail to improve. documented in this encounter [facility] 11-06-2021 Evaluation note Encounter Date Diagnosis Assessment [...] to stop NSAIDs and take Tylenol instead Dada Other Evaluation note* Diagnosis Adjustment disorder with anxiety (CMS/HCC) Adjustment disorder with anxiety [facility] Diagnosis Acute cystitis without hematuria- Primary [facility] Diagnosis Routine general medical examination at health care facility- Primary Routine general medical examination at a health care facility Abnormal glucose tolerance test Impaired glucose tolerance test Benign essential hypertension (CMS/HCC) Essential hypertension, benign Vitamin D deficiency Pure hypercholesterolemia (CMS/HCC) Pure hypercholesterolemia Encounter for annual wellness exam in Medicare patient Encounter for screening mammogram for malignant neoplasm of breast Screening for thyroid disorder Essential (primary) hypertension (CMS/HCC) Unspecified essential hypertension Essential hypertension (CMS/HCC) Unspecified essential hypertension Adjustment disorder with anxiety (CMS/HCC) Adjustment disorder with anxiety Smoker Tobacco use disorder [facility] Diagnosis Moderate persistent asthmatic bronchitis with acute exacerbation (CMS/HCC)- Primary [facility]* Diagnosis Moderate persistent asthmatic bronchitis with acute exacerbation (CMS/HCC)- Primary Morbid (severe) obesity due to excess calories (CMS/HCC) Essential (primary) hypertension (CMS/HCC) Unspecified essential hypertension Chronic obstructive pulmonary disease, unspecified (CMS/HCC) BMI 35.0-35.9,adult [facility] noteNo assessment information availableKn[facility] Work Phone: Evaluation note* Diagnosis Routine general medical examination at health care facility- Primary Routine general medical examination at a health care facility Abnormal glucose tolerance test Impaired glucose tolerance test Benign essential hypertension (CMS/HCC) Essential hypertension, benign Vitamin D deficiency Pure hypercholesterolemia (CMS/HCC) Pure hypercholesterolemia Encounter for annual wellness exam in Medicare patient Encounter for screening mammogram for malignant neoplasm of breast Screening for thyroid disorder Essential (primary) hypertension (CMS/HCC) Unspecified essential hypertension Essential hypertension (CMS/HCC) Unspecified essential hypertension Adjustment disorder with anxiety (CMS/HCC) Adjustment disorder with anxiety Smoker Tobacco use disorder Moderate persistent asthmatic bronchitis with acute exacerbation (CMS/HCC) [facility]* Diagnosis Routine general medical examination at health care facility- Primary Routine general medical examination at a health care facility Abnormal glucose tolerance test Impaired glucose tolerance test Benign essential hypertension (CMS/HCC) Essential hypertension, benign Vitamin D deficiency Pure hypercholesterolemia (CMS/HCC) Pure hypercholesterolemia Encounter for annual wellness exam in Medicare patient Encounter for screening mammogram for malignant neoplasm of breast Screening for thyroid disorder Essential (primary) hypertension (CMS/HCC) Unspecified essential hypertension Essential hypertension (CMS/HCC) Unspecified essential hypertension Adjustment disorder with anxiety (CMS/HCC) Adjustment disorder with anxiety Smoker Tobacco use disorder Acute non-recurrent maxillary sinusitis- Primary Chronic obstructive pulmonary disease, unspecified Morbid (severe) obesity due to excess calories (CMS/HCC) Pure hypercholesterolemia, unspecified (CMS/HCC) Body mass index (BMI) 35.0-35.9, adult COPD exacerbation (CMS/HCC) Obstructive chronic bronchitis with exacerbation Adjustment disorder with anxiety (CMS/HCC) Adjustment disorder with anxiety [facility]* Diagnosis Routine general medical examination at health care facility- Primary Routine general medical examination at a health care facility Abnormal glucose tolerance test Impaired glucose tolerance test Benign essential hypertension Essential hypertension, benign Vitamin D deficiency Pure hypercholesterolemia Pure hypercholesterolemia Encounter for annual wellness exam in Medicare patient Encounter for screening mammogram for malignant neoplasm of breast Screening for thyroid disorder Essential (primary) hypertension Unspecified essential hypertension Essential hypertension Unspecified essential hypertension Adjustment disorder with anxiety Adjustment disorder with anxiety Smoker Tobacco use disorder Essential (primary) hypertension- Primary Unspecified essential hypertension [facility]ative - Reported* Type Description Date Medical History HTN Surgical History C SECTIONS X3 Hospitalization History see above Hospitalization History HTN Dada Other Summary Purpose Family History No Family History Records Found Relationship Condition Age at Onset Recorded Date/T thanh father Unknown Heart disease Unknown mother Diabetes mellitus Unknown Unknown Advance Directives No Advanced Directives Records Found Advance Directive Response Recorded Date/ Time Advance Directives No August 29 4:39pm Chief Complaint and Reason for Visit Chief Complaint Admit Date body aches, congestion May 08 9:15am Additional Source Comments INFORMATION SOURCE (unrecogn ized section and content) DATE CREATED AUTHOR 07/01/2018 [facility] DATE CREATED AUTHOR AUTHOR'S ORGANIZ ATION 08/17/2021 Marely Maya [facility] DATE CREATED AUTHOR AUTHOR'S ORGANIZ ATION 12/31/2022 [facility] DATE CREATED AUTHOR AUTHOR'S ORGANIZ ATION 04/10/2024 [facility] DATE CREATED AUTHOR AUTHOR'S ORGANIZ ATION 11/13/2024 [facility] DATE CREATED AUTHOR AUTHOR'S ORGANIZ ATION 11/30/2024 [facility] REASON FOR VISIT (unrecogniz ed section and content) Reason Comments Medicare Annual Wellness Visit Padmini petty Pt bp today is 142/88 Reason Onset Date Comments Med Refill 08/23/2024 Wanted to know i f she could get the same antibiotic sent in that she did last time she had a URI. Her son is in [facility] and she said she caught something there. She is traveling back and forth visiting him. Sent to [facility] Reason Comments testing due She does get a chest CT done yearly and is overdue. She has lung nodules. She gets them done at [facility]. Care Teams (unrecognized sec tion and content) Superintendent Radio Communications Relationship Specialty Start Date End Date Rufus Tejeda MD [address] [facility] [address] [place] [address] PCP - General Family Medicine 08/27/22 Superintendent [employer] Relationship Specialty Start Date End Date Rufus Tejeda MD [address] [facility] [address] [place] [address] PCP - General Family Medicine 08/27/22 Superintendent [employer] Relationship Specialty Start Date End Date Rufus Tejeda MD [address] [facility] [address] [place] [address] PCP - General Family Medicine 08/27/22 Superintendent [employer] Communications Relationship Specialty Start Date End Date Rufus Tejeda MD [address] [facility] [address] [place] [address] PCP - General Family Medicine 08/27/22 Superintendent [employer] Communications Relationship Specialty Start Date End Date Rufus Tejeda MD [address] [facility] [address] [place] [address] PCP - General Family Medicine 08/27/22 Superintendent [employer] Communications Relationship Specialty Start Date End Date Rufus Tejeda MD [address] [facility] [address] [place] [address] PCP - General Family Medicine 08/27/22 Team Status: Active Member Role Status Dates Rufus Tejeda MD Primary Care Provider Active Team Status: Inactive Member Role Status Dates Rufus Tejeda MD Primary Care Provider Active S tart: May 08, 2024 End: May 08, 2024 Lillie Madsen APRN Attending Provider Active Start: May 08, 2024 End: May 08, 2024 Superintendent [employer] Communications Relationship Specialty Start Date End Date Rufus Tejeda MD [address] [facility] [address] [place] [address] PCP - General Family Medicine 08/27/22 Mallory Ortega, FUR TAILOR [address] [facility] [address] [place] [address] PCP - ACO Reach 05/28/24 Superintendent [employer] Relationship Specialty Start Date End Date Rufus Tejeda MD [address] [facility] [address] [place] [address] PCP - General Family Medicine 08/27/22 Mallory Ortega FUR TAILOR [address] [facility] [address] [place] [address] PCP - ACO Reach 05/28/24 Superintendent [employer] Communications Relationship Specialty Start Date End Date Rufus Tejeda MD [address] [facility] [address] [place] [address] PCP - General Family Medicine 08/27/22 Mallory Ortega FUR TAILOR [address] [facility] [address] [place] [address] PCP - ACO Reach 05/28/24 Superintendent [employer] Communications Relationship Specialty Start Date End Date Rufus Tejeda MD [address] [facility] [place] [address] PCP - General Family Medicine 08/27/22 Mallory Ortega NP [address] [facility] [place] [address] PCP - ACO Reach 05/28/24 Goals (unrecognized section and content) Goals may be documented in a n alternate section FOR RECORDS PERTAINING TO PATIENTS WHO ARE [...] BE BASED ON THE PRIMARY CLINICAL RECORDS. [employer] provides no warranty or guarantee of the accuracy or completeness of information in this document.
--- NOTE | 2024-12-08 09:00 | CA_ITS ---
Patient Name: ANTONIO BLACKWELL MR#: [id number] : 1955 Exam Date: 12/08/2024 Ordering Doctor: DR FELICITAS GEE M.D. ECHOCARDIOGRAM REPORT PROCEDURE: CA ECHO DOPPLER COMPLETE INDICATIONS: Dizziness, coronary artery disease, smoker, COPD, hypertension COMPARISON: None. DESCRIPTION: COMPLETE ECHOCARDIOGRAM Real-time transthoracic echocardiography with 2D, M-mode, spectral and color flow Doppler performed. QUALITY: LEFT VENTRICLE: Normal chamber size. Proximal septal hypertrophy (sigmoid septum). Estimated left ventricular ejection fraction is 65%. LV EF: Normal left ventricular ejection fraction, (>55%). DIASTOLIC: Diastolic function is indeterminate. ATRIAL SEPTUM: LEFT ATRIUM: Normal chamber size. RIGHT ATRIUM: Normal chamber size. RIGHT VENTRICLE: Normal chamber size. Normal right ventricular systolic function. TRICUSPID VALVE: Normal mobility and thickness. No stenosis with trivial regurgitation. Doppler studies reveal mildly (35-45) elevated right sided pressures. RVSP 41 mmHg MITRAL VALVE: Normal mobility and thickness. No evidence of mitral valve stenosis. Mild mitral annular calcification. No mitral regurgitation. AORTIC VALVE: Normal trileaflet appearance. Normal leaflet mobility. No evidence of aortic valve stenosis. Multifocal calcifications. No aortic regurgitation. AORTIC ROOT: Normal diameter and appearance, measuring 2.8 cm. Ascending aorta is normal in size, measuring 3.0 cm. PULMONIC VALVE: Normal thickness and mobility. No stenosis. No regurgitation. PERICARDIUM: No evidence of pericardial effusion. IVC: Collapses with inspiration. PLEURA: CONCLUSION: 1. Normal left ventricular size and systolic function. LVEF is estimated at 65%. 2. Normal right ventricular size and systolic function. 3. No significant valvular dysfunction. 4. Mildly elevated right-sided pressures. RVSP is 41 mmHg. 5. No pericardial effusion. Adult Echocardiography Procedure Report Left Ventricle LVEDD (3.7 - 5.6 cm): 3.44 cm LVESD (2.2 - 4.0 cm): 2.22 cm LVIVS thickness (0.6 - 1.2 cm): 1.05 cm LVPW thickness (0.5 - 1.0 cm): 1.13 cm e': 0.09 m/s E - e': 8.08 LVOT Max Gradient: 2.44 mm[Hg] LVOT Area (cm2): 0.78 m/s Peak Velocity (LVOT): 0.78 m/s Mean Velocity (LVOT): 0.54 m/s LVOT Diameter 1.99 cm Left Ventricular Ejection Fraction: 65 % Left Atrium LA Volume Index (2D A2C): 22.30 ml/m2 Left Atrium Systolic Dimension: 2.73 cm Mitral Valve MV E to A Ratio: 1.06 Mitral Valve A-Wave Peak Velocity: 0.67 m/s Mitral Valve E-Wave Peak Velocity: 0.71 m/s Right Ventricle Aorta AO Root Diam: 2.85 cm Ascending Ao Diam: 2.96 cm Aortic Valve AoV Area (Peak Ze): 1.84 cm2, 1.84 cm2 AoV Area (VTI): 2.17 cm2, 2.17 cm2 Peak Velocity(Antegrade Flow): 1.32 m/s Peak Gradient(Antegrade Flow): 6.99 mm[Hg] Mean Velocity(Antegrade Flow): 0.74 m/s Mean Gradient(Antegrade Flow): 2.68 mm[Hg] Velocity Time Integral: 26.38 cm Tricuspid Valve Peak Velocity (Regurgitant Flow): 1.87 m/s, 2.13 m/s, 3.08 m/s Pulmonic Valve Peak Gradient: 1.59 mm[Hg], 2.40 mm[Hg] Right Atrium Right Atrium Systolic Pressure: 30.31 ml, 30.31 ml Dictated by: Felicitas Gee M.D. on 12/08/2024 at 18:02 Approved by: Felicitas Gee M.D. on 12/08/2024 at 18:05
== END 2024-12-08 08:42 | disposition home or self-care (01) ==
LOC: CARD 08:41
PROVIDERS: PCP Family Medicine; Visit Provider Internal Medicine Interventional Cardiology
DX: I25.10 Atherosclerotic heart disease of native coronary artery without angina pectoris (principal); R42 Dizziness and giddiness
CPT/HCPCS: 93306

== ENCOUNTER 2025-04-20 09:01 | Outpatient (OUT) | payer MEDICARE, OTHER, SELFPAY ==
--- OUTSIDE RECORDS SUMMARY | 2025-04-18 13:30 | XMS_ITS | Encounter Summary ---
Author Organization [facility] Address [address] [place] [address] Care Team Providers Care Office Professionals Name Role Phone Rufus House MD Primary Care Provider [phone] Love Ortega PERSONNEL SCHEDULER Unavailable [phone] Reason for Visit * ReasonCommentsURI Encounter Details DateTypeDepartmentCare Team (Latest Contact Info)Yccxhzjgcdd61/29/2025 1:30 PM ESTOffice Visit [facility] [address] [facility] [address] [place] [id number] Rufus House MD [address] [facility] [address] [place] [address] RUQ pain (Primary Dx); Viral upper respiratory tract infection Social History Tobacco UseTypesPacks/DayYears UsedDateSmoking Tobacco: Every DayCigarettes Smokeless Tobacco: NeverAlcohol UseStandard Drinks/WeekCommentsNot Currently0 (1 standard drink = 0.6 oz pure alcohol)caffeine intajke: 2-3 cups per dayPHQ-2 AnswerDate RecordedPatient Health Questionnaire-2 [id number] CommentsUnknownSex and Gender InformationValueDate RecordedSex Assigned at Not on fileLegal SdkXvxrng77/15/2023 7:47 PM EDTGender IdentityNot on fileSexual OrientationNot on filedocumented as of this encounter Last Filed Vital Signs Vital SignReadingTime TakenCommentsBlood Cahhpqan717/6804/18/2025 1:33 PM EST Avaww510704/18/2025 1:33 PM SZYHpgyjwpugco00.3 ??C (99.2 ??F)04/18/2025 1:33 PM ESTRespiratory Rate--Oxygen Rvqrblktgz54%04/18/2025 1:33 PM ESTInhaled Oxygen Concentration--Xrufeu41.6 kg (171 lb)04/18/2025 1:33 PM DPLXoyyvh577.4 cm (5') 04/18/2025 1:33 PM ESTBody Mass Index33. 1:33 PM ESTdocumented in this encounter Progress Notes * Rufus House MD - 04/18/2025 1:52 PM ESTAssociated Problem(s): Viral upper respiratory tract infection Supportive Care Increase fluids, Tylenol, Ibuporfen, Sagar''''s vapor vapor rub, sagar''''s humidifier. Watch for bacterial infections. Mucinex D * Rufus House MD - 04/18/2025 1:52 PM ESTAssociated Problem(s): RUQ pain Positive Blevins's sign Avoid Fatty Foods Increase fluids US of GB ordered * Rufus House MD - 04/18/2025 1:30 PM EST Images from the original note were not included. Subjective Patient ID: Stephanie Juárez is a 70 y.o. female who presents for URI. Started last Friday with diarrhea and vomited, pains in stomach , the pain comes in waves and feels like hungary pains the pain is located in the middle of her abd. Under her rib cage, slept a lot,body aches, no fever or chills No coughing still nauseated, weak , hard to eat Pt is just having stomach pain states it comes in waves nauseated, Pt did try Pepto bismol this did help some Still With Abdominal Pain Has Vomiting and Diarrhea URI This is a chronic problem. The current episode started in the past 7 days. The problem has been gradually improving. There has been no fever. Associated symptoms include abdominal pain. Current Outpatient Medications on File Prior to Visit Medication Sig Dispense Refill albuterol HFA (ProAir HFA) 90 mcg/act inhaler Inhale 2 puffs every 6 (six) hours if needed for wheezing. 18 g 11 ALPRAZolam (Xanax) 0.25 MG tablet Take 1 tablet (0.25 mg) by mouth every 12 (twelve) hours 60 tablet 0 amLODIPine (Norvasc) 5 MG tablet Take 5 mg by mouth in the morning. aspirin (Aspir-Low) 81 MG EC tablet 1 (one) time each day at the same time. atorvastatin (Lipitor) 40 MG tablet TAKE 1 TABLET BY MOUTH EVERY DAY 100 tablet 3 lisinopril 20 MG tablet TAKE 1 TABLET BY MOUTH EVERY DAY IN THE MORNING 100 tablet 3 metoprolol succinate XL (Toprol-XL) 25 MG 24 hr tablet TAKE 1 TABLET (25 MG) BY MOUTH DAILY DO NOT CRUSH OR CHEW TAKE WITH 50 MG TAB 100 tablet 3 metoprolol succinate XL (Toprol-XL) 50 MG 24 hr tablet TAKE 1 TABLET BY MOUTH EVERY DAY 90 tablet 1 No current facility-administered medications [...] 2014 SECTION, LOW TRANSVERSE x3 1979,1982,1997 COLONOSCOPY NV REPAIR TEAR DUCTS Visit Vitals BP 112/68 Pulse 61 Temp 99.2 ??F Ht 5' Wt 171 lb SpO2 99% BMI 33.40 kg/m?? Smoking Status Every Day BSA 1.81 m?? Review of Systems Gastrointestinal: Positive for abdominal pain. Objective Physical Exam Constitutional: General: She is not in acute distress. Appearance: Normal appearance. HENT: Head: Normocephalic. Neck: Vascular: No carotid bruit. Cardiovascular: Rate and Rhythm: Normal rate and regular rhythm. Pulmonary: Effort: Pulmonary effort is normal. No respiratory distress. Breath sounds: Normal breath sounds. Abdominal: General: Abdomen is flat. Palpations: Abdomen is soft. Tenderness: There is abdominal tenderness in the right upper quadrant. Positive signs include Blevins's sign. Neurological: General: No focal deficit present. Mental Status: She is alert and oriented to person, place, and time. Psychiatric: Mood and Affect: Mood normal. Assessment/Plan Problem List Items Addressed This Visit RUQ pain - Primary Positive Blevins's sign Avoid Fatty Foods Increase fluids US of GB ordered Relevant Orders US gallbladder Viral upper respiratory tract infection Supportive Care Increase fluids, Tylenol, Ibuporfen, Sagar''''s vapor vapor rub, sagar''''s humidifier. Watch for bacterial infections. Mucinex D No follow-ups on file. documented in this encounter Plan of Treatment NameTypePriorityAssociated DiagnosesOrder ScheduleUS gallbladderImagingRoutine RUQ pain Expected: 04/18/2025, Expires: 04/18/2026documented as of this encounter Visit Diagnoses Diagnosis RUQ pain- Primary Abdominal pain, right upper quadrant Viral upper respiratory tract infection Acute upper respiratory infections of unspecified site documented in this encounter Additional Health Concerns AssessmentNoted TimePHQ-9 Depression Total Score: 12:00 PM EDT documented as of this encounter Care Teams Team MemberRelationshipSpecialtyStart DateEnd Date Rufus House MD [address] [address] PCP - GeneralFamily Medicine08/27/22 Love Ortega NP [address] [address] [facility] 05/28/24documented as of this encounter
--- OUTSIDE RECORDS SUMMARY | 2025-04-20 09:03 | XMS_ITS | CCD ---
Author Organization [facility] Care Team Providers Care Template Fitter Name Role Phone Christine Correa Admitting Unavailable Christine Correa Attending Unavailable Rufus Tejeda Primary Care Unavailable MOUKARBEL, DR POLK Admitting Unavailable JESSEE, DR ARAUJO Primary Care Unavailable MOUKARBFRANKLYN, DR POLK Attending Unavailable JESSEE, DR ARAUJO [...] WILSON Attending Unavailable RUFUS TEJEDA Attending Unavailable MOFELICITAS PRICE Attending Unavailable Bertha Hernandez RN Unavailable Allergies Allergy ClassificationReported Allergen(s)Allergy TypeDate of OnsetReaction(s) Facility (20 sources)Amoxicillin; Translations: [AMOXICILLIN]Drug Jisouoj68-14-7316Meqgb [facility] (20 sources)Azithromycin; Translations: [AZITHROMYCIN]Drug Qfcqrjt38-08-3773[facility] (19 sources)ErythromycinDrug Mltmcqb93-03-0829ZKGB Healthcare (20 sources)Sulfamethoxazole / Trimethoprim; Translations: [SULFAMETHOXAZOLE-TRIMETHOPRIM]Drug Bxcedue31-76-1781UVLO Healthcare (1 source)Sulfonamides (Antibiotic); Translations: [SULFA (SULFONAMIDE ANTIBIOTICS)]Propensity to adverse reactions to drug (disorder)01-24-2022 [facility] Repository Medications Current Medications MedicationDrug Class(es)DatesSig (Normalized)Sig (Original)[id number] 200 actuat albuterol 0.09 mg/actuat metered dose inhaler (19 sources)beta2-Adrenergic AgonistStart: 88-37-1615qpzv 2 puff(s) by inhalation every six hours for wheezingalbuterol HFA (ProAir HFA) 90 mcg/act inhaler Indications: Chronic obstructive pulmonary disease, unspecified COPD type (HCC) Inhale 2 puffs every 6 (six) hours if needed for wheezing. 18 g 11 01/23/2023 ActiveALPRAZolam 0.25 mg oral tablet (20 sources)BenzodiazepineStart: 07-08-2023 End: 84-45-5697kjng 1 tablet by mouth onceALPRAZolam (Xanax) 0.25 MG tablet Indications: Adjustment disorder with anxiety Take 1 tablet (0.25mg) by mouth every 12 (twelve) hours 60 tablet 01/31/2025 03/02/2025 ActiveAspir-81 (1 source)Aspir-81 Activeaspirin 81 mg delayed release oral tablet (20 sources)Platelet Aggregation Inhibitor, Nonsteroidal Anti-inflammatory Drug Start: 82-47-0932Hyjbwcx (Thierry Low Dose Aspirin) 81 mg tablet,delayed release (DR/EC) Active 81 MG PO Daily 2024 9:40amStart: 09-01-2017 End: 76-80-9871lkqg 2 tablets by mouth once dailyAspirin (Thierry Low Dose Aspirin) 81 mg Tablet,Delayed Release (Dr/Ec) Discontinued 2 TAB PO Daily August 31, 2017 11:00pm May 08, 2024 9:40amatorvastatin 40 mg oral tablet (20 sources)HMG-CoA Reductase InhibitorStart: 78-63-4835wjqa 1 tablet by mouth once dailyatorvastatin (Lipitor) 40 MG tablet Indications: Pure hypercholesterolemia TAKE 1 TABLET BY MOUTH EVERY DAY 100 tablet 3 07/19/2024 ActiveStart: 76-11-4107dyhm 1 tablet by mouth once dailyAtorvastatin 40 mg tablet Active 40 MG PO Daily May 08, 2024 12:00amStart: 50-88-0299hgiq 1 tablet by mouth once dailyatorvastatin (Lipitor) 40 MG tablet Indications: Pure hypercholesterolemia (CMS/HCC) TAKE 1 TABLET BY MOUTH EVERY DAY FOR 100 DAYS 90 tablet 11/03/2023 Activetake 1 tablet by mouth every twenty-four hours Atorvastatin Calcium 40 MG 1 tablet Orally Once a day for 90 Days Active benzonatate 200 mg oral capsule (1 source)Non-narcotic AntitussiveStart: 12-15-2023 End: 98-84-0923shhj 1 capsule by mouth three times daily as needed for cough benzonatate (Tessalon) 200 MG capsule Indications: Moderate persistent asthmatic bronchitis with acute exacerbation (CMS/HCC) Take 1 capsule (200 mg) by mouth 3 (three) times a day as needed for cough for up to 7 days Do not crush or chew. 21 capsule 12/15/2023 12/22/2023 Activecodeine phosphate 2 mg/ml / guaiFENesin 20 mg/ml oral solution (5 sources)Opioid AgonistStart: 08-26-2024 End: 66-32-2677qsdc 10 mL by mouth every six hours for coughguaiFENesin-codeine (Robitussin-AC) 100-10 MG/5ML syrup Indications: COPD exacerbation (CMS/HCC) Marc e 10 mL by mouth every 6 (six) hours if needed for cough for up to 7 days 280 mL 08/26/2024 09/02/2024 ActiveStart: 12-15-2023 End: 81-48-7104nufa 10 mL by mouth every six hours for coughguaiFENesin-codeine (Robitussin-AC) 100-10 MG/5ML syrup Indications: Moderate persistent asthmatic b ronchitis with acute exacerbation (CMS/HCC) Take 10 mL by mouth every 6 (six) hours if needed for cough for up to 7 days 280 mL 12/15/2023 12/15/2023 Discontinued (Cost of medication)doxycycline hyclate 100 mg oral capsule (6 sources)Tetracycline-class DrugStart: 08-26-2024 End: 54-96-6644hwczmalzzzh (Vibramycin) 100 MG capsule Indications: COPD exacerbation (CMS/HCC) Take 1 capsule (100 mg) by mouth in the morning and 1 capsule (100 mg) before bedtime. Do all this for 7 days. Take with at least 8 ounces (large glass) of water, do not lie down for 30 minutes after. 14 capsule 08/26/2024 09/02/2024 ActiveStart: 74-62-5410hout 1 capsule by mouth twice daily Doxycycline Hyclate 100 mg capsule Active 100 MG PO Twice daily 07 02May 08, 2024 12:00amStart: 12-15-2023 End: 61-13-0416pvkdsvvnbam (Vibramycin) 100 MG capsule Indications: Moderate persistent asthmatic bronchitis with acute exacerbation (CMS/HCC) Take 1 capsule (100 mg) by mouth in the morning and 1 capsule (100 mg) before bedtime. Do all this for 7 days. Take with at least 8 ounces (large glass) of water, do not lie down for 30 minutes after. 14 capsule 12/15/2023 12/22/2023 Activelisinopril 20 mg oral tablet (20 sources)Angiotensin Converting Enzyme InhibitorStart: 63-99-2944uxte 1 tablet by mouth once daily in the morninglisinopril 20 MG tablet Indications: Essential hypertension TAKE 1 TABLET BY MOUTH EVERY DAY IN THEMORNING 100 tablet 3 04/22/2024 ActiveStart: 57-78-1783wgbj 1 tablet by mouth once daily in the morninglisinopril 20 MG tablet Indications: Essential hypertension (CMS/HCC) TAKE 1 TABLET BY MOUTH EVERY DAY IN THE MORNING 90 tablet 11/03/2023 Active Start: 08-29-2017 End: 09-72-0646tvqe 1 tablet by mouth once dailyLisinopril 10 mg Tablet Discontinued 10 MG PO Daily August 28, 2017 11:00pm May 08, 2024 9:39amtake 1 tablet by mouth every twenty-four hoursLisinopril 20 MG 1 tablet Orally Once a day Cxmvof52 hr metoprolol succinate 25 mg extended release oral tablet (20 sources)beta-Adrenergic BlockerStart: 11-11-2024 End: 34-65-0121dfud 1 tablet by mouth once dailymetoprolol succinate XL (Toprol- XL) 25 MG 24 hr tablet Indications: Essential (primary) hypertension TAKE 1 TABLET (25 MG) BY MOUTH DAILY DO NOT CRUSH OR CHEW TAKE WITH 50 MG TAB 100 tablet 3 12/06/2024 ActiveStart: 96-29-5881dcdw 1 tablet by mouth once daily metoprolol succinate XL (Toprol-XL) 50 MG 24 hr tablet Indications: Essential hypertension TAKE 1 TABLET (50 MG) BY MOUTH DAILY 90 tablet 1 10/08/2024 Active Start: 31-59-3281upmn 1 tablet by mouth every twenty-four hoursMetoprolol Succinate 50 mg tablet extended release 24 hr Active MG PO May 08, 2024 12:00amStart: 04-22-2024 End: 31-38-6824otrx 1 tablet by mouth once dailymetoprolol succinate XL (Toprol- XL) 25 MG 24 hr tablet Indications: Essential hypertension (CMS/HCC) TAKE 1 TABLET BY MOUTH EVERY DAY 100 tablet 3 04/22/2024 08/26/2024 Discontinued (Other)Start: 03-30-2024 End: 62-20-7271tcxa 1 tablet by mouth once daily, then take 1 tablet by mouth once dailymetoprolol succinate XL (Toprol-XL) 50 MG 24 hr tablet Indications: Essential hypertension (CMS/HCC) Take 1 tablet (50 mg) by mouth Daily TAKE 1 TABLET BY MOUTH EVERY DAY 30 tablet 3 03/30/2024 ActiveStart: 11-03-2023 End: 66-45-9666uglh 1 tablet by mouth once dailymetoprolol succinate XL (Toprol- XL) 25 MG 24 hr tablet Indications: Essential hypertension (CMS/HCC) TAKE 1 TABLET BY MOUTH EVERY DAY 90 tablet 11/03/2023 03/30/2024 Discontinued (Reorder) Start: 08-29-2017 End: 65-33-1492opbp 0.5 tablet by mouth once dailyMetoprolol Tartrate 25 mg Tablet Discontinued 0.5 TAB PO Daily August 28, 2017 11:00pm April 9:39amtake 1 tablet by mouth every twenty-four hoursMetoprolol Succinate ER 25 MG 1 tablet Orally Once a day ActivepredniSONE 20 mg oral tablet (1 source)Start: 23-25-0384vnix 2 tablets by mouth once dailyPrednisone 20 mg tablet Active 20 MG PO .COMPLEX May 08, 2024 12:00am Take 2 tabs po dailyx 5 days Completed/Discontinued Medications MedicationDrug Class(es)DatesSig (Normalized)Sig (Original)nitrofurantoin, macrocrystals 25 mg / nitrofurantoin, monohydrate 75 mg oral capsule (3 sources)Nitrofuran AntibacterialStart: 03-16-2024 End: 15-18-3354oyjh 1 capsule by mouth in the morningnitrofurantoin, macrocrystal-monohydrate, (Macrobid) 100 MG capsule Indications: Acute cystitis without hematuria Take 1 capsule (100 mg) by mouth in the morning and 1 capsule (100 mg) before bedtime. Do all this for 7 days. 14 capsule 03/16/2024 03/30/2024 Discontinued (Other) Problems Active Problems Problem ClassificationProblemDateDocumented DateEpisodic/ChronicAbdominal pain (1 source)Abdominal pain; Translations: [Unspecified abdominal pain]Episodic Adjustment disorders (20 sources)Adjustment disorder with anxious mood; Translations: [Adjustment disorder with anxiety]Onset: 668805-78-0539ZmdtsaqQikfqqz disorders (19 sources)Anxiety; Translations: [Other specified anxiety disorders]Onset: 214119-42-7958PgkorrtCgzfav (20 sources)Asthmatic bronchitis; Translations: [Unspecified asthma, uncomplicated]Onset: 992163-47-9768WdtuhjcHnreyty kidney disease (20 sources)Chronic kidney disease stage 3A ; Translations: [Chronic kidney disease, stage 3a]Onset: 545258-96-4058HeebbxkMbfjqle obstructive pulmonary disease and bronchiectasis (20 sources)Chronic obstructive lung disease; Translations: [Chronic obstructive pulmonary disease, unspecified]Onset: 134585-87-7923ChcgxbtUvoyiobhxo associated with dizziness or vertigo (2 sources)Dizziness and giddiness; Translations: [Dizziness and giddiness] Onset: 03-80-8416EhoxwljdQvfjdind atherosclerosis and other heart disease (20 sources)Coronary arteriosclerosis; Translations: [Atherosclerotic heart disease of [place] coronary artery without angina pectoris]Onset: 03-25-2022 24-70-3399SwbrtimIzzljovs mellitus without complication (2 sources)Abnormal glucose tolerance test; Translations: [Other abnormal glucose]36-37-0934WfaemjmbYaadgzxod of lipid metabolism (20 sources)Pure hypercholesterolemia; Translations: [Pure hypercholesterolemia, unspecified]Onset: 804764-33-5886OwvzzqlAvqkwduaw hypertension (20 sources)Essential hypertension; Translations: [Essential (primary) hypertension]Onset: 11-06-2021 Resolved: 81-08-1992ZllojqaMsswrsnuzqck with complications and secondary hypertension (4 sources)Hypertensive chronic kidney disease with stage 1 through stage 4 chronic kidney disease, or unspecified chronic kidney disease; Translations: [HTN CKD W/STAGE 1-4 CKD/UNS CKD]Onset: 27-13-1859QmfofgsQfcjlgqtlul deficiencies (20 sources)Vitamin D deficiency; Translations: [Vitamin D deficiency, unspecified]Onset: 439465-33-6602EmhblooBzobcpdme or stenosis of precerebral arteries (18 sources)Carotid artery stenosis; Translations: [Occlusion and stenosis of unspecified carotid artery]Onset: 334798-60-1698BrvtwgaHolfh nervous system disorders (19 sources)Tarsal tunnel syndrome; Translations: [Tarsal tunnel syndrome, unspecified lower limb]Onset: 243551-21-9062WglnmqmKjluy nutritional; endocrine; and metabolic disorders (1 source)Obese class I; Translations: [Body mass index (BMI) 33.0-33.9, adult] ChronicOther nutritional; endocrine; and metabolic disorders (19 sources)Obese class II; Translations: [Class 2 obesity]Onset: 01-22-2023 04-12-6223PwccqywJymgp nutritional; endocrine; and metabolic disorders (20 sources)Body mass index 30+ - obesity; Translations: [Body mass index (BMI) 35.0-35.9, adult]Onset: 400367-79-6221EipdfpnRvvmk nutritional; endocrine; and metabolic disorders (20 sources)Obesity caused by energy imbalance; Translations: [Morbid (severe) obesity due to excess calories]Onset: 714350-37-5575KsmjdjkIoqwy upper respiratory disease (19 sources)Seasonal allergic rhinitis; Translations: [Other seasonal allergic rhinitis]Onset: 922717-00-7388JhyrzsmWptnt upper respiratory infections (2 sources)Acute maxillary sinusitis; Translations: [Acute maxillary sinusitis, unspecified]45-58-8419NllzqkscZwlybhnjx-related disorders (20 sources)Smoker; Translations: [Nicotine dependence, unspecified, uncomplicated]Onset: 839637-14-4451PemsjdsLqrdhhyiryjd (1 source)M53.3 - Sacrococcygeal disorders, not elsewhere classified; Translations: [M53.3 - Sacrococcygeal disorders, not elsewhere classified]Onset: 34-04-0398Iqrwhil tract infections (1 source)Acute cystitis; Translations: [Acute cystitis without hematuria] 49-98-8527Dhojamxb Past or Other Problems Problem ClassificationProblemDateDocumented DateEpisodic/ChronicChronic kidney disease (6 sources)Chronic kidney disease; Translations: [CHRONIC KIDNEY DISEASE STAGE 3B]Onset: 11-21-2020 Resolved: 37-53-4136Lkotsxbu of mouth; excluding dental (20 sources)Disorder of salivary gland; Translations: [Disease of salivary gland, unspecified]Onset: 978831-92-4150HcbhxucuYasn disorders (19 sources)Mood disordersOnset: 735584-98-4014Rsctorymefo chest pain (18 sources)Chest pain; Translations: [Chest pain, unspecified]Onset: 03-25-2022 99-46-9747WnblfcfvQrzag aftercare (1 source)long term care phlebotomist (current) use of non-steroidal anti-inflammatories (NSAID) Onset: 11-06-2021 Resolved: 47-91-4476VtfitexuQngsw gastrointestinal disorders (20 sources)Constipation; Translations: [Constipation, unspecified]Onset: 814370-98-1408TgphlazlHseoe lower respiratory disease (14 sources)Multiple nodules of lung; Translations: [Other nonspecific abnormal finding of lung field]Onset: 332172-60-0749XvjwuulzPlexg nervous system disorders (19 sources)Skin sensation disturbance; Translations: [Unspecified disturbances of skin sensation]Onset: 525543-93-7201MqanleetOrhjz screening for suspected conditions (not mental disorders or infectious disease) (20 sources)Electrocardiogram abnormal; Translations: [Abnormal electrocardiogram [ECG] [EKG]]Onset: 620814-63-1539Cppspflj Results Test NameValueInterpretationReference RangeFacilityOrders Onlyon 12-09-2024 Orders [id number] Antonio Blackwell 1955 F Date Provider Department Center 12/09/2024 [id number], HISTORICAL [facility] Family History Problem Relation Age of Onset Coronary artery disease Father Family Status - Relation Status Age at Mother Father DeceasedNormalUniparkview [facility]CA ECHO DOPPLER COMPLETE on 41-31-5625[address] [address] Cardiology Report Signed Patient: ANTONIO BLACKWELL MR#: [id number] : 1955 Acct:[id number] Age/Sex: 69 / F ADM Date: 12/08/24 Loc: CARD Attending Dr: FELICITAS QUINTANA Ordering Physician: FELICITAS QUINTANA Date of Service: 12/08/24 Procedure(s): CA echo doppler complete Accession Number(s): [id number] cc: RUFUS TEJEDA ; FELICITAS QUINTANA Patient Name: ANTONIO BLACKWELL MR#: [id number] : 1955 Exam Date: 12/08/2024 Ordering Doctor: DR FELICITAS QUINTANA M.D. ECHOCARDIOGRAM REPORT PROCEDURE: CA ECHO DOPPLER COMPLETE INDICATIONS: Dizziness, coronary artery disease, smoker, COPD, hypertension COMPARISON: None. DESCRIPTION: COMPLETE ECHOCARDIOGRAM Real-time transthoracic echocardiography with 2D, M-mode, spectral and color flow Doppler performed. QUALITY: LEFT VENTRICLE: Normal chamber size. Proximal septal hypertrophy (sigmoid septum). Estimated left ventricular ejection fraction is 65%. LV EF: Normal left ventricular ejection fraction, (>55%). DIASTOLIC: Diastolic function is indeterminate. ATRIAL SEPTUM: LEFT ATRIUM: Normal chamber size. RIGHT ATRIUM: Normal chamber size. RIGHT VENTRICLE: Normal chamber size. Normal right ventricular systolic function. TRICUSPID VALVE: Normal mobility and thickness. No stenosis with trivial regurgitation. Doppler studies reveal mildly (35-45) elevated right sided pressures. RVSP 41 mmHg MITRAL VALVE: Normal mobility and thickness. No evidence of mitral valve stenosis. Mild mitral annular calcification. No mitral regurgitation. AORTIC VALVE: Normal trileaflet appearance. Normal leaflet mobility. No evidence of aortic valve stenosis. Multifocal calcifications. No aortic regurgitation. AORTIC ROOT: Normal diameter and appearance, measuring 2.8 cm. Ascending aorta is normal in size, measuring 3.0 cm. PULMONIC VALVE: Normal thickness and mobility. No stenosis. No regurgitation. PERICARDIUM: No evidence of pericardial effusion. IVC: Collapses with inspiration. PLEURA: CONCLUSION: 1. Normal left ventricular size and systolic function. LVEF is estimated at 65%. 2. Normal right ventricular size and systolic function. 3. No significant valvular dysfunction. 4. Mildly elevated right-sided pressures. RVSP is 41 mmHg. 5. No pericardial effusion. Adult Echocardiography Procedure Report Left Ventricle LVEDD (3.7 - 5.6 cm): 3.44 cm LVESD (2.2 - 4.0 cm): 2.22 cm LVIVS thickness (0.6 - 1.2 cm): 1.05 cm LVPW thickness (0.5 - 1.0 cm): 1.13 cm e': 0.09 m/s E - e': 8.08 LVOT Max Gradient: 2.44 mm[Hg] LVOT Area (cm2): 0.78 m/s Peak Velocity (LVOT): 0.78 m/s Mean Velocity (LVOT): 0.54 m/s LVOT Diameter 1.99 cm Left Ventricular Ejection Fraction: 65 % Left Atrium LA Volume Index (2D A2C): 22.30 ml/m2 Left Atrium Systolic Dimension: 2.73 cm Mitral Valve MV E to A Ratio: 1.06 Mitral Valve A-Wave Peak Velocity: 0.67 m/s Mitral Valve E-Wave Peak Velocity: 0.71 m/s Right Ventricle Aorta AO Root Diam: 2.85 cm Ascending Ao Diam: 2.96 cm Aortic Valve AoV Area (Peak Ze): 1.84 cm2, 1.84 cm2 AoV Area (VTI): 2.17 cm2, 2.17 cm2 Peak Velocity(Antegrade Flow): 1.32 m/s Peak Gradient(Antegrade Flow): 6.99 mm[Hg] Mean Velocity(Antegrade Flow): 0.74 m/s Mean Gradient(Antegrade Flow): 2.68 mm[Hg] Velocity Time Integral: 26.38 cm Tricuspid Valve Peak Velocity (Regurgitant Flow): 1.87 m/s, 2.13 m/s, 3.08 m/s Pulmonic Valve Peak Gradient: 1.59 mm[Hg], 2.40 mm[Hg] Right Atrium Right Atrium Systolic Pressure: 30.31 ml, 30.31 ml Dictated by: Felicitas Quintana M.D. on 12/08/2024 at 18:02 Approved by: Felicitas Quintana M.D. on 12/08/2024 at 18:05 Dictated By: FELICITAS QUINTANA Signed By: (more content not included)...TBHRadiology, Radiologist, MD - 12/08/2024 [place] [address] Cardiology Report Signed Patient: ANTONIO BLACKWELL MR#: [id number] : 1955 Acct:[id number] Age/Sex: 69 / F ADM Date: 12/08/24 Loc: CARD Attending Dr: FELICITAS QUINTANA Ordering Physician: FELICITAS QUINTANA Date of Service: 12/08/24 Procedure(s): CA echo doppler complete Accession Number(s): [id number] cc: RUFUS TEJEDA ; FELICITAS QUINTANA Patient Name: ANTONIO BLACKWELL MR#: [id number] : 1955 Exam Date: 12/08/2024 Ordering Doctor: DR FELICITAS QUINTANA M.D. ECHOCARDIOGRAM REPORT PROCEDURE: CA ECHO DOPPLER COMPLETE INDICATIONS: Dizziness, coronary artery disease, smoker, COPD, hypertension COMPARISON: None. DESCRIPTION: COMPLETE ECHOCARDIOGRAM Real-time transthoracic echocardiography with 2D, M-mode, spectral and color flow Doppler performed. QUALITY: LEFT VENTRICLE: Normal chamber size. Proximal septal hypertrophy (sigmoid septum). Estimated left ventricular ejection fraction is 65%. LV EF: Normal left ventricular ejection fraction, (>55%). DIASTOLIC: Diastolic function is indeterminate. ATRIAL SEPTUM: LEFT ATRIUM: Normal chamber size. RIGHT ATRIUM: Normal chamber size. RIGHT VENTRICLE: Normal chamber size. Normal right ventricular systolic function. TRICUSPID VALVE: Normal mobility and thickness. No stenosis with trivial regurgitation. Doppler studies reveal mildly (35-45) elevated right sided pressures. RVSP 41 mmHg MITRAL VALVE: Normal mobility and thickness. No evidence of mitral valve stenosis. Mild mitral annular calcification. No mitral regurgitation. AORTIC VALVE: Normal trileaflet appearance. Normal leaflet mobility. No evidence of aortic valve stenosis. Multifocal calcifications. No aortic regurgitation. AORTIC ROOT: Normal diameter and appearance, measuring 2.8 cm. Ascending aorta is normal in size, measuring 3.0 cm. PULMONIC VALVE: Normal thickness and mobility. No stenosis. No regurgitation. PERICARDIUM: No evidence of pericardial effusion. IVC: Collapses with inspiration. PLEURA: CONCLUSION: 1. Normal left ventricular size and systolic function. LVEF is estimated at 65%. 2. Normal right ventricular size and systolic function. 3. No significant valvular dysfunction. 4. Mildly elevated right-sided pressures. RVSP is 41 mmHg. 5. No pericardial effusion. Adult Echocardiography Procedure Report Left Ventricle LVEDD (3.7 - 5.6 cm): 3.44 cm LVESD (2.2 - 4.0 cm): 2.22 cm LVIVS thickness (0.6 - 1.2 cm): 1.05 cm LVPW thickness (0.5 - 1.0 cm): 1.13 cm e': 0.09 m/s E - e': 8.08 LVOT Max Gradient: 2.44 mm[Hg] LVOT Area (cm2): 0.78 m/s Peak Velocity (LVOT): 0.78 m/s Mean Velocity (LVOT): 0.54 m/s LVOT Diameter 1.99 cm Left Ventricular Ejection Fraction: 65 % Left Atrium LA Volume Index (2D A2C): 22.30 ml/m2 Left Atrium Systolic Dimension: 2.73 cm Mitral Valve MV E to A Ratio: 1.06 Mitral Valve A-Wave Peak Velocity: 0.67 m/s Mitral Valve E-Wave Peak Velocity: 0.71 m/s Right Ventricle Aorta AO Root Diam: 2.85 cm Ascending Ao Diam: 2.96 cm Aortic Valve AoV Area (Peak Ze): 1.84 cm2, 1.84 cm2 AoV Area (VTI): 2.17 cm2, 2.17 cm2 Peak Velocity(Antegrade Flow): 1.32 m/s Peak Gradient(Antegrade Flow): 6.99 mm[Hg] Mean Velocity(Antegrade Flow): 0.74 m/s Mean Gradient(Antegrade Flow): 2.68 mm[Hg] Velocity Time Integral: 26.38 cm Tricuspid Valve Peak Velocity (Regurgitant Flow): 1.87 m/s, 2.13 m/s, 3.08 m/s Pulmonic Valve Peak Gradient: 1.59 mm[Hg], 2.40 mm[Hg] Right Atrium Right Atrium Systolic Pressure: 30.31 ml, 30.31 ml Dictated by: Felicitas Quintana M.D. on 12/08/2024 at 18:02 Approved by: Felicitas Quintana M.D. on 12/08/2024 at 18:05 Dictated By: FELICITAS QUINTANA Signed By: 12/08/241805 DD/ 04 TD/TT: [employer] Bpm Developer: [facility] HealthcareRadiology Study observation (narrative)[facility] ECHO DOPPLER COMPLETEOrdered By: Radiologist Radiology on 38-23-2578[facility] Work Phone: Office [place] [phone]-up [id number] Antonio Blackwell 1955 F Date Provider Department [place] 11/29/2024 [facility] S[facility] Family History Problem Relation Age of Onset Coronary artery disease Father Family Status - Relation Status Age at Mother Father Level of Service:98394 CO OFFICE/OUTPATIENT NEW MODERATE MDM 45 MINUTESNormal [facility] HospitalCALCITRIOL 1,25 DIHYDROXYVITAMIN Don 64-74-7609ZABGFCQ D, 1,25 (OH)2, TOTAL35 pg/nRXurttm08-09[facility] Comment on above:Performed By: #### [id number], [id number] #### [facility] [address] [place] [address] Residential Carpenter: Mary Tao #### [phone] #### [facility] [address] [facility], [address] [place] [address] Residential Carpenter: Aditya Gambino MD #### [id number] #### [facility]/[place] [address] [facility] [place] [address] Residential Carpenter: Aaron Muñoz M.D.,PhDVITAMIN D2, 1,25 (OH)2<8NormalQuest DiagnosticsComment on above:Result Comment: Vitamin D3, 1,25(OH)2 indicates both endogenous production and supplementation. Vitamin D2, 1,25(OH)2 is an indicator of exogenous sources, such as diet or supplementation. Interpretation and therapy are based on measurement of Vitamin D,1,25(OH)2, Total. This test was developed and its analytical performance characteristics have been determined by [facility] [place], [place]. It has not been cleared or approved by the FDA. This assay has been validated pursuant to the CLIA regulations and is used for clinical purposes.Performed By: #### [id number], [id number] #### [facility] [address] [place], [place] [id number] Residential Carpenter: Mary Tao #### [phone] #### [facility] [address], [address] [place] [address] Residential Carpenter: Aditya Gambino MD #### [phone] #### [facility]/[address] [place], [place] Residential Carpenter: Aaron Muñoz M.D.,PhDVITAMIN D3, 1,25 (OH)235 pg/mLNormal [facility] DiagnosticsComment on above:Performed By: #### [id number], 6399 #### [facility] [address] [place] [address] Residential Carpenter: Mary Tao #### 7600 #### [facility] [address], [address] [place] [address] Residential Carpenter: Aditya Gambino MD #### 28197 #### [facility]/[place] [id number] [facility] [place], [place] Residential Carpenter: Aaron Muñoz M.D.,PhDCBC (INCLUDES DIFF/PLT)on 04-06-2024 Basophils (Bld) [#/Vol]0.04 10*3/uLNormal0-200Quest DiagnosticsComment on above: Performed By: #### 79494, 6399 #### [facility] [address] [place] [address] Residential Carpenter: Mary Tao #### 7600 #### [facility] [address], [address] [place] [address] Residential Carpenter: Aditya Gambino MD #### 25211 #### [facility]/[address] [place] Residential Carpenter: Aaron Muñoz M.D.,PhDBasophils/100 WBC (Bld)0.6 %Normal [facility] DiagnosticsComment on above:Performed By: #### 20991, 6399 #### [facility] [place] [address] Residential Carpenter: Mary Tao #### 7600 #### [facility] [address], [address] [place] [address] Residential Carpenter: Aditya Gambino MD #### 76186 #### [facility]/[address] [place], [place] Residential Carpenter: Aaron Muñoz M.D.,PhDEosinophils (Bld) [#/Vol]0.37 10*3/uL [id number] DiagnosticsComment on above:Performed By: #### 79844, 6399 #### [place] [address] Residential Carpenter: Mary Tao #### 7600 #### [facility] of [address], [address] [place], [place] [address] Residential Carpenter: Aditya Gambino MD #### 76467 #### [facility]/[place] [address] [facility] [address] [place] Residential Carpenter: Aaron Muñoz M.D.,PhDEosinophils/100 WBC (Bld)5.6 %Normal [facility] DiagnosticsComment on above:Performed By: #### 68204, 6399 #### [facility] [address] [place] [address] Residential Carpenter: Mary Tao #### 7600 #### [facility] [address], [address] [place] [address] Residential Carpenter: Aditya Gambino MD #### 15436 #### [facility]/[place] [id number] [facility] [place], [place] Residential Carpenter: Aaron Muñoz M.D.,PhDErythrocyte distribution width (RBC) [Ratio]13.4 %Wnteti02.0-15.0Quest DiagnosticsComment on above:Performed By: #### 38717, 6399 #### [facility] [address] Residential Carpenter: Mary Tao #### 7600 #### [facility] [address], [address] [place], [place] [address] Residential Carpenter: Aditya Gambino MD #### 39246 #### [facility] [address] [facility] [place], [place] Residential Carpenter: Aaron Muñoz M.D.,PhDHematocrit (Bld) [Volume fraction]45.1 %High35.0-45.0Quest DiagnosticsComment on above:Performed By: #### 67140, 6399 #### [facility] [address] [place] [address] Residential Carpenter: Mary Tao #### 7600 #### [facility] [address], [address] [place] [address] Residential Carpenter: Aditya Gambino MD #### 81123 #### [facility] [address] [place] Residential Carpenter: Aaron Muñoz M.D.,PhDHemoglobin (Bld) [Mass/Vol]15.0 g/dL Tzxkzb68.7-15.5Quest DiagnosticsComment on above:Performed By: #### 55854, 6399 #### [facility] [address] [place] [address] Residential Carpenter: Mary Tao #### 7600 #### [facility] of [address], [address] [place], [place] [address] Residential Carpenter: Aditya Gambino MD #### 45056 #### [facility]/[address] [place], [place] Residential Carpenter: Aaron Muñoz M.D.,PhDLymphocytes (Bld) [#/Vol]2.039 10*3/uL [id number] DiagnosticsComment on above:Performed By: #### 86670, 6399 #### [facility] [address] [place] [address] Residential Carpenter: Mary Tao #### 7600 #### [facility] of [address], [address] [place], [place] [address] Residential Carpenter: Aditya Gambino MD #### 10780 #### [facility]/[place] [id number] [facility] [place] Residential Carpenter: Aaron Muñoz M.D.,PhDLymphocytes/100 WBC (Bld)30.9 %Normal [facility]osticsComment on above:Performed By: #### 08633, 6399 #### [facility] [address] [place] [address] Residential Carpenter: Mary Tao #### 7600 #### [facility] [address], [address] [place], [place] [address] Residential Carpenter: Aditya Gambino MD #### 15250 #### [facility] [place], [place] Residential Carpenter: Aaron Muñoz M.D.,PhDCLAXTON-HEPBURN [facility]ICAL [facility]ENTER (RBC) [Entitic mass]30.2 pgNormal 27.0-33.0Quest DiagnosticsComment on above:Performed By: #### 66826, 6399 #### [facility] [address] [place] [address] Residential Carpenter: Mary Tao #### 7600 #### [facility] [address], [address] [place], [place] [address] Residential Carpenter: Aditya Gambino MD #### 26035 #### [facility]/[address] [place], [place] Residential Carpenter: Aaron Muñoz M.D.,PhDMONTEFIORE NYACK [facility]PITAL (RBC) [Mass/Vol]33.3 g/dLNormal 32.0-36.0Quest DiagnosticsComment on above:Result Comment: For adults, a slight decrease in the calculated MCHC value (in the range of 30 to 32 g/dL) is most likely not clinically significant; however, it should be interpreted with caution in correlation with other red cell parameters and the patient's clinical condition.Performed By: #### 93535, 6599 #### [facility] [address] [place], [place] [address] Residential Carpenter: Mary Tao #### 7600 #### [facility] [address], [address] [place], [place] [address] Residential Carpenter: Aditya Gambino MD #### 55088 #### [facility] [place] Residential Carpenter: Aaron Muñoz M.D.,PhDOKLAHOMA HEARTH [facility] [place] (RBC) [Entitic vol]90.7 fLNormal 80.0-100.0Quest DiagnosticsComment on above:Performed By: #### 84299, 6399 #### [facility] [address] [place] [address] Residential Carpenter: Mary Tao #### 7600 #### [facility] [address], [address] [place] [address] Residential Carpenter: Aditya Gambino MD #### 48928 #### [facility]/[address] [place], [place] Residential Carpenter: Aaron Muñoz M.D.,PhDMonocytes (Bld) [#/Vol]0.601 10*3/uL [id number] DiagnosticsComment on above:Performed By: #### 57851, 6399 #### [facility] [address] [place] [address] Residential Carpenter: Mary Tao #### 7600 #### [facility] [address], [address] [place] [address] Residential Carpenter: Aditya Gambino MD #### 44563 #### [facility]/[address] [place] Residential Carpenter: Aaron Muñoz M.D.,PhDMonocytes/100 WBC (Bld)9.1 %Normal [facility]osticsComment on above:Performed By: #### 32941, 6398 #### [facility] [address] [place] [address] Residential Carpenter: Mary Tao #### 7600 #### [facility] [address], [address] [place], [place] [address] Residential Carpenter: Aditya Gambino MD #### 44324 #### [facility]/[address] [place] Residential Carpenter: Aaron Muñoz M.D.,PhDNeutrophils (Bld) [#/Vol]3.551 10*3/uL [id number] DiagnosticsComment on above:Performed By: #### 27016, 6399 #### [facility] [address] [place] [address] Residential Carpenter: Mary Tao #### 7600 #### [facility] [place] [address] [place] , [address] [place] [address] Residential Carpenter: Aditya Gambino MD #### 47640 #### [facility] [place] Residential Carpenter: Aaron Muñoz M.D.,PhDNeutrophils/100 WBC (Bld)53.8 %Normal [facility]osticsComment on above:Performed By: #### 07665, 6399 #### [facility] [address] [place], [place] [address] Residential Carpenter: Mary Tao #### 7600 #### [facility] [address], [address] [place] [address] Residential Carpenter: Aditya Gambino MD #### 72809 #### [facility] [place] Residential Carpenter: Aaron Muñoz M.D.,PhDPlatelet mean volume (Bld) [Entitic vol]11.1 fLNormal7.5-12.5Quest DiagnosticsComment on above:Performed By: #### 30008, 6399 #### [facility] [address] [place] [address] Residential Carpenter: Mary Tao #### 7600 #### [facility] [address], [address] [place], [place] [address] Residential Carpenter: Aditya Gambino MD #### 85126 #### [facility] [place] Residential Carpenter: Aaron Muñoz M.D.,PhDPlatelets (Bld) [#/Vol]168 10*3/uL [id number] DiagnosticsComment on above:Performed By: #### 72515, 6399 #### [facility] [address] [place] [address] Residential Carpenter: aMry Tao #### 7600 #### [facility] of [address], [address] [place] [address] Residential Carpenter: Aditya Gambino MD #### 32349 #### [facility]/[address] [place], [place] Residential Carpenter: Aaron Muñoz M.D.,PhDRBC ([facility]) [#/Vol]4.97 10*6/uLNormal 3.80-5.10Quest DiagnosticsComment on above:Performed By: #### 31292, 6399 #### [facility] [place] [address] Residential Carpenter: Mary Tao #### 7600 #### [facility] [address], [address] [place] [address] Residential Carpenter: Aditya Gambino MD #### 42954 #### [facility]/[place] [id number] [facility] [address] [place] Residential Carpenter: Aaron Muñoz M.D.,PhDWBC ([facility]) [#/Vol]6.6 10*3/uLNormal 3.8-10.8Quest DiagnosticsComment on above:Performed By: #### 10599, 6399 #### [facility] [address] Residential Carpenter: Mary Tao #### 7600 #### [facility] [address], [address] [place], [place] [address] Residential Carpenter: Aditya Gambino MD #### 07249 #### [facility] [address] [place] Residential Carpenter: Aaron Muñoz M.D.,PhDCOMPREHENSIVE METABOLIC PANELon 90-26-2457Bxibmux [Mass/Vol]3.9 g/dLNormal3.6-5.1Quest DiagnosticsComment on above:Performed By: #### 95492, 6399 #### [facility] [address] [place], [place] [address] Residential Carpenter: Mary Tao #### 7600 #### [facility] of [address], [address] [place], [place] [id number] Residential Carpenter: Aditya Gambino MD #### 22263 #### [facility]/[address] [place], [place] Residential Carpenter: Aaron Muñoz M.D.,PhDAlbumin/Globulin [Mass ratio]1.8 {ratio}Normal1.0-2.5Quest DiagnosticsComment on above:Performed By: #### 63756, 6399 #### [facility] [address] [place] [address] Residential Carpenter: Mary Tao #### 7600 #### [facility] of [address], [address] [place], [place] [address] Residential Carpenter: Aditya Gambino MD #### 22650 #### [facility]/[place] [address] [facility] [place] Residential Carpenter: Aaron Muñoz M.D.,PhDALP [Catalytic activity/Vol]65 U/L [id number] DiagnosticsComment on above:Performed By: #### 88948, 6399 #### [facility] [address] [place] [address] Residential Carpenter: Mary Tao #### 7600 #### [facility] of [address], [address] [place], [place] [address] Residential Carpenter: Aditya Gambino MD #### 94657 #### [facility] [address] [place], [place] Residential Carpenter: Aaron Muñoz M.D.,PhDALT [Catalytic activity/Vol]13 U/L Normal6-29Quest DiagnosticsComment on above:Performed By: #### 21931, 6399 #### [facility] [address] [place] [address] Residential Carpenter: Mary Tao #### 7600 #### [facility] of [place] [address] [place] [address], [address] [place] [address] Residential Carpenter: Aditya Gambino MD #### 61860 #### [facility]/[address] [place], [place] Residential Carpenter: Aaron Muñoz M.D.,PhDAST [Catalytic activity/Vol]16 U/L [id number] DiagnosticsComment on above:Performed By: #### 63974, 6399 #### [facility] [address] [place] [address] Residential Carpenter: Mary Tao #### 7600 #### [facility] of [place] [address], [address] [place] [address] Residential Carpenter: Aditya Gambino MD #### 65791 #### [facility]/[address] [place], [place] Residential Carpenter: Aaron Muñoz M.D.,PhDBilirubin [Mass/Vol]0.6 mg/dLNormal 0.2-1.2Quest DiagnosticsComment on above:Performed By: #### 82724, 6399 #### [facility] [address] [place] [address] Residential Carpenter: Mary Tao #### 7600 #### [facility] [address], [address] [place] [address] Residential Carpenter: Aditya Gambino MD #### 76210 #### [facility]/[address] [place], [place] Residential Carpenter: Aaron Muñoz M.D.,PhDBUN/CREATININE RATIOSEE NOTE:Normal 6-22Quest DiagnosticsComment on above:Result Comment: Not Reported: BUN and Creatinine are within reference range.Performed By: #### 70903, 6399 #### [facility] [address] [place] [address] Residential Carpenter: Mary Tao #### 7600 #### [facility] [address], [address] [place] [address] Residential Carpenter: Aditya Gambino MD #### 92242 #### [facility]/[address] [place], [place] Residential Carpenter: Aaron Muñoz M.D.,PhDCalcium [Mass/Vol]9.0 mg/dLNormal 8.6-10.4[facility] DiagnosticsComment on above:Performed By: #### 86769, 6399 #### [facility] [address] [place] [address] Residential Carpenter: Mary Tao #### 7600 #### [facility] [address], [address] [place], [place] [address] Residential Carpenter: Aditya Gambino MD #### 10907 #### [facility]/[address] [place], [place] Residential Carpenter: Aaron Muñoz M.D.,PhDChloride [Moles/Vol]107 mmol/LNormal 98-110Quest DiagnosticsComment on above:Performed By: #### 70346, 6399 #### [facility] [address] [place] [address] Residential Carpenter: Mary Tao #### 7600 #### [facility] [address] [place], [place] [address] , [address] [place], [place] [id number] Residential Carpenter: Aditya Gambino MD #### 74233 #### [facility] [place] [id number] [facility] [address] [place] Residential Carpenter: Aaron Muñoz M.D.,PhDCO2 [Moles/Vol]28 mmol/RGldgsc12-17 [facility]osticsComment on above:Performed By: #### 16584, 6399 #### [facility] [address] [place] [address] Residential Carpenter: Mary Tao #### 7600 #### [facility] [address] [place] , [address] [place] [address] Residential Carpenter: Aditya Gambino MD #### 34862 #### [facility] [address] [place], [place] Residential Carpenter: Aaron Muñoz M.D.,PhDCreatinine [Mass/Vol]0.86 mg/dLNormal 0.50-1.05Quest DiagnosticsComment on above:Performed By: #### 11558, 6399 #### [facility] [address] [place] [address] Residential Carpenter: Mary Tao #### 7600 #### [facility] [place] [address] [place] , [address] [place], [place] [address] Residential Carpenter: Aditya Gambino MD #### 90994 #### [facility] [address] [place], [place] Residential Carpenter: Aaron Muñoz M.D.,PhDGFR/1.73 sq M.predicted among non- blacks MDRD (S/P/Bld) [Vol rate/Area]74 mL/min/{1.73_m2}Normal> OR = 60Quest DiagnosticsComment on above:Performed By: #### 58317, 6399 #### [facility] [address] [place] [address] Residential Carpenter: Mary Tao #### 7600 #### [facility] [address] [place] , [address] [place] [address] Residential Carpenter: Aditya Gambino MD #### 27838 #### [facility]/[address] [place], [place] Residential Carpenter: Aaron Muñoz M.D.,PhDGlobulin (S) [Mass/Vol]2.2 g/dLNormal 1.9-3.7Quest DiagnosticsComment on above:Performed By: #### 67277, 6399 #### [facility] [address] [place] [address] Residential Carpenter: Mary Tao #### 7600 #### [facility] [address], [address] [place] [address] Residential Carpenter: Aditya Gambino MD #### 10864 #### [facility]/[place] [id number] [facility] [place] Residential Carpenter: Aaron Muñoz M.D.,PhDGlucose [Mass/Vol]97 mg/sPEsfddq49-17 [facility]osticsComment on above:Result Comment: Fasting reference intervalPerformed By: #### 38335, 6399 #### [facility] [address] [place] [address] Residential Carpenter: Mary Tao #### 7600 #### [facility] [address], [address] [place] [address] Residential Carpenter: Aditya Gambino MD #### 78224 #### [facility]/[address] [place], [place] Residential Carpenter: Aaron Muñoz M.D.,PhDPotassium [Moles/Vol]4.2 mmol/LNormal 3.5-5.3Quest DiagnosticsComment on above:Performed By: #### 95647, 6399 #### [facility] [address] [place] [address] Residential Carpenter: Mary Tao #### 7600 #### [facility] [address], [address] [place] [address] Residential Carpenter: Aditya Gambino MD #### 68738 #### [facility] [place] Residential Carpenter: Aaron Muñoz M.D.,PhDProtein [Mass/Vol]6.1 g/dLNormal 6.1-8.1Quest DiagnosticsComment on above:Performed By: #### 56338, 6399 #### [facility] [address] [place] [address] Residential Carpenter: Mary Tao #### 7600 #### [facility] [address], [address] [place] [address] Residential Carpenter: Aditya Gambino MD #### 01965 #### [facility] [place] Residential Carpenter: Aaron Muñoz M.D.,PhDSodium [Moles/Vol]143 mmol/LNormal 135-146Quest DiagnosticsComment on above:Performed By: #### 05710, 6399 #### [facility] [address] [place] [address] Residential Carpenter: Mary Tao #### 7600 #### [facility] [address], [address] [place] [address] Residential Carpenter: Aditya Gambino MD #### 51683 #### [facility] [place] Residential Carpenter: Aaron Muñoz M.D.,PhDUrea nitrogen [Mass/Vol]16 mg/dLNormal 7-25Quest DiagnosticsComment on above:Performed By: #### 90587, 6399 #### [facility] [address] [place] [address] Residential Carpenter: Mary Tao #### 7600 #### [facility] [address], [address] [place] [address] Residential Carpenter: Aditya Gambino MD #### 62607 #### [facility] [address] [place] Residential Carpenter: Aaron Muñoz M.D.,PhDLIPID PANEL, [facility] 04-06-2024 Cholesterol [Mass/Vol]114 mg/dLNormal<200Quest DiagnosticsComment on above:Order Comment: FASTING:YES FASTING: YESPerformed By: #### 85703, 6399 #### [facility] [place] [address] Residential Carpenter: Mary Tao #### 7600 #### [facility] [address], [address] [place] [address] Residential Carpenter: Aditya Gambino MD #### 14190 #### [facility] [place] Residential Carpenter: Aaron Muñoz M.D.,PhDCholesterol in HDL [Mass/Vol]49 mg/dL Low> OR = 50Quest DiagnosticsComment on above:Order Comment: FASTING:YES FASTING: YESPerformed By: #### 43511, 6399 #### [facility] [address] [place] [address] Residential Carpenter: Mary Tao #### 7600 #### [facility] [address], [address] [place], [place] [address] Residential Carpenter: Aditya Gambino MD #### 51616 #### [facility] [address] [place] Residential Carpenter: Aaron Muñoz M.D.,PhDCholesterol in LDL [Mass/Vol]47 mg/dL NormalQuest DiagnosticsComment on above:Order Comment: FASTING:YES FASTING: YESResult Comment: Reference range: <100 Desirable range <100 mg/dL for primary prevention; <70 mg/dL for patients with CHD or diabetic patients with > or = 2 CHD risk factors. LDL-C is now calculated using the Flores calculation, which is a validated novel method providing better accuracy than the Friedewald equation in the estimation of LDL-C. Deangelo GONSALVES et al. SARAH. 2013;310(19): 8990-7715 (http://[employer]/faq/JGN570)Performed By: #### 26988, 6399 #### [facility] [place] [address] Residential Carpenter: Mary Tao #### 7600 #### [facility] [place] [address] [facility], [address] [place], [place] [address] Residential Carpenter: Aditya Gambino MD #### 57281 #### [facility] [place] Residential Carpenter: Aaron Muñoz M.D.,PhDCholesterol.total/Cholesterol in HDL [Mass ratio]2.3 {ratio}Normal<5.0Quest DiagnosticsComment on above:Order Comment: FASTING:YES FASTING: YESPerformed By: #### 73116, 6399 #### [facility] [place] [address] Residential Carpenter: Mary Tao #### 7600 #### [facility] [address], [address] [place] [address] Residential Carpenter: Aditya Gambion MD #### 17834 #### [facility] [place] Residential Carpenter: Aaron Muñoz M.D.,PhDNON HDL [id number] mg/dL (calc) Normal<130Quest DiagnosticsComment on above:Order Comment: FASTING:YES FASTING: YESResult Comment: For patients with diabetes plus 1 major ASCVD risk factor, treating to a non-HDL-C goal of <100 mg/dL (LDL-C of <70 mg/dL) is considered a therapeutic option.Performed By: #### 03278, 5599 #### [facility] [address] [place] [address] Residential Carpenter: Mary Tao #### 7600 #### [facility] [address], [address] [place] [address] Residential Carpenter: Aditya Gambino MD #### 40664 #### [facility] [place] [id number] [facility] [address] [place] Residential Carpenter: Aaron Muñoz M.D.,PhDTriglyceride [Mass/Vol]97 mg/dLNormal <150Quest DiagnosticsComment on above:Order Comment: FASTING:YES FASTING: YESPerformed By: #### 93669, 6399 #### [facility] [address] [place] [address] Residential Carpenter: Mary Tao #### 7600 #### [facility] [address], [address] [place] [address] Residential Carpenter: Aditya Gambino MD #### 59419 #### [facility] [place] [id number] [facility] [address] [place] Residential Carpenter: Aaron Muñoz M.D.,PhDTSHon 85-17-5218FDJ Qn1.04 m[IU]/L Normal0.40-4.50Quest DiagnosticsComment on above:Performed By: #### 02352, 6399 #### [facility] [address] [place] [address] Residential Carpenter: Mary Tao #### 7600 #### [facility] [address], [address] [place] [address] Residential Carpenter: Aditya Gambino MD #### 70409 #### [facility] [place] [id number] [facility] [address] [place] Residential Carpenter: Aaron Muñoz M.D.,PhDCT CHEST WO [facility] 84-55-3209[address] [place] [address] CT Scan Report Signed Patient: ANTONIO BLACKWELL MR#: [id number] : 1955 Acct:[id number] Age/Sex: 68 / F ADM Date: 07/17/23 Loc: CT Attending Dr: MALLORY ORTEGA Ordering Physician: MALLORY ORTEGA Date of Service: 07/17/23 Procedure(s): CT chest wo con Accession Number(s): [id number] cc: RUFUS TEJEDA [place] [id number] Patient Name: ANTONIO BLACKWELL MRN: [id number] date: 1955 Sex: F Assigned Patient Location: CT Current Patient Location: CT Accession/Order Number: [id number] Exam Date: 07/17/2023 09:30 Report Date: 07/17/2023 11:03 At the request of: MALLORY ORTEGA Procedure: CT chest wo con EXAM: CT [...] Category 2. Benign findings. Electronically authenticated by: BO ERICKSON Date: 07/17/2023 11:03 Dictated By: Bo Erickson M.D. Signed By: 07/17/23 1105 DD/ 110 TD/TT: Oracle Bpm Developer:TBHRadiology, Radiologist, MD Bowers 07/17/[address] [address] [address] Scan Report Signed Patient: ANTONIO BLACKWELL MR#: [id number] : 1955 Acct:[id number] Age/Sex: 68 / F ADM Date: 07/17/23 Loc: CT Attending Dr: MALLORY ORTEGA Ordering Physician: MALLORY ORTEGA Date of Service: 07/17/23 Procedure(s): CT chest wo con Accession Number(s): [id number] cc: RUFUS TEJEDA [place] [id number] Patient Name: ANTONIO BLACKWELL MRN: [id number] date: 1955 Sex: F Assigned Patient Location: CT Current Patient Location: CT Accession/Order Number: [id number] Exam Date: 07/17/2023 09:30 Report Date: 07/17/2023 11:03 At the request of: MALLORY ORTEGA Procedure: CT chest wo con EXAM: CT [...] Category 2. Benign findings. Electronically authenticated by: BO ERICKSON Date: 07/17/2023 11:03 Dictated By: Bo Erickson M.D. Signed By: 07/17/23 1105 DD/ 1103 TD/TT: Oracle Bpm Developer: [facility]oplinRadiology Study observation (narrative)[facility] CHEST WO CONOrdered By: Radiologist Radiology on 50-90-4514TDTU [employer] Work Phone: us KIDNEYSon [phone] KIDNEYSEXAMINATION: US KIDNEYS HISTORY: CKD stage 3B , [...] Electronically authenticated by: CAM BETANCOURT Date: 2020-11-13 09:[address] [place], [place] [address]PROF CHEM 8 (BAS METB)on 31-24-4754Ualed gap [Moles/Vol]16.3 mmol/LNormalUniversity Hospitals Geneva Medical CenterComment on above:Performed By: #### BMP #### [facility] [address] [place] [address] Julieta KarenCalcium [Mass/Vol]9.5 mg/dLNormal8.4-10.2The [facility] Comment on above:Performed By: #### BMP #### [facility] [address] [place] [address] Julieta KarenChloride [Moles/Vol]101 mmol/LTxnukq17-602Dtw [facility] Comment on above:Performed By: #### BMP #### [facility] [address] [place] [address] Julieta KarenCO2 [Moles/Vol]26.3 mmol/OHigbsy35.0-30.0[facility] Comment on above:Performed By: #### BMP #### [facility] [address] [place] [address] Julieta KarenCreatinine [Mass/Vol]1.22 mg/dLCritically high0.52-1.04The [facility] HospitalComment on above:Performed By: #### BMP #### [facility] [address] [place] [address] Julieta KarenEGFR-AF CHHVDYZT77 mL/min/1.76k2Nqxuhytlpq low>=60The [facility] HospitalComment on above:Performed By: #### BMP #### [facility] [address] [place] [address] Julieta KarenEGFR-NON AF QSWZOCZM39 mL/min/1.28q8Cwhhljgokz low>=60The [facility] HospitalComment on above:Performed By: #### BMP #### [facility] [address] [place] [address] Julieta KarenGlucose [Mass/Vol]100 mg/jDZxjyhp92-789Xxg [facility] HospitalComment on above:Performed By: #### BMP #### [facility] [address] [place], [place] [address] Julieta KarenPotassium [Moles/Vol]4.6 mmol/LNormal3.4-5.0[facility] Comment on above:Performed By: #### BMP #### [facility] [address] [place] [address] Julieta KarenSodium [Moles/Vol]139 mmol/HGasych134-889Izv [facility] Comment on above:Performed By: #### BMP #### [facility] [address] [place] [address] Julieta KarenUrea nitrogen [Mass/Vol]32.0 mg/dLCritically high7.0-17.0The [facility] HospitalComment on above:Performed By: #### BMP #### [facility] [address] [place] [address] Julieta KarenUrea nitrogen/Creatinine [Mass ratio]26.2 mg/mgNormalThAvita Health SystemComment on above:Performed By: #### BMP #### [facility] [address] [place] [address] Julieta KarenPROTEIN RAND URINEon 33-78-2453KO PROT<5.0Normal<=12.0The [facility] HospitalComment on above:Performed By: #### PROTU #### [facility] [address] [place] [address] Julieta KarenUA RANDOM W/MICROSCOPICon 92-52-2529UKSXMHBHBZUSWHaqythsxIYKM SEEN The [facility] HospitalComment on above:Performed By: #### UAMIC #### [facility] [address] [place] [address] Julieta KarenBilirubin Ql (U)NegativeNormalNEGATIVEThe [facility]ina HospitalComment on above:Performed By: #### UAMIC #### [facility] [address] [place] [address] Julieta KarenCASTNONE SEENNormalNONE SEENUniversity Hospitals Geneva Medical CenterComment on above: Performed By: #### UAMIC #### [facility] [address] [place] [address] Julieta KarenClarity (U)SL CLOUDYAbnormalCLEARThe [facility]ina HospitalComment on above:Performed By: #### UAMIC #### [facility] [address] [place] [address] Julieta KarenColor (U)LT. YELLOWNormalYELLOWUniversity Hospitals Geneva Medical CenterComhills & dales general hospital on above:Performed By: #### UAMIC #### [facility] [address] [place] [address] Julieta KarenCrystals LM Nom (Urine sed)NONE SEENNormalNONE SEENUniversity Hospitals Geneva Medical CenterComment on above:Performed By: #### UAMIC #### [facility] [address] [place] [address] Julieta KarenEpithelial cells LM Ql (Urine sed)RARENormalNONE SEEN /RAREUniversity Hospitals Geneva Medical CenterComhills & dales general hospital on above:Performed By: #### UAMIC #### [facility] [address] [place] [address] Julieta KarenGlucose Ql (U)NegativeNormalNEGATIVEUniversity Hospitals Geneva Medical CenterComment on above:Performed By: #### UAMIC #### [facility] [address] [place] [address] Julieta KarenHemoglobin Ql (U)MODERATEAbnormalNEGATIVEClermont County Hospital on above:Performed By: #### UAMIC #### [facility] [address] [place] [address] Julieta KarenKetones Ql (U)NegativeNormalNEGATIVEUniversity Hospitals Geneva Medical CenterComment on above:Performed By: #### UAMIC #### [facility] [address] [place] [address] Julieta KarenLEUKOCYTESTRACEAbnormalNEGATIVEUniversity Hospitals Geneva Medical CenterComhills & dales general hospital on above:Performed By: #### UAMIC #### [facility] [address] [place] [address] Julieta KarenMUCOUSNONE SEENNormalNONE SEENUniversity Hospitals Geneva Medical CenterComhills & dales general hospital on above: Performed By: #### UAMIC #### [facility] [address] [place] [address] Julieta KarenNitrite Ql (U)NegativeNormalNEGATIVEUniversity Hospitals Geneva Medical CenterComment on above:Performed By: #### UAMIC #### [facility] [address] [place] [address] Julieta KarenpH (U)5.5 [pH]Normal5-9The [facility] HospitalComment on above: Performed By: #### UAMIC #### [facility] [address] [place] [address] Julieta GnvdwDWK8-4Kkeuet1-2Vxs [facility] HospitalComment on above:Performed By: #### UAMIC #### [facility] [address] [place] [address] Julieta KarenSPEC GRAVITY1.082Xmdvcz8.005-<=1.025The [facility] HospitalComment on above:Performed By: #### UAMIC #### [facility] [address] [place] [address] Julieta KarenUA PROTEINNegativeNormalNEGATIVE/ TRACEThe [facility]ina HospitalComment on above:Performed By: #### UAMIC #### [facility] [address] [place] [address] Julieta KarenUrobilinogen Qn (U)0.2 {Khang'U}/dLNormal0.2 - 1.0The [facility] HospitalComment on above:Performed By: #### UAMIC #### [facility] [address] [place] [address] Julieta KarenWBC0-2AbnormalNONE SEENThe [facility]ina HospitalComment on above: Performed By: #### UAMIC #### [facility] [address] [place] [address] Julieta KarenXR hip LT min 2V(w/wo pelvis)*on 58-42-2139VO hip LT min 2V(w/wo pelvis)*[facility] [address] [place] [id number] XRay Report Signed Patient: Antonio Blackwell MR#: [id number] : 1955 Acct:[id number] Age/Sex: 63 / F ADM Date: 06/22/18 Loc: XDUCLY Room: Type: REG CLI Attending Dr: Christine oCrrea NP Ordering Provider: Christine Correa NP Date of Service: 06/22/18 XR/XR wrist RT min 3V*: PAIN AFTER FALL ([id number]) XR/XR hip LT min 2V(w/wo pelvis)*: PAIN AFTER FALL ([id number]) XR/XR sacrum coccyx min 2V: PAIN AFTER [...] Reagan Portillo M.D.06/22/2018 10:49 AM Dictation Location: [facility] Transcribed By: [facility] 06/22/18 1049 Dictated By: Reagan Portillo DO 06/22/18 1046 Signed By: 06/22/18 1049[facility] Vital Signs Date TimeVital SignValuePerforming TbeydxmsbBeduugdq99-55-6597 14:08-0400Body tukxqu038.4 Edyta Ortega NP Work Phone: [facility]OM[facility] JoplinTzcemwclwm02-22-2218 14:08-0400Body mass index (BMI) [Ratio]34.57 kg/q8QkiygnMallory Ortega CHANGE NUMBER OPERATOR Work Phone: [facility] JoplinIfzlvbiego68-70-0652 14:08-0400Body .29 kgMallory Ortega CHANGE NUMBER OPERATOR Work Phone: [facility] JoplinSaknvodwtp31-01-3323 14:08-0400Diastolic blood aboxetuv74 mm[Hg]Mallory Ortega NP Work Phone: [facility] JoplinJrccwcolev97-64-3244 14:08-0400Heart rate62 /min Mallory Ortega CHANGE NUMBER OPERATOR Work Phone: [facility]oplinWlgpgnulnp97-97-5271 14:08-0400Respiratory rate16 /minSjessica Ortega CHANGE NUMBER OPERATOR Work Phone: [facility] JoplinXjlavrqapp56-51-8864 14:08-4930JcX1% (BldA) [Mass fraction]97 %Mallory Ortega CHANGE NUMBER OPERATOR Work Phone: [facility]oplinHioavvuzfq54-51-2771 14:08-0400Systolic blood mdinvtqt998 mm[Hg]Mallory Ortega CHANGE NUMBER OPERATOR Work Phone: [facility]oplinUyvpyigvsv94-86-0271 08:07-0400Body kbarxg217.4 cmTemoen Hemmer PA Work Phone: [facility]oplinJbwfszswdk68-29-7480 08:07-0400Body mass index (BMI) [Ratio]35.07 kg/c8Lnuxd Hemmer PA Work Phone: [facility]oplinAznabavsox73-21-1746 08:07-0400Body temperature 98.29 [degF]Ann-Marie Hemmer PA Work Phone: [facility]oplinCybgcymyjg04-13-9545 08:07-0400Body sawkvb73.38 kgKaren Hemmer PA Work Phone: [facility] JoplinSbrbyhdgjb48-21-1572 08:07-0400Diastolic blood mm[Hg]Ann-Marie Hemmer PA Work Phone: [facility]oplinWhsgxtvsbz23-06-4710 08:07-0400Heart rate56 /min Ann-Marie Hemmer PA Work Phone: [facility] JoplinDhnwpdlgrf46-51-0792 08:07-0400Respiratory rate16 /minKaren Hemmer PA Work Phone: [facility]oplinLkpeebmdmj33-91-4308 08:07-9847IuZ3% (BldA) [Mass fraction]98 %Ann-Marie Hemmer PA Work Phone: [facility] JoplinYnbeezcdah60-23-6060 08:07-0400Systolic blood ksavyffm504 mm[Hg]Ann-Marie HERNANDEZ Work Phone: [facility]oplinMuwpeekpip00-91-0307 09:36-0500Body tkqvqu497.4 cmHol[facility]01-18-2025 09:36-0500Body mass index (BMI) [Ratio]34.4 kg/f2CjpyzidymHolmes County [facility]01-18-2025 09:36-0500Body .3 [degF][facility]01-18-2025 09:36-0500Body oazugx36 kgHol[facility]01-18-2025 09:36-0500Diastolic blood voezvdbm03 mm[Hg][facility]01-18-2025 09:36-0500 Heart rate72 /[facility]01-18-2025 09:36-0500 Respiratory rate18 /[facility]01-18-2025 09:36-0500 SaO2% (BldA) [Mass fraction]94 %[facility]01-18-2025 09:36-0500Systolic blood mtvwkdup095 mm[Hg][facility] 03-30-2024 15:05-0500Body kyvkyi731.4 cmRjuan Tejeda MD Work Phone: [facility]oplinOwelwlijhd22-17-5650 15:05-0500Body mass index (BMI) [Ratio]35.83 kg/r5WsxnvRufus Tejeda MD Work Phone: [facility]oplinBkgayegwiu85-23-3371 15:05-0500Body .1 kg Rufus Tejeda MD Work Phone: [facility]oplinLbvhnkjqml45-02-0918 15:05-0500Diastolic blood rlujnmfb32 mm[Hg]Rufus Tejeda MD Work Phone: [facility]oplinEvyzxhqdsr73-37-3766 15:05-0500Heart rate56 /min Rufus Tejeda MD Work Phone: [facility] JoplinQozcfreuow72-56-2192 15:05-3917MbF8% (BldA) [Mass fraction]97 %Rufus Tejeda MD Work Phone: [phone] [place], [place] [address]Awjtylrzkk12-36-0473 15:05-0500Systolic blood dahzgjgm909 mm[Hg]Rufus Tejeda MD Work Phone: [facility]oplinMtnoxxyofc43-36-1106 13:35-0400Body enghtd433.4 cmAnn-Marie Hemmer PA Work Phone: [facility]oplinNdkoxtxgie97-46-0931 13:35-0400Body mass index (BMI) [Ratio]35.35 kg/e8Ojhbv Hemmer PA Work Phone: [facility]oplinRplwhpedcj42-40-1727 13:35-0400Body temperature 99.19 [degF]Ann-Marie Hemmer PA Work Phone: [facility]oplinIuhtsbrxnb52-46-9535 13:35-0400Body eaiwzo86.01 kgKaren Hemmer PA Work Phone: [facility]oplinDvkigkzddj80-17-7049 13:35-0400Diastolic blood mm[Hg]Ann-Marie Hemmer PA Work Phone: [facility]oplinJtmkuzqgea42-81-9135 13:35-0400Heart rate57 /min Ann-Marie Hemmer PA Work Phone: [facility]oplinPcjchlsatl04-29-2122 13:35-0400Respiratory rate16 /minKaren Hemmer PA Work Phone: [facility] JoplinNyvdlzypaa68-04-5677 13:35-6941KxR7% (BldA) [Mass fraction]94 %Ann-Marie Hemmer PA Work Phone: [place] [address]Kcokpntzgb58-01-6523 13:35-0400Systolic blood emkgnzia151 mm[Hg]Ann-Marie Hemmer PA Work Phone: [facility] JoplinTmyzaxsekt85-82-8620 11:20-0400Body dzjuqz921.4 Bisi Quevedo Other [employer] Other 669009-84-7282 11:20-0400Body mass index (BMI) [Ratio] 35.93 kg/m2Arturo Quevedo Other [employer] Other 07-19-2022 11:20-0400Body ctgkjaqgiez23.8 [degF]Arturo Quevedo Other [employer] Other 07-19-2022 11:20-0400Body waycex95.46 kgArturo Quevedo Other [employer] Other 07-19-2022 11:20-0400Diastolic blood qbvyhfcn22 mm[Hg] Arturo Quevedo Other [employer] Other 07-19-2022 11:20-0400Respiratory rate18 /minArturo Quevedo Other [facility] HealthcareP[facility] Other 07-19-2022 11:20-2167DmE6% (BldA) [Mass fraction]97 % Arturo Quevedo Other [facility] [employer] Other 07-19-2022 11:20-0400Systolic blood wgpycgun179 mm[Hg] Arturo Quevedo Other [employer] Other Encounters Encounter DateEncounter TypeCare ProviderFacilityStart: 01-31-2025 End: 49-14-6654AavdklTmhyl M Alda MD Work Phone: NOWI PerOchsner Medical Center MedinceComment on above:Adjustment disorder with anxietyStart: 12-08-2024 End: 82-56-2573Hfcgioopf Result EncounterGeneric External Data ProviderNOMS External Department UnsolicitedStart: 12-08-2024 End: 70-88-2591Wfmxlpmfh Result EncounterGeneric External Data ProviderNOMS External Department UnsolicitedStart: 11-29-2024 End: 49-69-5835czlwvkdsrwHSXBQIHighland District Hospital Start: 11-11-2024 End: 07-09-0922Mbgwjs Iva Ortega CHANGE NUMBER OPERATOR Work Phone: NOM[facility] CI FMStart: 11-11-2024 End: 85-56-3590Vdacoh Iva Ortega CHANGE NUMBER OPERATOR Work Phone: [facility] CI FMStart: 11-11-2024 End: 40-17-7415Ljptep outpatient visit 25 minutesMallory Ortega CHANGE NUMBER OPERATOR Work Phone: [facility] CI FMComment on above:Essential (primary) hypertension (Primary Dx)Start: 11-11-2024 End: 44-63-1952kjtivltzbkYLHCRZ M SHIVELYNot AvailableStart: 08-26-2024 End: 14-99-4517Oeuwny Precious Wilson PA Work Phone: [facility] CI FMStart: 08-26-2024 End: 24-14-3576Lrazuq Precious Wilson PA Work Phone: [facility] CI FMStart: 08-26-2024 End: 01-98-1211Trqzff outpatient visit 25 minutesAnn-Marie Wilson PA Work Phone: [facility]OM[facility] CI FMComment on above:Acute non-recurrent maxillary sinusitis (Primary Dx); Chronic obstructive pulmonary disease, unspecified; Morbid (severe) obesity due to excess calories (CMS/HCC); Pure hypercholesterolemia, unspecified (CMS/HCC); Body mass index (BMI) 35.0-35.9, adult; COPD exacerbation (CMS/HCC); Adjustment disorder with anxiety (CMS/HCC)Start: 08-26-2024 End: 19-95-4799beorfllocvPWRIV M HEMMERNot AvailableStart: 08-23-2024 End: 12-36-9481UjwlrpQdnohec ClausNOMS EXT DEPComment on above:Moderate persistent asthmatic bronchitis with acute exacerbation (CMS/HCC)Start: 05-08-2024 End: 23-34-5236equxudclvbWwqfqxubfOhioHealth Riverside [facility] Hospital Work Phone: Start: 05-08-2024 End: 68-08-4933Sbalwkf encounter procedureUnc Health [facility] [place] Work Phone: Start: 03-30-2024 End: 44-95-2656Ehxen of hemosiderin, Luna Tejeda MD Work Phone: NOMS HealthcareStart: 03-30-2024 End: 04-50-9409Acovoog encounter procedureRufus Tejeda MD Work Phone: [facility] CI FMComment on above:Routine general medical examination at [facility] facility (Primary Dx); Abnormal glucose tolerance test; Benign essential hypertension (CMS/HCC); Vitamin D deficiency; Pure hypercholesterolemia (CMS/HCC); Encounter for annual wellness exam in Medicare patient; Encounter for screening mammogram for malignant neoplasm of breast; Screening for thyroid disorder; Essential (primary) hypertension (CMS/HCC); Essential hypertension (CMS/HCC); Adjustment disorder with anxiety (CMS/HCC); SmokerStart: 03-30-2024 End: 44-21-6492cbecfmtgmpTFESP M ALDANot AvailableStart: 03-30-2024 End: 16-40-7615Muijno Adilia Tejeda MD Work Phone: [facility] CI FMStart: 03-30-2024 End: 20-57-0152Iycwmj Adilia Tejeda MD Work Phone: [facility] CI FMStart: 03-15-2024 End: 11-63-9276Nfpchlfah Clifton Tejeda MD Work Phone: [facility] CI FMStart: 02-20-2024 End: 31-57-0525JasrovJmewp M Alda MD Work Phone: [facility] CI FMComment on above:Adjustment disorder with anxiety (CMS/HCC)Start: 12-15-2023 End: 35-13-6066Syrjxc Precious HERNANDEZ Work Phone: [facility] CI FMStart: 12-15-2023 End: 10-83-6563Osgras Precious HERNANDEZ Work Phone: [facility] CI FMStart: 12-15-2023 End: 64-66-8957Kzioudafm encounterRufus Tejeda MD Work Phone: noms CI FMStart: 12-15-2023 End: 76-21-4916Hbawef outpatient visit 15 minutesAnn-Marie HERNANDEZ Work Phone: noms CI FMComment on above:Moderate persistent asthmatic bronchitis with acute exacerbation (CMS/HCC) (Primary Dx); Morbid (severe) obesity due to excess calories (CMS/HCC); Essential (primary) hypertension (CMS/HCC); Chronic obstructive pulmonary disease, unspecified (CMS/HCC); BMI 35.0-35.9,adultStart: 12-15-2023 End: 52-95-1995uvzevndmxeGVFAK M HEMMERNot AvailableStart: 07-17-2023 End: 33-21-4784Qfkptpzmf Result EncounterSjessica Ortega CHANGE NUMBER OPERATOR Work Phone: noms External Department UnsolicitedStart: 07-17-2023 End: 61-33-3508Rjwvdwtbd Result EncounterSjessica Ortega CHANGE NUMBER OPERATOR Work Phone: noms External Department UnsolicitedStart: 03-31-2023 ambulatoryPatrick R JOHNNIEFacility:EU BellevueStart: 11-06-2021 End: 82-79-2180cpdivlhibsVmdt [facility] Other [employer] Other Start: 25-10-5209Awxjdf outpatient new 30 minutesAziz DaniasFPG NephrologyStart: 71-56-4599rjinknrlooJO RUGCHELA ALDAFacility:V8Rngqe: 51-14-8900agppmbbbyeYF FELICITAS MOUKARBELFacility:Y1Ktouy: 12-13-2020 End: 05-23-3173oxrcylhzteRR RUGEN ALDAFacility:I5Gqjtl: 11-11-2020 End: 95-62-2726wbrfvqfhuwOJ CAM JIANGERFacility:E1Magqm: 06-22-2018 End: 39-53-6837Ppicetl encounter procedurePenereida Lemusity:[facility] Procedures DateProcedureProcedure DetailPerforming ClinicianStart: 68-77-6343BH ECHO DOPPLER COMPLETEGeneric External Data ProviderStart: 54-58-4229TW CHEST WO CON Mallory Ortega NP Work Phone: Start: 75-03-3142WoodnpbomlyDsgos Hemmer PA Work Phone: Start: 13-61-2069DtoyxmdujjgJczff Hemmer PA Work Phone: Plan of Treatment DateCare ActivityDetailAuthorStart: 83-60-3362Ocwrsdzfz for malignant neoplasm of colonNOMS HealthcareStart: 92-24-9786Mxtbvybhd for malignant neoplasm of breastMammogramNOMS HealthcareComment on above:Postponed from 02/07/2024 (Patient Refused)Start: 12-10-2025Medicare Annual Wellness (AWV)Medicare Annual Wellness (AWV)NOMS HealthcareStart: 69-57-9534Psbovyuleahi Vaccine: 65+ Years (1 of 2 - PCV)Pneumococcal Vaccine: 65+ Years (1 of 2 - PCV)NOMS HealthcareComment on above:Postponed from 1963 (Patient Refused)Start: 11-11-2024 End: 74-32-5210Rzmynvp encounter ttrjfjxeh34/24/2025 2:00 PM EDT Office Visit [facility] [address] [place] [address] Mallory Ortega CHANGE NUMBER OPERATOR [address] [place] [address] ArrivedNOMS CI FMComment on above:ArrivedStart: 09-30-2024 End: 58-53-4510Zqrqvpi encounter nftgnhriz14/12/2025 1:00 PM EDT Office Visit [facility] [address] [place] [address] Ann-Marie Wilson PA [address] [place] [address] NOMS CI FMStart: 08-26-2024 End: 22-88-7805Hfblhkr encounter /08/2025 8:00 AM EDT Office Visit [facility] [address] [facility] [address] [place] [address] Ann-Marie Wilson PA [address] [place] [address] ArrivedNOMS CI FMComment on above:ArrivedStart: 53-02-7526Higghpofj vaccinationInfluenza Vaccine (#1)NOMS HealthcareComment on above:Postponed from 12/21/2023 (Patient Refused)Start: 14-03-2928Scnhzngxj for malignant neoplasm of breastMammogramNOMS HealthcareComment on above:Postponed from 02/07/2024 (Patient Refused)Start: 03-30-2024 End: 06-49-9942Ykonyyi encounter procedureNOMS CI FMComment on above:Arrived Start: 03-30-2024 End: 26-74-6860TGY W Auto Differential panel - BloodCBC and differential Lab Routine Benign essential hypertension (CMS/HCC) Vitamin D deficiency Pure h ypercholesterolemia (CMS/HCC) Encounter for annual wellness exam in Medicare patient Expected: 03/30/2024 (Approximate), Expires: 03/30/2025[facility] Work Phone: Comment on above:Expected: 03/30/2024 (Approximate), Expires: 03/30/2025Start: 03-30-2024 End: 45-91-0995Rzywecfvmcbfm metabolic 2000 panel - Serum or PlasmaComprehensive metabolic panel Lab Routine Abnormal glucose tolerance test Benign essential hypertension (CMS/HCC) Vitamin D deficiency Encounter for annual wellness exam in Medicare patient Expected:03/30/2024 (Approximate), Expires: 03/30/2025NOTN HealthcareComment on above:Expected: 03/30/2024 (Approximate), Expires: 03/30/2025Start: 03-30-2024 End: 80-23-7002Baqcv 1996 panel - Serum or PlasmaLipid panel Lab Routine Pure hypercholesterolemia (CMS/HCC) Encounter for annual wellness exam in Medicare patient Expected: 03/30/2024 (Approximate), Expires: 03/30/2025[facility] Comment on above:Expected: 03/30/2024 (Approximate), Expires: 03/30/2025Start: 03-30-2024 End: 23-60-9785PF Breast - bilateral ScreeningBilateral screening mammogram Imaging Routine Encounter for screening mammogram for malignant neoplasm of breast Expected: 03/30/2024, Expires: 05/31/2025[facility] HealthcareComment on above: Expected: 03/30/2024, Expires: 05/31/2025Start: 03-30-2024 End: 44-78-9967Srrymuwngob [Units/volume] in Serum or PlasmaTSH Lab Routine Encounter for annual wellness exam in Medicare patient Screening for thyroid disorder Expected: 03/30/2024 (Approximate), Expires: 03/30/2025[facility] Comment on above:Expected: 03/30/2024 (Approximate), Expires: 03/30/2025Start: 03-30-2024 End: 60-17-2339Cgxawaq D 1,25 dihydroxyVitamin D 1,25 dihydroxy Lab Routine Vitamin D deficiency Encounter for annual wellness exam in Medicare patient Expected: 03/30/2024 (Approximate), Expires: 03/30/2025[facility] HealthcareComment on above:Expected: 03/30/2024 (Approximate), Expires: 03/30/2025Start: 03-04-2024 End: 99-33-8945Synqlnp encounter ewkcqknto76/14/2024 11:00 AM EST Office Visit [facility] [address] [facility] [address] [place] [address] Ann-Marie Wilson PA [address] [facility] [address] [place] [address] NOM[facility] CI FMStart: 40-75-2633Ohczyviftrpm Vaccine: 65+ Years (1 of 2 - PCV)Pneumococcal Vaccine: 65+ Years (1 of 2 - PCV)NOMS HealthcareComment on above:Postponed from 1963 (Patient Refused)Start: 29-56-5121Bskyokdfs for malignant neoplasm of breastMaogramRIVERTON HOSPITAL Healthcare Start: 10-05-2024Medicare Annual Wellness (AWV)Medicare Annual Wellness (AWV) [facility] HealthcareStart: 30-92-7329Iirttbjui vaccinationInfluenza Vaccine (#1)[facility] HealthcareStart: 12-15-2023 End: 24-70-2113Ihgatce encounter pcdnhidyw06/26/2024 1:30 PM EDT Office Visit [facility] [address] [place] [address] Ann-Marie Wilson PA [address] [place] [address] ArrivedNOMS CI FMComment on above:ArrivedStart: 43-30-8102Swxvnlupgofq Vaccine: 65+ Years (1 of 2 - PCV)Pneumococcal Vaccine: 65+ Years (1 of 2 - PCV)[facility] HealthcareStart: 19-02-4875Nuqdcmimv for malignant neoplasm of colonNOTN Healthcare Payers DatePayer CategoryPayerPolicy [id number] [facility] [id number] 2022-Present [address] [place] [address] [id number] 2022Medicare [id number] Health [id number] 2022Medicare [id number] 27-24-7432Waac-[id number] 2.16.840.1.827154.3.57[id number] 2.16.840.1.348012.3.57[id number] 2.16.840.1.862594.3.57[id number] 2.16.840.1.921673.3.57[id number] 2.16.840.1.230044.3.57[id number] 2.16.840.1.026866.3.57[id number] 2.16.840.1.397621.3.57[id number] 2.16.840.1.17[id number] 2.16.840.1.234076.3.579.2.531 Social History DateTypeDetailFacilityUnknown if ever smokedCytheris [email or web address] Other Start: 12-15-2023 End: 98-02-1441Xpj Assigned At BirthNometropolitan [facility] [email or web address] Other Start: 01-23-2023 End: 67-44-1574Jfepgji smoking status NHISSmokes tobacco dailyNOMS Healthcare History of tobacco useCigarette SmokerNOMS HealthcareStart: 86-22-3880Uxvvttd use and exposureSmokeless tobacco non-userNOMS HealthcareStart: 12-15-2023 End: 40-90-6728Hhlwbzykn beverage intakeEx-drinker (finding)[facility] Start: 12-15-2023 End: 70-55-1249Cczfgbq of Social functionMercy Hospital JoplinStart: 03-09-9709Ouzhqit Commentcaffeine intajke: 2-3 cups per dayMercy Hospital JoplinStart: 09-61-8887Bwf assigned at birthNot on fileRIVERTON HOSPITAL HealthcareStart: 07-70-4003Swnpkxlam beverage intakeNot AskedMercy Hospital JoplinStart: 21-53-2285Gddkpod smoking status NHISSmoker (finding)[facility] Hospitaltart: 37-69-1901HbgNcdjuj (finding) [facility] Hospitaltart: 57-62-6417Fsa Assigned At BirthFeVan Wert County Hospitaltart: 91-62-8536PlyUjmjtnHXVC Healthcare Functional Status WaeuLicryqgrwuScjfiqCyebpdds27-60-8775Lynglrn Health Questionnaire 2 item (PHQ- 2) [Reported][facility] Hospital JoplinLucqkxftbk62-67-5175Ibsswsj Health Questionnaire 2 item (PHQ- 2) [Reported][facility] Hospital JoplinDcgyjczenh67-61-5217Fczzsrt Health Questionnaire 2 item (PHQ- 2) [Reported][facility] Clinical Notes 11-06-2021 to 11-29-2024 Note Date & GeyyWuuuNkcfvktq47-60-9405 NoteUT Cardiology - [facility] Subjective Antonio Blackwell is a 69 [...] TABLET BY MOUTH EVERY (more content not included)...[facility] 11-11-2024 History of Present illness Narrative* Mallory Ortega, CHANGE NUMBER OPERATOR - 11/11/2024 2:00 PM EDT Images from the original note [...] started with a sore throat. She does feelstressed and is worried about her BP. Hypertension This is a chronic problem. The current episode started more than 1 year ago. The problem has been gradually worsening since onset. The problem is uncontrolled. (stress) There are no associated agentsto hypertension. Risk factors for coronary artery disease include stress, family history, obesity and post- menopausal state. Past treatments include VARGHESE inhibitors and [...] 2015 SECTION, LOW TRANSVERSE x3 1979,1982,1997 COLONOSCOPY CO REPAIR TEAR DUCTS Visit Vitals Smoking Status Every Day Review of Systems HENT: Positive for sinus pressure, sneezing and sore throat. Objective Physical Exam Vitals reviewed. Constitutional: Appearance: Normal appearance. HENT: Head: Normocephalic. Right Ear: A middle ear effusion is present. Left Ear: There is impacted cerumen. Nose: Right Turbinates: Swollen. Left Turbinates: Swollen. Mouth/Throat: Lips: Killian. Mouth: Mucous membranes are moist. Pharynx: Oropharynx [...] You will need to follow up in 2weeks for a blood pressure recheck. Take the xanax more frequently if needed as the stress can alsoincrease your blood pressure. No follow-ups on file. documented in this encounterMercy Hospital JoplinHmsalnpodq58-04-2800 History of Present illness Narrative* MARY Richardson - 08/26/2024 8:00 AM EDT Images from the original note were not included. HPI testing due Additional comments: She does get a chest CT done yearly and is overdue. She has lung nodules. She gets them done at [facility]. Last edited by Dulce Ramirez LPN on [...] 2015 SECTION, LOW TRANSVERSE x3 1979,1982,1997 COLONOSCOPY CO REPAIR TEAR DUCTS Visit Vitals BP (!) 144/94 Pulse 56 Temp 98.3 F Resp 16 Ht 4' 11.6 Wt 177 lb 3.2 oz SpO2 98% BMI 35.07 kg/m Smoking Status Every Day BSA 1.84 m Review of Systems Constitutional: Negative for chills, fatigue and fever. HENT: Positive for congestion, ear pain, postnasal drip, rhinorrhea, sinus pressure and sinus pain.Negative for sore throat. Respiratory: Positive for cough, [...] least every three months for monitoring. At eachfollow up visit I will reassess the patient's [...] for Medication Follow Up. documented in this encounterMercy Hospital JoplinGusffgfonr73-33-5222 Telephone encounter Note* Telephone Encounter - MARY Richardson - 08/24/2024 8:01 AM EDT No refill on antibiotic. Last OV 03/30/24. [facility] Ogevqgckws33-59-8629 Miscellaneous Notes* Telephone Encounter - MARY Richardson - 08/24/2024 8:01 AM EDT No refill on antibiotic. Last OV 03/30/24. documented in this encounterMercy Hospital JoplinHghwexvyhb56-80-9857 History of Present illness Narrative* Rufus Tejeda MD - 03/30/2024 3:20 PM ESTAssociated Problem(s): Smoker Discussed smoking cessation with the patient. Encouraged patient to try to cut back gradually and soon quit smoking. Discussed ways to quit smoking including gum, patches, medication, and gradually reducing the number of cigarettes smoked daily. 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 Patient voiced understanding. Benefits of cessation, both health and financial, were reviewed. * Rufus Tejeda MD - 03/30/2024 3:12 PM ESTAssociated Problem(s): Essential (primary) hypertension (CMS/HCC) Our specific goals, for your hypertension, is to keep your blood pressure less than 140/90, and theimportance of weight control. We made recommendations on [...] taking them as prescribed. DASH diet handouts * Rufus Tejeda MD - 03/30/2024 3:00 PM EST Images from the original note [...] by direct observation Three Word Registration: Banana, Maloy, Chair Clock Drawing: Normal Clock - 2 Three Word Recall: All 3 words correct - 3 Total Score (0-5 Points): 5 Pain Assessment Pain Score: 0 - No pain Advance Care Planning Do you have a living will?: No Do you have a medical power of associate attorney?: No Objective : BP 138/88 Pulse 56 [...] your blood pressure less than 140/90, and theimportance of weight control. We made recommendations on [...] on March 30, 2024 documented in this encounterMercy Hospital JoplinMizjsewkxc81-04-7918 Telephone encounter Note* Telephone Encounter - Ludivina Flood - 03/17/2024 8:40 AM EST Scheduled [facility] JoplinCuufhqxlof40-50-0560 Miscellaneous Notes* Telephone Encounter - Ludivina Flood - 03/17/2024 8:40 AM EST Scheduled * Telephone Encounter - Radha Estrada MA - 03/17/2024 7:41 AM EST Patient was last seen in November. Macrobid called in but probably needs an appointment per jessee * Telephone Encounter - Ludivina Flood - 03/16/2024 12:52 PM EST Pt called again this morning wanting antibiotics for a UTI * Telephone Encounter - Ludivina Flood - 03/15/2024 2:44 PM EST Pt states she is getting an UTI. She'd like to have an antibiotic called in to [facility] if possible. She states she isn't able to come in for an appointment due to her having surgery todayand she is unable to leave him home alone. documented in this encounterMercy Hospital JoplinTmwfcglrkr80-28-1605 Telephone encounter Note* Telephone Encounter - Radha Estrada MA - 03/17/2024 7:41 AM EST Patient was last seen in November. Macrobid called in but probably needs an appointment per jessee [facility] JoplinYjpecqpqla00-73-1778 Telephone encounter Note* Telephone Encounter - Ludivina Flood - 03/16/2024 12:52 PM EST Pt called again this morning wanting antibiotics for a UTI [facility] JoplinNhgotlqjla08-41-1504 Telephone encounter Note* Telephone Encounter - Ludivina Flood - 03/15/2024 2:44 PM EST Pt states she is getting an UTI. [facility]. She states she isn't able to come in for an appointment due to her having surgery todayand she is unable to leave him home alone. [facility] JoplinCigepwrkfh42-37-2592 Telephone encounter Note* Telephone Encounter - Ludivina Flood - 02/20/2024 12:33 PM EDT Scheduled [facility] JoplinBjnotycvnz69-27-0175 Miscellaneous Notes* Telephone Encounter - Ludivina Flood - 02/20/2024 12:33 PM EDT Scheduled * Telephone Encounter - MARY Richardson - 02/20/2024 12:10 PM EDT OARRS reviewed, Rx sent into patient's pharmacy. Please help patient get set up for a wellness and medication follow up visit within the next month. * Telephone Encounter - Ludivina Flood - 02/20/2024 11:28 AM EDT ALPRAZolam (Xanax) 0.25 MG tablet to [facility] documented in this encounterMercy Hospital JoplinGgzkhkfsgy60-24-9620 Telephone encounter Note* Telephone Encounter - MARY Richardson - 02/20/2024 12:10 PM EDT OARRS reviewed, Rx sent into patient's pharmacy. Please help patient get set up for a wellness and medication follow up visit within the next month. [facility] JoplinFxneydwgdg21-44-8356 Telephone encounter Note* Telephone Encounter - Ludivina Flood - 02/20/2024 11:28 AM EDT ALPRAZolam (Xanax) 0.25 MG tablet to [facility] JoplinVanesxxcty75-75-5787 Telephone encounter Note* Telephone Encounter - MARY Richardson - 12/15/2023 5:30 PM EDT Kayla sent in for her. [facility] JoplinOlacxxstzc08-45-5991 Miscellaneous Notes* Telephone Encounter - MARY Richardson - 12/15/2023 5:30 PM EDT Kayla sent in for her. * Telephone Encounter - Ludivina Flood - 12/15/2023 2:25 PM EDT guaiFENesin-codeine (Robitussin-AC) 100-10 MG/5ML syru She wants to know if theres anything else she can have. Its $39 because her insurance doesn't coverit. documented in this encounterMercy Hospital JoplinHiqadlerpj42-64-7942 Telephone encounter Note* Telephone Encounter - Ludivina Flood - 12/15/2023 2:25 PM EDT guaiFENesin-codeine (Robitussin-AC) 100-10 MG/5ML syru She wants to know if theres anything else she can have. Its $39 because her insurance doesn't coverit. [facility] JoplinSmngtbuazl58-98-7220 History of Present illness Narrative* MARY Richardson - 12/15/2023 1:30 PM EDT Subjective Patient ID: Antonio Blackwell is a 68 y.o. female who presents for cough. Antonio is present today for evaluation of cough. Admits sinus pressure/pain, cough with yellow phlegm, post nasal drainage, bilateral ear discomfort (left worse than right), fatigue, yellow drainagefrom nose. She has been sick off/on for [...] 2015 SECTION, LOW TRANSVERSE x3 1979,1982,1997 COLONOSCOPY CO REPAIR TEAR DUCTS Visit Vitals BP 138/78 Pulse 57 Temp 99.2 F Resp 16 Ht 4' 11.6 Wt 178 lb 9.6 oz SpO2 94% BMI 35.35 kg/m Smoking Status Every Day BSA 1.85 m Review of Systems Constitutional: Positive for fatigue. Negative for chills and fever. HENT: Positive for congestion, ear pain, postnasal drip, rhinorrhea, sinus pressure and sinus pain.Negative for sore throat. Respiratory: Positive for cough. [...] obesity due to excess calories (CMS/HCC) Encouraged pt to stay hydrated. Essential (primary) hypertension (CMS/HCC) BP stable at this time. Will continue current meds and continue to monitor. Chronic obstructive pulmonary disease, unspecified (CMS/HCC) Continue inhaler as needed. BMI 35.0-35.9,adult Follow up if symptoms worsen or fail to improve. documented in this encounterMercy Hospital JoplinRuzkdvckam70-72-3512 Evaluation note* Encounter Date Diagnosis Assessment Notes Treatment Notes Treatment Clinical Notes Oct, Chronic kidney disease, stage 3a (ICD-10 - N18.31) CKD is likely from NSAID use. I asked the patient to stop NSAIDs. Blood pressure seems well controlled. Patient is already on lisinopril No fluid overload I asked the patient to stop NSAIDs Follow-up with the patient in 4 months Oct,rimary hypertension (ICD-10 - I10)Blood pressure seems well controlled. I will continue same blood pressure medication Oct,NSAID long-term use (ICD-10 - Z79.1)I asked the patient to stop NSAIDs and take Tylenol instead VAZATA Other Evaluation note* Diagnosis Adjustment disorder with anxiety (CMS/HCC) Adjustment disorder with anxiety [facility] encounter [facility] HealthcareEvaluation [facility]* Diagnosis Acute cystitis without hematuria- Primary documented in this encounter [facility]Evaluation note* Diagnosis Routine general medical examination [...] Tobacco use disorder documented in this encounter [facility]Evaluation [facility]* Diagnosis Moderate persistent asthmatic bronchitis with acute exacerbation (CMS/HCC)- Primary documented in this encounter [facility]Evaluation [facility]* Diagnosis Moderate persistent asthmatic bronchitis with acute exacerbation (CMS/HCC)- Primary Morbid (severe) obesity due to excess calories (CMS/HCC) Essential (primary) hypertension (CMS/HCC) Unspecified essential hypertension Chronic obstructive pulmonary disease, unspecified (CMS/HCC) BMI 35.0-35.9,adult documented in this encounter [facility] HealthcareEvaluation noteNo assessment information availableChildren'S Hospital For Rehabilitation Work Phone: Evaluation note* Diagnosis Routine general [...] Unspecified essential hypertension Adjustment disorder with anxiety ([facility]) Adjustment disorder with anxiety Smoker Tobacco use disorder Acute non-recurrent maxillary sinusitis- Primary Chronic obstructive pulmonary disease, unspecified Morbid (severe) obesity due to excess calories (CMS/HCC) Pure hypercholesterolemia, unspecified (CMS/HCC) Body mass index (BMI) 35.0-35.9, adult COPD exacerbation (CMS/HCC) Obstructive chronic bronchitis with exacerbation Adjustment disorder with anxiety ([facility]) Adjustment disorder with anxiety documented in this [...] essential hypertension documented in this encounter [facility] HealthcareEvaluation note* Diagnosis Routine general medical examination at health care facility- Primary Routine general medical examination at a health care facility Abnormal glucose tolerance test Impaired glucose tolerance test Benign essential hypertension Essential hypertension, benign Vitamin D deficiency Pure hypercholesterolemia Encounter for annual wellness exam in Medicare patient Encounter for screening mammogram for malignant neoplasm of breast Screening for thyroid disorder Essential (primary) hypertension Unspecified essential hypertension Essential hypertension Unspecified essential hypertension Adjustment disorder with anxiety Smoker Tobacco use disorder Adjustment disorder with anxiety documented in this encounter [facility] HealthcareHistory general Narrative - Reported* Type Description Date Medical History HTN Surgical HistoryC SECTIONS R6Znjkyngulxoubes Historysee aboveHospitalization HistoryHTN VAZATA Other Summary Purpose Family History Relationship Condition Age at Onset Recorded Date/T thanh father Unknown Heart diseaseUnknownmotherDiabetes mellitusUnknownDeceasedUnknown Advance Directives Advance Directive Response Recorded Date/ Time Advance Directives No August 29 8 4:39pm Chief Complaint and Reason for Visit Chief Complaint Admit Date body aches, congestion May 08 9:15am Additional Source Comments INFORMATION SOURCE (unrecogn ized section and content) DATE CREATED AUTHOR 07/01/2018 [facility] DATE CREATED AUTHOR AUTHOR'S ORGANIZ ATION 08/17/2021 [facility] DATE CREATED AUTHOR AUTHOR'S ORGANIZ ATION 12/31/2022 [facility] DATE CREATED AUTHOR AUTHOR'S ORGANIZ ATION 04/10/2024 [facility] DATE CREATED AUTHOR AUTHOR'S ORGANIZ ATION 11/13/2024 [facility] EPIC DATE CREATED AUTHOR AUTHOR'S ORGANIZ ATION 12/13/2024 [facility] REASON FOR VISIT (unrecogniz ed section and content) ReasonCommentsMedicare Annual Wellness Visit SubsequentPt bp today is 142/88 ReasonOnset DateCommentsMed Jivmwd3708/23/2024Wanted to know if she could get the same antibiotic sent in that she did last time she had a URI. Her son is in [facility] and she said she caught something there. She is traveling back and forth visiting him. [facility]archbold memorial hospitaltReasonAlvin J. Siteman Cancer Centermentstesting Mookie does get a chest CT done yearly and is overdue. She has lung nodules. She gets them done at [facility]. ReasonOnset DateCommentsMed Biwczt1101/31/2025 Care Teams (unrecognized sec tion and content) Team MemberRelationshipSpecialtyStart DateEnd Date Rufus Tejeda MD [address] [place] [address] PCP - GeneralFamily Medicine08/27/22Team MemberRelationshipSpecialtyStart DateEnd Date Rufus Tejeda MD [address] [facility] [address] [place] [address] [facility] - [facility]08/27/22Team MemberRelationshipSpecialtyStart DateEnd Date Rufus Tejeda MD [address] [facility] [address] [place] [address] [facility] - [facility]Bro[facility] Medicine08/27/22Team MemberRelationshipSpecialtyStart DateEnd Date Rufus Tejeda MD [address] [facility] [address] [place] [address] [facility] - [facility] Medicine08/27/22Team MemberRelationshipSpecialtyStart DateEnd Date Rufus Tejeda MD [address] [facility] [address] [place] [address] PCP - Generalmi Medicine08/27/22Team MemberRelationshipSpecialtyStart DateEnd Date Rufus Tejeda MD [address] [facility] [address] [place] [address] PCP - [facility]Bro[facility] Medicine08/27/22 Team Status: Active Member Role Status Dates Rufus Tejeda MD Primary Care Provider Active Team Status: Inactive Member Role Status Dates Rufus Tejeda MD Primary Care Provider Active S tart: May 08, 2024 End: May 08, 2024Millicent Caba ProviderActiveStart: May 08, 2024 End: May 08, 2024Team MemberRelationshipSpecialtyStart DateEnd Date Rufus Tejeda MD [address] [place] [address] PCP - [facility]08/27/22 Mallory Ortega, CHANGE NUMBER OPERATOR [address] [place] [address] PCP - [facility]05/28/24Te MemberRelationshipSpecialtyStart DateEnd Date Rufus Tejeda MD [address] [place] [address] PCP - [facility]08/27/22 Mallory Ortega, CHANGE NUMBER OPERATOR [address] [place] [address] PCP - [facility]05/28/24Te MemberRelationshipSpecialtyStart DateEnd Date Rufus Tejeda MD [address] [place] [address] PCP - [facility]08/27/22 Mallory Ortega, CHANGE NUMBER OPERATOR [address] [place] [address] PCP - [facility]05/28/24Te MemberRelationshipSpecialtyStart DateEnd Date Rufus Tejeda MD [address] [place] [address] PCP - [facility]08/27/22 Mallory Ortega, CHANGE NUMBER OPERATOR [address] [place] [address] PCP - [place] [address]Te MemberRelationshipSpecialtyStart DateEnd Date Rufus Tejeda MD [address] [facility] [address] [place] [address] PCP - [facility]08/27/22 Mallory Ortega, CHANGE NUMBER OPERATOR [address] [facility] [address] [place] [address] [facility]05/28/24Team MemberRelationshipSpecialtyStart DateEnd Date Rufus Tejeda MD [address] [facility] [address] [place] [address] [facility]08/27/22 Mallory Ortega, CHANGE NUMBER OPERATOR [address] [facility] [address] [place] [address] [facility]05/28/24 Bertha Hernandez, RN [address] [facility] [address] [place] [address] Registered NurseNortheast Georgia Medical Center [place] Goals (unrecognized section and content) Goals may [...] BE BASED ON THE PRIMARY CLINICAL RECORDS. [facility]. provides no warranty or guarantee of the accuracy or completeness of information in this document.
--- OUTSIDE RECORDS SUMMARY | 2025-04-20 09:04 | XMS_ITS | Clinical Summary ---
Author Organization [facility] Address [address] [place] [address] Care Team Providers Care Oil Pumper Name Role Phone Rufus House MD Primary Care Provider [phone] Love Ortega SPOUT LINER HELPER Unavailable [phone] Allergies Active AllergyReactionsCriticalityNoted JafjSirocrtlNqgtiapluyeAtkdf42/04/2023 AdglgusrpwgnQuud61/04/2023 Other Reaction(s): tongue swelling Gxbpubhkwhfx41/04/2023 Other Reaction(s): vomiting Sulfamethoxazole-Skvbltkktylx98/04/2023 Other Reaction(s): Fogginess Medications MedicationSigDispense QuantityRefillsLast FilledStart DateEnd DateStatus aspirin (Aspir-Low) 81 MG EC tablet 1 (one) time each day at the same time.Active albuterol HFA (ProAir HFA) 90 mcg/act inhaler Indications:Chronic obstructive pulmonary disease, unspecified COPD type (HCC) Inhale 2 puffs every 6 (six) hours if needed for wheezing. 18 g 1113Active lisinopril 20 MG tablet Indications:Essential hypertensionTAKE 1 TABLET BY MOUTH EVERY DAY IN THE MORNING 100 tablet 5Active atorvastatin (Lipitor) 40 MG tablet Indications:Pure hypercholesterolemiaTAKE 1 TABLET BY MOUTH EVERY DAY 100 tablet 5Active metoprolol succinate XL (Toprol-XL) 25 MG 24 hr tablet Indications:Essential (primary) hypertensionTAKE 1 TABLET (25 MG) BY MOUTH DAILY DO NOT CRUSH OR CHEW TAKE WITH 50 MG TAB 100 tablet 5Active ALPRAZolam (Xanax) 0.25 MG tablet Indications:Adjustment disorder with anxietyTake 1 tablet (0.25 mg) by mouth every 12 (twelve) hours 60 tablet 5Active metoprolol succinate XL (Toprol-XL) 50 MG 24 hr tablet Indications:Essential hypertensionTAKE 1 TABLET BY MOUTH EVERY DAY 90 tablet 5Active amLODIPine (Norvasc) 5 MG tablet Take 5 mg by mouth in the morning.Active metoprolol succinate XL (Toprol-XL) 50 MG 24 hr tablet Indications:Essential hypertensionTAKE 1 TABLET (50 MG) BY MOUTH DAILY 90 tablet Discontinued Active Problems ProblemNoted DateDiagnosed DateRUQ pain04/18/2025 Assessment & Plan (04/18/2025 1:52 PM EST): Positive Blevins's sign Avoid Fatty Foods Increase fluids US of GB ordered Viral upper respiratory tract xsrngkiyi71/29/2025 Assessment & Plan (04/18/2025 1:52 PM EST): Supportive Care Increase fluids, Tylenol, Ibuporfen, Sagar''''s vapor vapor rub, sagar''''s humidifier. Watch for bacterial infections. Mucinex D Pulmonary jbyapbg9603/04/2024MI 35.0-35.9,adult12/15/2023Morbid (severe) obesity due to excess jlqkacjc63/26/2024sthmatic dzczsowcvz55/04/2023lass 2 obesity 01/22/20234549Dxxjdncxzpyu39/04/2023isorder of salivary gland01/22/2023 Ymkemqoozlmbeh54/04/2023Skin sensation ojnonrpwutb16/04/2023Tarsal tunnel ajhidnfj92/04/2023Vitamin D gagxnyjdgm48/04/2023hronic obstructive pulmonary disease, gwishinfzww49/12/2023Essential (primary) uifnrvspalfz06/12/2023 Assessment & Plan (03/30/2024 3:12 PM EST): [...] them as prescribed. DASH diet handouts Pure jehprijciwikrmvomakb22/12/2023Seasonal allergic qmadgdka41/12/2023 Situational rfeeenh3110/30/20221091Mlnyhx60/12/2023 Assessment & Plan (03/30/2024 3:20 PM EST): Discussed smoking cessation with the patient. Encouraged patient to try to cut back gradually and soon quit smoking. Discussed ways to quit smoking including gum, patches, medication, and gradually reducing the number of cigarettes smoked daily. Discussed potential health risks of usp smoking. Patient voiced understanding. Benefits of cessation, both health and financial, were reviewed. Stage 3a chronic kidney tmuywvr6910/30/2022djustment disorder with anxiety 3Chest pain03/25/2022oronary syjspqbcpfkamngf99/05/2022 Electrocardiogram vteunexb99/05/2022Carotid artery hkddcaqc41/15/2022 Encounters DateTypeDepartmentCare WdjrGrrboxawasi13/29/2025 1:30 PM ESTOffice Visit [facility] [address] [facility] [address] [place] [phone] Rufus House MD RUQ pain (Primary Dx); Viral upper respiratory tract qklqepvcp39/29/2025amboo flowsheet [facility] [address] [facility] [address] [place] [address] Rufus House MD 04/18/20257166Nszjlg14/18/2025Refill [facility] [address] [place] [address] [place] [phone] Rufus House MD Essential lcwapzfwixnw83/13/2025[facility] [address] [place] [address] [place] [address] Rufus House MD Adjustment disorder with anxietyfrom Last 3 Months Family History Medical HistoryRelationNameCommentsHeart diseaseFatherDiabetesMotherHypertension MotherRelationNameStatusCommentsFatherDeceasedMotherDeceased Social History Tobacco UseTypesPacks/DayYears UsedDateSmoking Tobacco: Every DayCigarettes Smokeless Tobacco: Never Tobacco Cessation:Ready to Q uit: Not Asked; Counseling Given: Yes Alcohol UseStandard Drinks/WeekCommentsNot Currently0 (1 standard drink = 0.6 oz pure alcohol)caffeine intajke: 2-3 cups per dayPHQ-2AnswerDate RecordedPatient Health Questionnaire-2 Gnwxm140CommentsUnknownSex and Gender InformationValueDate RecordedSex Assigned at BirthNot on fileLegal SexFemale 07/03/2022 7:47 PM EDTGender IdentityNot on fileSexual OrientationNot on file Last Filed Vital Signs Vital SignReadingTime TakenCommentsBlood Wwlzkfbn270/6804/18/2025 1:33 PM EST Ajvig221804/18/2025 1:33 PM GLTDcqkoguhqqh25.3 ??C (99.2 ??F)04/18/2025 1:33 PM ESTRespiratory Jrih703111/11/2024 2:08 PM EDTOxygen Cmehamjudr30%04/18/2025 1:33 PM ESTInhaled Oxygen Concentration--Dcnsbj77.6 kg (171 lb)04/18/2025 1:33 PM EST Ykpnbn565.4 cm (5')04/18/2025 1:33 PM ESTBody Mass Index33. 1:33 PM EST Plan of Treatment Health MaintenanceDue DateLast DoneCommentsCT Ngcmvijbalsx1955FIT-DNA 1955FIT1955FOBT1955Piecyumjqsdcc1955Medicare Annual Wellness (AWV), 01/23/20232305Fbtclgfaq50, 02/06/2023, 02/06/2023ostponed from 02/07/2024 (Patient Refused)Colonoscopy Colorectal Cancer Egwhhwqsz06/14/2028Influenza Vaccine DiscontinuedPneumococcal Vaccine: 65+ YearsDiscontinued Procedures Procedure NamePriorityDate/TimeAssociated DiagnosisCommentsBI MAMMOGRAM SCREENING MVGQKLWOMLicwbrj64/19/2023 Encounter for screening mammogram for malignant neoplasm of breast RWIOABCSYODFlyyhfp06/14/2018 12:00 PM EDT from Last 3 Months or Most Recently Relevant to Health Maintenance Results * Bilateral screening mammogram (02/06/2023)Specimen (Source)Anatomical Location / LateralityCollection Method / VolumeCollection TimeReceived Time02/06/2023 [facility] - 02/06/2023 12:05 PM EDT normal Authorizing ProviderResult TypeResult StatusLove Ortega NPIMG BI PROCEDURES Final ResultPerforming OrganizationAddressCity/State/ZIP CodePhone Number [facility] [address] [place] [address], * Colonoscopy (09/01/2017 12:00 PM EDT)Anatomical RegionLateralityModality EndoscopySpecimen (Source)Anatomical Location / LateralityCollection Method / VolumeCollection TimeReceived Time09/01/2017 12:00 PM EDT Narrative 09/01/2017 12:00 PM EDT PERFORMED AT [facility] LOCATION:[id number] normal Procedure Note CONVERSION, GENERIC - 09/04/2022 PERFORMED AT [facility] LOCATION:[id number] normal Authorizing ProviderResult TypeResult Jeramie House MDENDOSCOPY PROCEDURE ORDERABLESFinal Result from Last 3 Months or Most Recently Relevant to Health [place] [address] Care Teams Team MemberRelationshipSpecialtyStart DateEnd Date Rufus House MD [address] [facility] [address] [place] [address] [facility] - [facility]22 Love Ortega NP [address] [facility] [address] [place] [address] PCP - ACO [facility]05/28/24
--- OUTSIDE RECORDS SUMMARY | 2025-04-20 09:04 | XMS_ITS | Encounter Summary ---
Author Organization [facility] Address [address] [place] [address] Care Team Providers Care Farm Machinery Engine Mechanic Name Role Phone Rufus House MD Primary Care Provider [phone] Love Ortega CERAMIC CAPACITOR PROCESSOR Unavailable [phone] Reason for Visit * ReasonCommentsMed Refill Encounter Details DateTypeDepartmentCare Team (Latest Contact Info)Xuduuxupexa36/18/2025Refill [facility] [place] [facility] [address] [place] [address] [place] [phone] Rufus House MD [address] [place] [address] [place] [address] Essential hypertension Social History Tobacco UseTypesPacks/DayYears UsedDateSmoking Tobacco: Every DayCigarettes Smokeless Tobacco: NeverAlcohol UseStandard Drinks/WeekCommentsNot Currently0 (1 standard drink = 0.6 oz pure alcohol)caffeine intajke: 2-3 cups per dayPHQ-2 AnswerDate RecordedPatient Health Questionnaire-2 Prhmr779 CommentsUnknownSex and Gender InformationValueDate RecordedSex Assigned at Not on fileLegal XmfDzyhek02/15/2023 7:47 PM EDTGender IdentityNot on fileSexual OrientationNot on filedocumented as of this encounter Plan of Treatment Not on file documented as of this encounter Visit Diagnoses Diagnosis Essential hypertension Unspecified essential hypertension documented in this encounter Additional Health Concerns AssessmentNoted TimePHQ-9 Depression Total Score: 12:00 PM EDT documented as of this encounter Care Teams Team MemberRelationshipSpecialtyStart DateEnd Date [place], Rugen M, MD [address] [facility] [address] [place] [address] [facility] - [facility]/27/22 Love Ortega NP [address] [facility] [address] [place] [address] PCP - ACO [place]05/28/24documented as of this encounter
--- OUTSIDE RECORDS SUMMARY | 2025-04-20 09:04 | XMS_ITS | Encounter Summary ---
Author Organization [facility] Address [address] [place] [address] Care Team Providers Care Portrait Photographer Name Role Phone Rufus House MD Primary Care Provider [phone] Love Ortega DINING CAR WAITER/WAITRESS Unavailable [phone] Encounter Details DateTypeDepartmentCare Team (Latest Contact Info)Wisubbdpqoe87/29/2025Travel Social History Tobacco UseTypesPacks/DayYears UsedDateSmoking Tobacco: Every DayCigarettes Smokeless Tobacco: NeverAlcohol UseStandard Drinks/WeekCommentsNot Currently0 (1 standard drink = 0.6 oz pure alcohol)caffeine intajke: 2-3 cups per dayPHQ-2 AnswerDate RecordedPatient Health Questionnaire-2 Tzopy516 CommentsUnknownSex and Gender InformationValueDate RecordedSex Assigned at Not on fileLegal RnxJtwspe07/15/2023 7:47 PM EDTGender IdentityNot on fileSexual OrientationNot on filedocumented as of this encounter Plan of Treatment Not on file documented as of this encounter Visit Diagnoses Not on filedocumented in this encounter Additional Health Concerns AssessmentNoted TimePHQ-9 Depression Total Score: 12:00 PM EDT documented as of this encounter Care Teams Team MemberRelationshipSpecialtyStart DateEnd Date Rufus House MD [address] [facility] 110 [place], [place] [phone] PCP - GeneralFamily Medicine08/27/22 Love Ortega NP [address] [place] [address] [place] [address] PCP - ACO [place]05/28/24documented as of this encounter
--- OUTSIDE RECORDS SUMMARY | 2025-04-20 09:04 | XMS_ITS | Encounter Summary ---
Author Organization [facility] Address [address] [place] [address] Care Team Providers Care Rn Transition Name Role Phone Rufus House MD Primary Care Provider [phone] Love Ortega INDUSTRIAL REHABILITATION CONSULTANT Unavailable [phone] Encounter Details DateTypeDepartmentCare Team (Latest Contact Info)Hfhzijqgsrh77/29/2025amboo flowsheet [facility] [place] [facility] [address] [place] [address] [place] [phone] Rufus House MD [address] [place] [address] [place] [address] Social History Tobacco UseTypesPacks/DayYears UsedDateSmoking Tobacco: Every DayCigarettes Smokeless Tobacco: NeverAlcohol UseStandard Drinks/WeekCommentsNot Currently0 (1 standard drink = 0.6 oz pure alcohol)caffeine intajke: 2-3 cups per dayPHQ-2 AnswerDate RecordedPatient Health Questionnaire-2 Ikhqv935 CommentsUnknownSex and Gender InformationValueDate RecordedSex Assigned at Not on fileLegal QjqXpwjdk89/15/2023 7:47 PM EDTGender IdentityNot on fileSexual OrientationNot on filedocumented as of this encounter Plan of Treatment Not on file documented as of this encounter Visit Diagnoses Not on filedocumented in this encounter Additional Health Concerns AssessmentNoted TimePHQ-9 Depression Total Score: 12:00 PM EDT documented as of this encounter Care Teams Team MemberRelationshipSpecialtyStart DateEnd Date Rufus House MD [address] [facility] [address] [place] [address] [facility] - [facility] Love Ortega NP [address] [facility] [address] [place] [address] PCP - ACO [facility]05/28/24documented as of this encounter
--- OUTSIDE RECORDS SUMMARY | 2025-04-20 09:04 | XMS_ITS | Clinical Summary ---
Author Organization [facility] Address [address] [place] [address] Care Team Providers Care Dipper Machine Operator Name Role Phone Rufus House MD Primary Care Provider [phone] Allergies Active AllergyReactionsCriticalityNoted EsqeOkzicyymWjcdlwdnhucBibgc94/04/2023 WotmldbkzsiwQzhnhybFabc53/04/2023 Other Reaction(s): tongue swelling Sulfa (Sulfonamide Antibiotics)01/24/2022ulfamethoxazole-TrimethoprimUnknown 01/22/2023 Other Reaction(s): Fogginess Medications MedicationSigDispense QuantityRefillsLast FilledStart DateEnd DateStatus ALPRAZolam (Xanax) 0.25 mg tablet alprazolam 0.25 mg tablet PRN105/05/2021ctive aspirin 81 mg EC tablet in the morning.Active atorvastatin (Lipitor) 40 mg tablet atorvastatin 40 mg tablet TAKE 1 TABLET BY MOUTH EVERY DAY FOR 90 DAYSActive lisinopril 20 mg tablet lisinopril 20 mg tablet TAKE 1 TABLET BY MOUTH EVERY DAYActive nitroglycerin (Nitrostat) 0.4 mg SL tablet Nitrostat 0.4 mg sublingual tabletActive isosorbide mononitrate ER (Imdur) 30 mg 24 hr tablet isosorbide mononitrate ER 30 mg tablet,extended release 24 hrActive sdlhkzwbiv-mbinxrox-xosiqbvyem (Breztri Aerosphere) 160-9-4.8 mcg/actuation HFA aerosol inhaler every 12 (twelve) hours.08/06/2021ctive amLODIPine (Norvasc) 5 mg tablet Indications:Primary hypertensionTake 1 tablet (5 mg) by mouth in the morning. 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 Do not crush or chew. 270 tablet 6Active Active Problems ProblemNoted DateDiagnosed DatePulmonary bfkpmxk6803/04/2024Morbid (severe) obesity due to excess cawhmdio72/26/9039Mqikaaefflqeie15/04/2023Vitamin D golwhrirsv10/04/2023djustment disorder with wxvqntv8510/21/2022ody mass index (BMI) 36.0-36.9, adult03/25/2022hest pain03/25/2022hronic obstructive pulmonary tfaaaye2703/25/2022oronary gdheoawvtcdfyjlb65/05/2022Electrocardiogram tsmhwghi37/05/2022arotid artery ryiajxsw77/15/2022ure hypercholesterolemia 11/06/2020kin sensation egznayiuxfr85/19/2021Tarsal tunnel xcaqmjgl70/19/2021 Asthmatic zsiszioysk16/29/2020Seasonal allergic iakihttm20/29/2020Sialoadenitis 12/30/20188078Hpdrvl98/29/2019Stage 3a chronic kidney lmtvlnm9404/27/2018Constipation 07/15/20172662Lgybfjm37/18/2017Hypertensive gbhuzbzy23/04/2017 Family History Medical HistoryRelationNameCommentsCoronary artery diseaseFatherRelationName StatusCommentsFatherDeceasedMotherDeceased Social History Tobacco UseTypesPacks/DayYears UsedDateSmoking Tobacco: Every DayCigarettes Smokeless Tobacco: Never Tobacco Cessation:Ready to Q uit: Not Asked; Counseling Given: Not Answered Alcohol UseStandard Drinks/WeekCommentsNot Currently0 (1 standard drink = 0.6 oz pure alcohol)CommentsUnknownSex and Gender InformationValueDate Recorded Sex Assigned at RdegkSvzfjw70/06/2025 9:20 AM EDTLegal NuzNvuniw08/29/2022 11:27 PM EDTGender KapkazbyBfdfda16/06/2025 9:20 AM EDTSexual OrientationHeterosexual or Lrougyrp40/06/2025 9:20 AM EDT Last Filed Vital Signs Vital SignReadingTime TakenCommentsBlood Ivzqltnl702/8008 3:33 PM EDT Touch7086 3:33 PM EDTTemperature--Respiratory Rate--Oxygen Ikvdspluzv52% 11/29/2024 3:33 PM EDTInhaled Oxygen Concentration--Oqdsgh58.4 kg (175 lb) 11/29/2024 3:33 PM YCXDhdzpu679.4 cm (5')11/29/2024 3:33 PM EDTBody Mass Index 34.18011/29/2024 3:33 PM EDT Plan of Treatment Health MaintenanceDue DateLast DoneCommentsCT Vdybyvyeubes1957FIT-DNA 1955FIT1955FOBT1957Medicare Annual Wellness (AWV)1955 Bdktdmigqmrsp1957Depression Occmklfsw92/21/1969Pneumococcal Vaccine: 50+ Years (1 of 2 - PCV)1976Adult Ioenqmc1203/11/1979Zoster Vaccines (1 of 2) 2007Fall Risk Meligilhn36/21/2022OVID-19 Vaccine (1 - season) 2024Influenza Vaccine (#1)12/20/20246784Rhgjqgrqc90 Nftdzepojjn13Colorectal Cancer Wdbmxbyxc00/14/2028HIB Vaccines Aged OutNo longer eligible based on patient's age to complete this topicHPV VaccinesAged OutNo longer eligible based on patient's age to complete this topic IPV VaccinesAged OutNo longer eligible based on patient's age to complete this topicMeningococcal B VaccineAged OutNo longer eligible based on patient's age to complete this topicMeningococcal VaccineAged OutNo longer eligible based on patient's age to complete this topicRotavirus VaccinesAged OutNo longer eligible based on patient's age to complete this topic Insurance [employer] [id number] Care Teams Team MemberRelationshipSpecialtyStart DateEnd Date Rufus House MD [address] [facility] PCP - Cyrezwu72/5/22
--- NOTE | 2025-04-20 09:05 | US_ITS ---
The [address] [address] Patient Name: ANTONIO BLACKWELL MRN: [id number] date: 1955 Sex: F Assigned Patient Location: [place] Current Patient Location: [place] Accession/Order Number: [id number] Exam Date: 04/20/2025 09:06 Report Date: 04/20/2025 10:20 At the request of: GAYLE TEJEDA Procedure: US right upper quadrant LIMITED RIGHT UPPER QUADRANT ABDOMINAL ULTRASOUND CLINICAL HISTORY: Right Upper Quadrant Pain the past 1-2 weeks COMPARISON: None The gallbladder is physiologically distended. There is a tiny 3 mm echogenic focus along the posterior gallbladder wall which could be a gallstone or polyp. Mobility was not indicated by the dentofacial orthopedics dentist. No wall thickening or pericholecystic fluid is seen. No intra- or extrahepatic biliary dilatation is evident. The common duct measures 2 - 3 mm. The liver is normal in echogenicity. No intrahepatic masses are seen. There is appropriate hepatopetal flow within the main portal vein. The pancreas shows no significant sonographic abnormality. Evaluation of the right kidney reveals no hydronephrosis or fluid within Wade's pouch. A small right midpole renal cyst is visualized measuring 12 x 10 x 14 mm. US/US right upper quadrant IMPRESSION: TINY GALLSTONE VERSUS POLYP. NO OTHER ACUTE FINDINGS. Impression dictated by: Ann-Marie Chaudhari M.D. 04/20/2025 10:20 AM Dictation Location: [place] [address] Electronically authenticated by: [id number] Date: 04/20/2025 10:20
== END 2025-04-20 09:02 | disposition home or self-care (01) ==
LOC: US 09:01
PROVIDERS: PCP Family Medicine; Visit Provider Family Medicine
DX: R10.11 Right upper quadrant pain (principal); R11.2 Nausea with vomiting, unspecified; R19.7 Diarrhea, unspecified
CPT/HCPCS: 76705